=== PATIENT | female | born 1970 | race Caucasian/White ===

== ENCOUNTER 2017-04-13 12:12 | Emergency (ER) | payer OTHER ==
[2017-04-13 12:21] VITALS: BP 137/81; PULSE 103; RESP 16; TEMP 97.8
[2017-04-13] MEDS ORDERED: DIPH,PERTUS(ACELL)TETVAC-LF 0.5 ML VIAL IM ONE (12:41)
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
== END 2017-04-13 13:23 | disposition home or self-care (01) ==
LOC: EC 12:12
DX: S01.511A Laceration without foreign body of lip, initial encounter (principal); F17.200 Nicotine dependence, unspecified, uncomplicated; W26.0XXA Contact with knife, initial encounter; Y93.89 Activity, other specified; Y04.0XXA Assault by unarmed brawl or fight, initial encounter
CPT/HCPCS: 12011; 99284

== ENCOUNTER → 2019-02-15 | Outpatient (CLI) | payer OTHER ==
--- NOTE | 2019-02-15 16:20 | CT ---
EXAMINATION TYPE: CT chest wo con DATE OF EXAM: 02/15/2019 COMPARISON: 09/08/2015 HISTORY: SOB, HX OF COPD CT DLP: 98.4 mGycm, Automated exposure control for dose reduction was used. CONTRAST: Performed injected with 0 mL of Isovue 300. TECHNIQUE: Axial images were obtained at 5 mm thick sections. Reconstructed images are reviewed on Backtrace I/O computer in the coronal plane. FINDINGS: Portion of the thyroid visualized is normal. No suspicious lung nodules or focal infiltrates are present. There is hyperinflation compatible some emphysematous change. No enlarged mediastinal or hilar adenopathy is evident. The ascending aorta diameter at the level o f the main pulmonary artery is 3.1 cm. The main pulmonary artery diameter at the bifurcation is 2.[address] sections are obtained through the upper abdomen. Abdomen is essentially unremarkable. IMPRESSIONS: 1. Hyperinflation likely related to some emphysematous change. 2. Exam appears stable from 09/08/2015
== END | disposition home or self-care (01) ==
LOC: RADCTMAIN 13:08
PROVIDERS: ATTEND Internal Medicine Pulmonary Disease
DX: R91.8 Other nonspecific abnormal finding of lung field (principal); R06.02 Shortness of breath; R05 Cough
CPT/HCPCS: 71250

== ENCOUNTER → 2019-03-15 | Outpatient (CLI) | payer OTHER ==
--- NOTE | 2019-03-16 13:36 | ECHOF ---
Referral Reason:R06.02 Shortness of Breath R05 Cough MEASUREMENTS -------- HEIGHT: 170.2 cm WEIGHT: 41.3 kg BP: 113/73 RVIDd: 2.1 cm (< 3.3) IVSd: 1.0 cm (0.6 - 1.1) LVIDd: 3.1 cm (3.9 - 5.3) LVPWd: 1.0 cm (0.6 - 1.1) IVSs: 1.2 cm LVIDs: 1.9 cm LVPWs: 1.4 cm LA Diam: 1.9 cm (2.7 - 3.8) LAESV Index (A-L): 16.12 ml/m Ao Diam: 2.6 cm (2.0 - 3.7) AV Cusp: 1.5 cm (1.5 - 2.6) MV EXCURSION: 14.794 mm (> 18.000) MV EF SLOPE: 48 mm/s (70 - 150) EPSS: 0.6 cm MV E Efraín: 0.73 m/s MV DecT: 301 ms MV A Efraín: 0.62 m/s MV E/A Ratio: 1.18 RAP: 5.00 mmHg RVSP: 21.00 mmHg FINDINGS -------- Sinus rhythm. This was a technically adequate study. The left ventricular size is normal. Left ventricular wall thickness is normal. Overall left vent ricular systolic function is normal with, an EF between 60 - 65 %. The right ventricle is normal in size. Normal LA size by volume 22+/-6 ml/m2. The right atrium is normal in size. Interatrial and interventricular septum intact. The aortic valve is trileaflet and appears structurally normal. The mitral valve leaflets are mildly thickened. There is trace mitral regurgitation. Mild tricuspid regurgitation present. Right ventricular systolic pressure is normal at < 35 mmHg. CONCLUSIONS -------- 1. Sinus rhythm. 2. This was a technically adequate study. 3. The left ventricular size is normal. 4. Left ventricular wall thickness is normal. 5. Overall left ventricular systolic function is normal with, an EF between 60 - 65 %. 6. The right ventricle is normal in size. 7. Normal LA size by volume 22+/-6 ml/m2. 8. The right atrium is normal in size. 9. Interatrial and interventricular septum intact. 10. The aortic valve is trileaflet and appears structurally normal. 11. The mitral valve leaflets are mildly thickened. 12. There is trace mitral regurgitation. 13. Mild tricuspid regurgitation present. 14. Right ventricular systolic pressure is normal at < 35 mmHg. ORGAN BUILDER: Leilani Prieto RDCS
== END ==
LOC: RADECHMAIN 08:14
PROVIDERS: ATTEND Internal Medicine Pulmonary Disease
DX: I05.9 Rheumatic mitral valve disease, unspecified (principal); I07.1 Rheumatic tricuspid insufficiency
CPT/HCPCS: 93306

== ENCOUNTER 2019-06-13 16:02 | Emergency (ER) | payer OTHER ==
[2019-06-13] MEDS ORDERED: KETOROLAC 30 MG/ML 1 ML VIAL IM STA (16:28)
[2019-06-13 16:30] VITALS: BP 101/64; PULSE 87; RESP 18; TEMP 98
--- NOTE | 2019-06-13 17:10 | XR ---
EXAMINATION TYPE: XR knee complete RT DATE OF EXAM: 06/13/2019 COMPARISON: None HISTORY: Pain TECHNIQUE: Three-view right knee FINDINGS: No acute fractures or dislocations are evident. No joint effusion is evident. Joint spaces are preserved. IMPRESSION: 1. Normal three-view right knee. 2. Follow-up exams can be performed 7-10 days from acute trauma for continued pain.
--- NOTE | 2019-06-13 17:37 | ED ---
Lower Extremity Injury HPI - General Chief Complaint: Extremity Injury, Lower Stated Complaint: Knee Injury Time Seen by Provider: 06/13/19 16:22 Source: patient Mode of arrival: ambulatory Limitations: no limitations - History of Present Illness Initial Comments: 49-year-old female patient presents to the emergency department today for evaluation of right knee pain. Patient states just prior to arrival she was coming up the stairs when she tripped and fell forward hitting her knee on the stairs. Patient denies hitting her head or losing consciousness with the fall. Denies falling down any stairs. Does not take any blood thinning medications. Denies injury to other areas of her body. States she has increased pain when she attempts to bear weight on the knee however she is able to walk. Denies any numbness or tingling to the lower extremities. Denies any history of injury to the right knee. Patient denies any headache, neck pain, back pain, chest pain, shortness of breath, dizziness, weakness, abdominal pain, nausea, vomiting, or difficulties with bowel movements or urination. - Related Data Home Medications Medication Instructions Recorded Confirmed Budesonide-Formot 160-4.5 Mcg 2 puff INHALATION BID PRN 05/04/18 05/04/18 [Symbicort 160-4.5 Mcg Inhaler] Previous Rx's Medication Instructions Recorded Albuterol Nebulized [Ventolin 2.5 mg INHALATION Q6H PRN #60 nebu 10/06/15 Nebulized] Ibuprofen [Motrin] 600 mg PO Q8HR PRN #30 tab 06/13/19 Allergies Allergy/AdvReac Type Severity Reaction Status Date / Time No Known Allergies Allergy Verified 05/04/18 13:55 Review of Systems ROS Statement: Those systems with pertinent positive or pertinent negative responses have been documented in the HPI. ROS Other: All systems not noted in ROS Statement are negative. Past Medical History Past Medical History: COPD, Osteoarthritis (OA) Additional Past Medical History / Comment(s): currently has cold, going to see PCP 05/04/18 History of Any Multi-Drug Resistant Organisms: None Reported Past Surgical History: Appendectomy Additional Past Surgical History / Comment(s): ovarian removal r/t benign tumor, 2 etopic preg. eye sx for strabismus Past Anesthesia/Blood Transfusion Reactions: No Reported Reaction Past Psychological History: No Psychological Hx Reported Smoking Status: Current every day smoker Past Alcohol Use History: None Reported Past Drug Use History: None Reported - Past Family History Mother Family Medical History: No Reported History General Exam Limitations: no limitations General appearance: alert, in no apparent distress, other (This is a well- developed, well-nourished adult female patient in no acute distress. Vital signs upon presentation are temperature 98.0F, pulse 87, respirations 18, blood pressure 101/64, pulse ox 97% on room air.) Eye exam: Present: normal appearance, PERRL, EOMI. Absent: scleral icterus, conjunctival injection, periorbital swelling ENT exam: Present: normal exam, normal oropharynx, mucous membranes moist Neck exam: Present: normal inspection, full ROM, other (Nontender, no step-off, no deformity to firm midline palpation of the posterior cervical spine. Full range of motion without pain or limitation.). Absent: tenderness, meningismus, lymphadenopathy Respiratory exam: Present: normal lung sounds bilaterally. Absent: respiratory distress, wheezes, rales, rhonchi, stridor Cardiovascular Exam: Present: regular rate, normal rhythm, normal heart sounds. Absent: systolic murmur, diastolic murmur, rubs, gallop, clicks GI/Abdominal exam: Present: soft, normal bowel sounds. Absent: distended, tenderness, guarding, rebound, rigid Extremities exam: Present: full ROM, tenderness (Tenderness over the right anterior knee), normal capillary refill, other (Mild soft tissue swelling over the right anterior knee. No ecchymosis or abrasion. No laxity or pain with valgus varus maneuvers. No knee instability. Skin is otherwise pink, warm, dry. Cap refills less than 3 seconds. Pedal and posttibial pulses are 2+ and equal bilaterally.). Absent: normal inspection, pedal edema, joint swelling, calf tenderness Back exam: Present: normal inspection, other (Nontender, no step-off, no defo rmity to firm midline palpation of the thoracic and lumbar vertebrae. Full range of motion without pain or limitation.). Absent: vertebral tenderness Neurological exam: Present: alert, oriented X3, CN II-XII intact Psychiatric exam: Present: normal affect, normal mood Skin exam: Present: warm, dry, intact, normal color. Absent: rash Course Vital Signs 06/13/19 16:23 Temperature 98.0 F Pulse Rate 87 Respiratory 18 Rate Blood Pressure 101/64 O2 Sat by Pulse 97 Oximetry Medical Decision Making - Medical Decision Making 49-year-old female patient presented to the emergency department today for evaluation of right knee pain. Physical examination reveals some mild soft tissue swelling to the right knee. No joint instability. Neurovascular status is intact. X-rays were obtained and showed no acute abnormalities. Patient is given a Toradol injection. She is educated regarding ice, elevation, and alternating Tylenol and Motrin. She is instructed to follow-up with her primary care physician for recheck in 1-2 days. Return parameters were discussed in detail. She verbalizes understanding and agrees with this plan. - Radiology Data Radiology results: report reviewed, image reviewed 3 views of the right knee are obtained. Report was reviewed in its entirety. Impression by Dr. Doty shows normal 3 view right knee. Follow-up exams can be performed 7-10 days from acute trauma for continued pain. Disposition Clinical Impression: Strain of left knee, Contusion of left knee Disposition: HOME SELF-CARE Condition: Good Instructions (If sedation given, give patient instructions): Contusion in Adults (ED), Knee Pain (ED) Additional Instructions: Rest, ice, elevate the right knee. Apply ice 20 minutes at a time at least 4 times daily. Take Tylenol and Motrin for pain control. Follow up with your primary care physician for recheck in 1-2 days. Return to the emergency department immediately for any new, worsening, or concerning symptoms. Prescriptions: Ibuprofen [Motrin] 600 mg PO Q8HR PRN #30 tab PRN Reason: Pain Is patient prescribed a controlled substance at d/c from ED?: No Referrals: Hamzah Mac MD [Primary Care Provider] - 1-2 days Time of Disposition: 17:37
== END 2019-06-13 17:40 | disposition home or self-care (01) ==
LOC: EC 16:02
DX: S86.912A Strain of unspecified muscle(s) and tendon(s) at lower leg level, left leg, initial encounter (principal); J44.9 Chronic obstructive pulmonary disease, unspecified; F17.200 Nicotine dependence, unspecified, uncomplicated; W01.198A Fall on same level from slipping, tripping and stumbling with subsequent striking against other object, initial encounter
CPT/HCPCS: 73562; 99283; 96372; J1885

== ENCOUNTER → 2019-10-02 | Outpatient (CLI) | payer OTHER ==
[2019-10-02 14:30] VITALS: BP 111/75; PULSE 90; RESP 20; TEMP 98
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
[2019-10-02 20:34] LABS: HIV 1 AB Non-Reactive (Non-Reactive); HIV 2 AB Non-Reactive (Non-Reactive); HIV AB P24 Non-Reactive (Non-Reactive); HIV P24 AG Non-Reactive (Non-Reactive)
[2019-10-02 20:36] LABS: Hepatitis B Surface Antigen Non-Reactive (Non-Reactive); Hepatitis C IgG Antibody Non-Reactive (Non-Reactive)
[2019-10-03 14:39] LABS: C. trachomatis,PCR Negative (Neg,Equiv); Chlamydia trachomatis Source Cervix; N. gonorrhoeae,PCR Negative (Neg,Equiv); Neisseria Source Cervix
== END | disposition home or self-care (01) ==
LOC: WWCWWP 14:16
PROVIDERS: ATTEND Obstetrics & Gynecology
DX: Z11.3 Encounter for screening for infections with a predominantly sexual mode of transmission (principal)
CPT/HCPCS: 36415; 86780; 86803; 87340; 87390; 87491; 87591

== ENCOUNTER → 2019-10-02 | Outpatient (CLI) | payer OTHER ==
--- NOTE | 2019-10-02 14:44 | XR ---
Lumbar spine HISTORY: Low back pain 3 views of the lumbar spine Correlation to prior exam 07/18/2015, lumbar MRI 11/20/2015 There is no significant interval change. Loss of disc height at L5-S1 is again seen and may be normal variant. Lumbar vertebral bodies show preserved height, alignment, bone mineralization may be reduce d. Vascular calcifications present within the aorta anteriorly. IMPRESSION: No acute abnormality evident
== END | disposition home or self-care (01) ==
LOC: RADXRMAIN 13:55
PROVIDERS: ATTEND Internal Medicine
DX: M54.5 Low back pain (principal)
CPT/HCPCS: 72100

== ENCOUNTER 2020-08-01 18:06 | Inpatient (IN) | payer OTHER ==
[2020-08-01] MEDS ORDERED: ASPIRIN 81 MG PO STA (18:38)
[2020-08-01 19:11] LABS: Basophils % (A) 0 %; Eosinophils # (A) 0.1 k/uL (0-0.7); Eosinophils % (A) 2 %; HCT 45.9 % (34.0-46.0); HGB 15.4 gm/dL (11.4-16.0); Lymphocytes # (A) 2.5 k/uL (1.0-4.8); Lymphocytes % (A) 32 %; MCH 29.6 pg (25.0-35.0); MCHC 33.7 g/dL (31.0-37.0); Mean Platelet Volume 7.2; Monocytes # (A) 0.8 k/uL (0-1.0); Monocytes % (A) 10 %; Neutrophils # (A) 4.2 k/uL (1.3-7.7); Neutrophils % (A) 54 %; Platelet Count 387 k/uL (150-450); RBC 5.21 m/uL (3.80-5.40); WBC 7.7 k/uL (3.8-10.6)
[2020-08-01 19:20] LABS: INR 0.9 (<1.2); Partial Thromboplastin Time 25.1 sec (22.0-30.0); Prothrombin Time 9.8 sec (9.0-12.0)
[2020-08-01 19:33] LABS: ALT 13 U/L (4-34); AST 30 U/L (14-36); African American GFR (CKD) >90 (>60 ml/min/1.73 sqM); Albumin 4.9 g/dL (3.5-5.0); Alkaline Phosphatase 77 U/L (38-126); Anion Gap 10 mmol/L; Blood Urea Nitrogen 34 mg/dL (7-17); Calcium 10.3 mg/dL (8.4-10.2); Carbon Dioxide 23 mmol/L (22-30); Chloride 100 mmol/L (98-107); Glucose 115 mg/dL (74-99); Non-African American GFR(CKD) 79 (>60 ml/min/1.73 sqM); Potassium 3.7 mmol/L (3.5-5.1); Sodium 133 mmol/L (137-145); Total Bilirubin 0.9 mg/dL (0.2-1.3)
[2020-08-01 19:39] LABS: Amphetamine Screen,Urine Detected (NotDetected); Cocaine Screen,Urine Detected (NotDetected); Opiate Screen,Urine Not Detected (NotDetected); Phencyclidine Screen,Urine Not Detected (NotDetected); Urn Cannabinoid Scrn Not Detected (NotDetected)
[2020-08-01 19:40] LABS: Barbiturate Screen,Urine Not Detected (NotDetected); Benzodiazepines Screen,Urine Not Detected (NotDetected); Methadone Screen, Urine Not Detected (NotDetected); Oxycodone Screen, Urine Not Detected (NotDetected); Tricyclic Antidepressant,Urine Not Detected (NotDetected)
--- NOTE | 2020-08-01 19:40 | XR ---
EXAMINATION TYPE: XR chest 2V DATE OF EXAM: 08/01/2020 COMPARISON: 10/04/2015 HISTORY: Chest pain TECHNIQUE: FINDINGS: Heart and mediastinum are normal. Lungs are clear of infiltrate. There is mild pulmonary hy perinflation there is flattening of the diaphragm. There is mild pleural thickening at the lung apice s. Bony thorax is intact. IMPRESSION: COPD. No active cardiopulmonary disease. No change.
[2020-08-01] MEDS ORDERED: NALOXONE 0.4 MG/ML 1 ML VIAL IV PRN (20:27)
[2020-08-01] MEDS ORDERED: ONDANSETRON 4 MG/2 ML VIAL IVP PRN (20:27)
[2020-08-01] MEDS ORDERED: ASPIRIN 325 MG TAB PO STA (20:28)
[2020-08-01] MEDS ORDERED: NITROGLYCERIN SL TABS 0.4 MG TAB SUBLINGUAL PRN (20:28)
--- NOTE | 2020-08-01 20:29 | ED ---
General Adult HPI - General Chief complaint: Chest Pain Stated complaint: chest pain/anxiety Time Seen by Provider: 08/01/20 18:21 Source: patient Mode of arrival: wheelchair Limitations: no limitations - History of Present Illness Initial comments: 50-year-old female patient presents to the emergency department today for evaluation of intermittent chest pain over the last 3 days. Patient states that the chest pain comes on when she is experiencing high stress, states it is over the left side of her chest. States she does have some soreness in the left shoulder but denies any radiation down the arm or to her back. States with this she does get short of breath. States today she has been feeling nauseated. Denies any sweats. Patient does admit to using "crystal meth and crack". Denies any alcohol use. Does admit to smoking cigarettes. Her father has 7 cardiac stents. She was scheduled for cardiac catheterization on 08/08/[address] Sammy gomez. Patient denies any recent rash, fever, chills, cough, abdominal pain, diarrhea, constipation, back pain, numbness, tingling, dizziness, weakness, hematuria, dysuria, urinary urgency, urinary frequency, headache, visual changes, or any other complaints. - Related Data Home Medications Medication Instructions Recorded Confirmed Escitalopram [Lexapro] 10 mg PO HS 06/11/20 06/11/20 Oxybutynin Xl [Ditropan Xl] 5 mg PO HS 06/11/20 06/11/20 Previous Rx's Medication Instructions Recorded Albuterol Nebulized [Ventolin 2.5 mg INHALATION Q6H PRN #60 nebu 10/06/15 Nebulized] Allergies Allergy/AdvReac Type Severity Reaction Status Date / Time No Known Allergies Allergy Verified 08/01/20 18:15 Review of Systems ROS Statement: Those systems with pertinent positive or pertinent negative responses have been documented in the HPI. ROS Other: All systems not noted in ROS Statement are negative. Past Medical History Past Medical History: COPD, Osteoarthritis (OA) Additional Past Medical History / Comment(s): heart condition-she is uncertain of the exact diagnosis. 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 Large benign ovarian tumor previously removed. History of Any Multi-Drug Resistant Organisms: None Reported Past Surgical History: Appendectomy Additional Past Surgical History / Comment(s): ovarian removal r/t benign tumor, 2 ectopic preg. eye sx for strabismus Past Anesthesia/Blood Transfusion Reactions: No Reported Reaction Past Psychological History: No Psychological Hx Reported Smoking Status: Current every day smoker - Past Family History Mother Family Medical History: Cancer Additional Family Medical History / Comment(s): colon cancer. Father Family Medical History: Myocardial Infarction (ID) Additional Family Medical History / Comment(s): cerebral palsy. General Exam Limitations: no limitations General appearance: alert, in no apparent distress, other (This is a well- developed, well-nourished adult female patient in no acute distress. Vital signs upon presentation are temperature 97.6F, pulse 65, respirations 20, blood pressure 119/69, pulse ox 93% on room air.) Eye exam: Present: normal appearance, PERRL, EOMI. Absent: scleral icterus, conjunctival injection, periorbital swelling ENT exam: Present: normal exam, normal oropharynx, mucous membranes moist Respiratory exam: Present: normal lung sounds bilaterally. Absent: respiratory distress, wheezes, rales, rhonchi, stridor Cardiovascular Exam: Present: regular rate, normal rhythm, normal heart sounds. Absent: systolic murmur, diastolic murmur, rubs, gallop, clicks GI/Abdominal exam: Present: soft, normal bowel sounds. Absent: distended, tenderness, guarding, rebound, rigid Neurological exam: Present: alert, oriented X3, CN II-XII intact Psychiatric exam: Present: normal affect, normal mood Skin exam: Present: warm, dry, intact, normal color. Absent: rash Course Vital Signs 08/01/20 18:11 Temperature 97.6 F Pulse Rate 65 Respiratory 20 Rate Blood Pressure 119/69 O2 Sat by Pulse 93 L Oximetry Medical Decision Making - Medical Decision Making 50-year-old pleasant and cooperative female patient presents to the emergency department today for evaluation of chest pain intermittent over the last 3 days. Seems the pain comes on when she is a high stress situation and resolves at rest. Physical examination is unremarkable. Lungs are clear to auscultation. EKG does show right bundle branch block, last EKG here was from 2014 we have no more recent for comparison so this is a new finding. Labs reviewed and did reveal a normal troponin at this time. Her drug screen was positive for methamphetamines and cocaine. She was given aspirin. She is pain-free while in the emergency department. She'll be admitted to the hospital for serial troponins and further evaluation by cardiology in the morning. I did discuss findings, results, plan with the patient, she is agreeable. - Lab Data Result diagrams: 08/01/20 18:43 08/01/20 18:43 Lab Results 08/01/20 08/01/20 08/01/20 Range/Units 18:38 18:38 18:43 WBC 7.7 (3.8-10.6) k/uL RBC 5.21 (3.80-5.40) m/uL Hgb 15.4 (11.4-16.0) gm/dL Hct 45.9 (34.0-46.0) % MCV 88.0 (80.0-100.0) fL MCH 29.6 (25.0-35.0) pg MCHC 33.7 (31.0-37.0) g/dL RDW 13.0 (11.5-15.5) % Plt Count 387 (150-450) k/uL Neutrophils % 54 % Lymphocytes % 32 % Monocytes % 10 % Eosinophils % 2 % Basophils % 0 % Neutrophils # 4.2 (1.3-7.7) k/uL Lymphocytes # 2.5 (1.0-4.8) k/uL Monocytes # 0.8 (0-1.0) k/uL Eosinophils # 0.1 (0-0.7) k/uL Basophils # 0.0 (0-0.2) k/uL PT (9.0-12.0) sec INR (<1.2) APTT (22.0-30.0) sec Sodium (137-145) mmol/L Potassium (3.5-5.1) mmol/L Chloride (98-107) mmol/L Carbon Dioxide (22-30) mmol/L Anion Gap mmol/L BUN (7-17) mg/dL Creatinine (0.52-1.04) mg/dL Est GFR (CKD-EPI)AfAm (>60 ml/min/1.73 sqM) Est GFR (CKD-EPI)NonAf (>60 ml/min/1.73 sqM) Glucose (74-99) mg/dL Calcium (8.4-10.2) mg/dL Magnesium (1.6-2.3) mg/dL Total Bilirubin (0.2-1.3) mg/dL AST (14-36) U/L ALT (4-34) U/L Alkaline Phosphatase (38-126) U/L Troponin I <0.012 (0.000-0.034) ng/mL Total Protein (6.3-8.2) g/dL Albumin (3.5-5.0) g/dL Urine Opiates Screen Not Detected (NotDetected) Ur Oxycodone Screen Not Detected (NotDetected) Urine Methadone Screen Not Detected (NotDetected) Ur Propoxyphene Screen Not Detected (NotDetected) Ur Barbiturates Screen Not Detected (NotDetected) U Tricyclic Antidepress Not Detected (NotDetected) Ur Phencyclidine Scrn Not Detected (NotDetected) Ur Amphetamines Screen Detected H (NotDetected) U Methamphetamines Scrn Detected H (NotDetected) U Benzodiazepines Scrn Not Detected (NotDetected) Urine Cocaine Screen Detected H (NotDetected) U Marijuana (THC) Screen Not Detected (NotDetected) 08/01/20 08/01/20 Range/Units 18:43 18:43 WBC (3.8-10.6) k/uL RBC (3.80-5.40) m/uL Hgb (11.4-16.0) gm/dL Hct (34.0-46.0) % MCV (80.0-100.0) fL MCH (25.0-35.0) pg MCHC (31.0-37.0) g/dL RDW (11.5-15.5) % Plt Count (150-450) k/uL Neutrophils % % Lymphocytes % % Monocytes % % Eosinophils % % Basophils % % Neutrophils # (1.3-7.7) k/uL Lymphocytes # (1.0-4.8) k/uL Monocytes # (0-1.0) k/uL Eosinophils # (0-0.7) k/uL Basophils # (0-0.2) k/uL PT 9.8 (9.0-12.0) sec INR 0.9 (<1.2) APTT 25.1 (22.0-30.0) sec Sodium 133 L (137-145) mmol/L Potassium 3.7 (3.5-5.1) mmol/L Chloride 100 (98-107) mmol/L Carbon Dioxide 23 (22-30) mmol/L Anion Gap 10 mmol/L BUN 34 H (7-17) mg/dL Creatinine 0.86 (0.52-1.04) mg/dL Est GFR (CKD-EPI)AfAm >90 (>60 ml/min/1.73 sqM) Est GFR (CKD-EPI)NonAf 79 (>60 ml/min/1.73 sqM) Glucose 115 H (74-99) mg/dL Calcium 10.3 H (8.4-10.2) mg/dL Magnesium 2.0 (1.6-2.3) mg/dL Total Bilirubin 0.9 (0.2-1.3) mg/dL AST 30 (14-36) U/L ALT 13 (4-34) U/L Alkaline Phosphatase 77 (38-126) U/L Troponin I (0.000-0.034) ng/mL Total Protein 8.0 (6.3-8.2) g/dL Albumin 4.9 (3.5-5.0) g/dL Urine Opiates Screen (NotDetected) Ur Oxycodone Screen (NotDetected) Urine Methadone Screen (NotDetected) Ur Propoxyphene Screen (NotDetected) Ur Barbiturates Screen (NotDetected) U Tricyclic Antidepress (NotDetected) Ur Phencyclidine Scrn (NotDetected) Ur Amphetamines Screen (NotDetected) U Methamphetamines Scrn (NotDetected) U Benzodiazepines Scrn (NotDetected) Urine Cocaine Screen (NotDetected) U Marijuana (THC) Screen (NotDetected) - EKG Data -: EKG Interpreted by Me EKG Comments: EKG obtained at 1823 shows normal sinus rhythm with right bundle branch block. Ventricular rate of 77, OR interval 112, QRS duration 128, QT 398, QTC 450. - Radiology Data Radiology results: report reviewed, image reviewed Two-view x-ray of the chest is obtained. Report was reviewed in its entirety. Impression by Dr. Krishnan shows COPD. No active cardiopulmonary disease. No change. Disposition Clinical Impression: Chest pain, Polysubstance abuse Disposition: ADMITTED IP TO THIS [facility] Condition: Serious Referrals: Hamzah Mac MD [Primary Care Provider] - 1-2 days Decision to Admit Reason: Admit from EC Decision Date: 08/01/20 Decision Time: 20:29
[2020-08-01] MEDS: METOPROLOL SUCCINATE (ER) 25 MG TAB.ER.24H PO SCH (23:47)
[2020-08-01] MEDS: ESCITALOPRAM 10 MG TAB PO SCH (23:48)
[2020-08-01] MEDS: OXYBUTYNIN CHLORIDE 5 MG TAB PO SCH (23:48)
[2020-08-02] MEDS ORDERED: ALPRAZolam 0.5 MG TAB PO PRN (10:58)
[2020-08-02] MEDS ORDERED: ALPRAZolam 0.25 MG TAB PO PRN (10:58)
[2020-08-02] MEDS: NICOTINE 21MG/24HR PATCH TRANSDERM SCH (11:35)
[2020-08-02] MEDS: ASPIRIN 81 MG PO SCH (11:35)
--- NOTE | 2020-08-02 11:42 | P.HPIM ---
History of Present Illness H&P Date: 08/02/20 Chief Complaint: Chest pain Nicci August, is a 50-year-old female who presented to [facility] emergency room with a chief complaint of chest pain, patient describes a pressure sensation in the left side of her chest on and off for the last 3 days, exacerbated by physical activity or stress. Patient was evaluated in the emergency room, her vital examination on presentation revealed a temperature of 97.6 pulse 65 respiration 20 blood pressure 119/69 pulse ox 93% on room air, her white blood count was 7.7 hemoglobin 15.4 platelet count 387 PT and PTT were within normal limits sodium 133 BUN elevated at 34 glucose slightly elevated at 1:15 calcium slightly elevated at 10.3 troponin level were normal. EKG reveals normal sinus rhythm with biatrial enlargement and right bundle branch block, chest x-ray revealed evidence of COPD otherwise no active cardiopulmonary disease. Urine toxicology screen was positive for amphetamine, methamphetamine, and cocaine. Patient admits to using methamphetamine and cocaine, but stated that that was several days prior to presentation. Patient has been having episodes of on and off of chest pain she was seen by Dr. Coburn as outpatient she underwent a stress test about 4 months ago, she was scheduled to have cardiac catheterization however she missed her appointment for that. Past medical history is significant for history of hypertension, history of depression, history of COPD, history of urinary incontinence. Patient smokes about 1 pack per day, she denies any alcohol use, she admitted to using cocaine and methamphetamine in the last 7 days. On review of systems patient is alert and oriented 3 in no distress, there is no fever or chills no headache or dizziness no chest pain at this time, no maureen rtness of breath no cough no nausea or vomiting no abdominal pain no diarrhea no blood in the stools no burning with urination no frequency or urgency and no hematuria no change in vision or gait or speech, no numbness or weakness in any of the extremities. Past Medical History Past Medical History: COPD, Osteoarthritis (OA) Additional Past Medical History / Comment(s): heart condition-she is uncertain of the exact diagnosis. 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 Large benign ovarian tumor previously removed. History of Any Multi-Drug Resistant Organisms: None Reported Past Surgical History: Appendectomy Additional Past Surgical History / Comment(s): ovarian removal r/t benign tumor, 2 ectopic preg. 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 She states she has not used cocaine since NOV 21, 2019-THEN 2 WEEKS AGO. She denies any other drug use including marijuana or IV drugs. Positive for cocaine and meth - Past Family History Mother Family Medical History: Cancer Additional Family Medical History / Comment(s): colon cancer. Father Family Medical History: Myocardial Infarction ([place]) Additional Family Medical History / Comment(s): cerebral palsy. Medications and Allergies Home Medications Medication Instructions Recorded Confirmed Type Escitalopram [Lexapro] 10 mg PO HS 06/11/20 08/01/20 History Aspirin EC [Ecotrin Low Dose] 81 mg PO DAILY 08/01/20 08/01/20 History Metoprolol Succinate [Toprol XL] 25 mg PO HS 08/01/20 08/01/20 History Oxybutynin Chloride [Ditropan] 5 mg PO HS 08/01/20 08/01/20 History Allergies Allergy/AdvReac Type Severity Reaction Status Date / Time No Known Allergies Allergy Verified 08/01/20 20:45 Physical Exam Vitals: Vital Signs Temp Pulse Pulse Resp BP BP Pulse Ox 08/02/20 09:00 70 20 08/02/20 08:17 98.4 F 70 20 121/94 94 L 08/02/20 03:00 98.1 F 90 16 99/62 95 08/01/20 21:13 97.4 F L 85 16 126/74 97 08/01/20 20:41 95 16 107/84 97 08/01/20 18:11 97.6 F 65 20 119/69 93 L Intake and Output 08/01/20 08/02/20 08/02/20 22:59 06:59 14:59 Other: Voiding Method Toilet Toilet # Voids 1 2 Weight 43.091 kg In general patient is alert and oriented 3 in no distress HEENT head normocephalic and atraumatic Neck is supple no JVD no goiter no lymphadenopathy Chest exam reveals a few scattered rhonchi no wheezing Cardiac exam reveals regular heart sounds no gallops no murmurs Abdomen is soft nontender no organomegaly with normal bowel sounds Extremity exam reveals no edema no cyanosis or clubbing Neurological examination reveals no gross focal deficit Results CBC & Chem 7: 08/01/20 18:43 08/01/20 18:43 Labs: Abnormal Lab Results - Last 24 Hours (Table) 08/01/20 08/01/20 Range/Units 18:38 18:43 Sodium 133 L (137-145) mmol/L BUN 34 H (7-17) mg/dL Glucose 115 H (74-99) mg/dL Calcium 10.3 H (8.4-10.2) mg/dL Ur Amphetamines Screen Detected H (NotDetected) U Methamphetamines Scrn Detected H (NotDetected) Urine Cocaine Screen Detected H (NotDetected) Thrombosis Risk Factor Assmnt - Choose All That Apply Each Factor Represents 1 point: Abnormal pulmonary function (COPD), Age 41-60 years Other Risk Factors: No Other congenital or acquired thrombophilia - If yes, enter type in comment: No Thrombosis Risk Factor Assessment Total Risk Factor Score: 2 Thrombosis Risk Factor Assessment Level: Low Risk Assessment and Plan Plan: 1. Episodes of chest pain 2. Underlying history of hypertension 3. Tobacco abuse. 4. Underlying history of drug use including methamphetamine and cocaine 5. Poor compliance with medical advice patient was scheduled to have cardiac catheterization as outpatient however she missed her appointment. 6. Underlying history of COPD At this time patient is admitted to observation unit with telemetry Serial troponin levels are negative Cardiology consultation was requested Patient was counseled in length in regards to drug use and tobacco abuse Will follow closely
--- NOTE | 2020-08-02 12:00 | P.CRDCN ---
History of Present Illness History of present illness: HISTORY OF PRESENTING ILLNESS This is a pleasant 50-year-old female past medical history significant for probably substance abuse, hypertension and chronic nicotine dependence. She follows in the office with Dr. Dutton. We have been asked to see in consultation for chest pain. She states yesterday while being involved in a stressful situation arguing on the phone she developed a pressure sensation in the left precordial region associated with shortness of breath and palpitations. She states this isn't happening to her off-and-on for many years and seems to be related to any sort of stressful type activity. She has undergone stress test in the office most recently May 2020. The stress test was negative for stress-induced ischemia. Given her persistent ongoing chest discomfort the patient requested cardiac catheterization and Dr. Dutton scheduled her to have this done however she was unable to make it for that scheduled test and had been canceled. She has had no further symptoms of chest discomfort since arriving at the hospital. Of note she is extremely anxious and jittery. Rapid urine drug screen revealed amphetamines methamphetamines and cocaine in her system. The patient states she last used on Tuesday. DIAGNOSTICS EKG reveals sinus mechanism with right bundle branch block. Chest xray reveals underlying COPD with no acute cardiopulmonary process. Laboratory reviewed, CBC unremarkable, sodium 133, potassium 3.7, creatinine 0.86, magnesium 2.0, cardiac enzymes negative 3. Current cardiac medications include aspirin 81 mg daily and Toprol 25 mg at bedtime. REVIEW OF SYSTEMS At the time of my exam: CONSTITUTIONAL: Denies fever or chills. CARDIOVASCULAR: Denies chest pain, shortness of breath, orthopnea, PND or palpitations. RESPIRATORY: Denies cough. GASTROINTESTINAL: Denies abdominal pain, diarrhea, constipation, nausea or vomiting. MUSCULOSKELETAL: Denies myalgias. NEUROLOGIC: Denies numbness, tingling or weakness. ENDOCRINE: Denies fatigue, weight change, polydipsia or polyurina. GENITOURINARY: Denies burning, hematuria or urgency with micturation. HEMATOLOGIC: Denies history of anemia or bleeding. PHYSICAL EXAMINATION Blood pressure 121/94 heart rate 70 afebrile and maintaining oxygen saturation on room air. CONSTITUTIONAL: No apparent distress. Frail. HEENT: Head is normocephalic. Pupils are equal, round. Sclerae anicteric. Mucous membranes of the mouth are moist. No JVD. No carotid bruit. CHEST EXAMINATION: Lungs are clear to auscultation. No chest wall tenderness is noted on palpation or with deep breathing. Diminished. HEART EXAMINATION: Regular rate and rhythm. S1, S2 heard. No murmurs, gallops or rub. ABDOMEN: Soft, nontender. Positive bowel sounds. EXTREMITIES: 2+ peripheral pulses, no lower extremity edema and no calf tenderness. NEUROLOGIC EXAMINATION: Patient is awake, alert and oriented x3. ASSESSMENT Chest pain Polysubstance abuse, positive for amphetamines, methamphetamines and cocaine Chronic nicotine dependence Hypertension PLAN An acute coronary event has been ruled out. Obtain 2D echocardiogram and doppler study to assess cardiac structure and function. We will schedule her to undergo cardiac catheterization Tuesday with Dr. Dutton. Thank you kindly for this consultation. Nurse Practitioner note has been reviewed, I agree with a documented findings and plan of care. Patient was seen and examined. Past Medical History Past Medical History: COPD, Osteoarthritis (OA) Additional Past Medical History / Comment(s): heart condition-she is uncertain of the exact diagnosis. 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 Large benign ovarian tumor previously removed. History of Any Multi-Drug Resistant Organisms: None Reported Past Surgical History: Appendectomy Additional Past Surgical History / Comment(s): ovarian removal r/t benign tumor, 2 ectopic preg. 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 She states she has not used cocaine since NOV 21, 2019-THEN 2 WEEKS AGO. She denies any other drug use including marijuana or IV drugs. Positive for cocaine and meth - Past Family History Mother Family Medical History: Cancer Additional Family Medical History / Comment(s): colon cancer. Father Family Medical History: Myocardial Infarction ([place]) Additional Family Medical History / Comment(s): cerebral palsy. Medications and Allergies Home Medications Medication Instructions Recorded Confirmed Type Escitalopram [Lexapro] 10 mg PO HS 06/11/20 08/01/20 History Aspirin EC [Ecotrin Low Dose] 81 mg PO DAILY 08/01/20 08/01/20 History Metoprolol Succinate [Toprol XL] 25 mg PO HS 08/01/20 08/01/20 History Oxybutynin Chloride [Ditropan] 5 mg PO HS 08/01/20 08/01/20 History Allergies Allergy/AdvReac Type Severity Reaction Status Date / Time No Known Allergies Allergy Verified 08/01/20 20:45 Physical Exam Vitals: Vital Signs Temp Pulse Pulse Resp BP BP Pulse Ox 08/02/20 09:00 70 20 08/02/20 08:17 98.4 F 70 20 121/94 94 L 08/02/20 03:00 98.1 F 90 16 99/62 95 08/01/20 21:13 97.4 F L 85 16 126/74 97 08/01/20 20:41 95 16 107/84 97 08/01/20 18:11 97.6 F 65 20 119/69 93 L Intake and Output 08/01/20 08/02/20 08/02/20 22:59 06:59 14:59 Other: Voiding Method Toilet Toilet # Voids 1 2 Weight 43.091 kg Results 08/01/20 18:43 08/01/20 18:43 Cardiac Enzymes 08/01/20 08/01/20 08/01/20 Range/Units 18:38 18:43 21:30 AST 30 (14-36) U/L Troponin I <0.012 <0.012 (0.000-0.034) ng/mL 08/02/20 Range/Units 01:05 AST (14-36) U/L Troponin I <0.012 (0.000-0.034) ng/mL Coagulation 08/01/20 Range/Units 18:43 PT 9.8 (9.0-12.0) sec APTT 25.1 (22.0-30.0) sec CBC 08/01/20 Range/Units 18:43 WBC 7.7 (3.8-10.6) k/uL RBC 5.21 (3.80-5.40) m/uL Hgb 15.4 (11.4-16.0) gm/dL Hct 45.9 (34.0-46.0) % Plt Count 387 (150-450) k/uL Comprehensive Metabolic Panel 08/01/20 Range/Units 18:43 Sodium 133 L (137-145) mmol/L Potassium 3.7 (3.5-5.1) mmol/L Chloride 100 (98-107) mmol/L Carbon Dioxide 23 (22-30) mmol/L BUN 34 H (7-17) mg/dL Creatinine 0.86 (0.52-1.04) mg/dL Glucose 115 H (74-99) mg/dL Calcium 10.3 H (8.4-10.2) mg/dL AST 30 (14-36) U/L ALT 13 (4-34) U/L Alkaline Phosphatase 77 (38-126) U/L Total Protein 8.0 (6.3-8.2) g/dL Albumin 4.9 (3.5-5.0) g/dL Current Medications Generic Name Dose Route Start Last Admin Trade Name Freq PRN Reason Stop Dose Admin Alprazolam 0.25 mg 08/02/20 10:58 Alprazolam 0.25 Mg Tab PO Q6HR PRN Mild Anxiety Alprazolam 0.5 mg 08/02/20 10:58 Alprazolam 0.5 Mg Tab PO Q6HR PRN Moderate Anxiety Aspirin 81 mg 08/02/20 09:00 08/02/20 11:35 Aspirin 81 Mg PO 81 mg DAILY CAMI Administration Enoxaparin Sodium 40 mg 08/02/20 11:45 Enoxaparin 40 Mg/0.4 Ml Syringe SQ DAILY CAMI Escitalopram Oxalate 10 mg 08/01/20 23:45 08/01/20 23:48 Escitalopram 10 Mg Tab PO 10 mg HS CAMI Administration Sodium Chloride 1,000 ml/ IV 1,000 mls @ 43.091 mls/hr 08/04/20 06:00 Solution IV 08/05/20 05:12 .[id number] ONE 1 ML/KG/HR Metoprolol Succinate 25 mg 08/01/20 23:45 08/01/20 23:47 Metoprolol Succinate (Er) 25 Mg Tab.Er.24h PO 25 mg HS CAMI Administration Naloxone HCl 0.2 mg 08/01/20 20:27 Naloxone 0.4 Mg/Ml 1 Ml Vial IV Q2M PRN Opioid Reversal Nicotine 1 patch 08/02/20 11:30 08/02/20 11:35 Nicotine 21mg/24hr Patch TRANSDERM 1 patch DAILY CAMI Administration Nitroglycerin 0.4 mg 08/01/20 20:28 Nitroglycerin Sl Tabs 0.4 Mg Tab SUBLINGUAL Q5M PRN Chest Pain Ondansetron HCl 4 mg 08/01/20 20:27 08/01/20 22:17 Ondansetron 4 Mg/2 Ml Vial IVP 4 mg Q8HR PRN Administration Nausea And Vomiting Oxybutynin Chloride 5 mg 08/01/20 23:45 08/01/20 23:48 Oxybutynin Chloride 5 Mg Tab PO 5 mg HS CAMI Administration Intake and Output 08/01/20 08/02/20 08/02/20 22:59 06:59 14:59 Other: Voiding Method Toilet Toilet # Voids 1 2 Weight 43.091 kg 08/01/20 18:43 08/01/20 18:43
[2020-08-02] MEDS: ENOXAPARIN 40 MG/0.4 ML SYRINGE SQ SCH (12:50)
[2020-08-02 13:25] VITALS: BMI 14.8
--- NOTE | 2020-08-02 16:07 | ECHOF ---
Referral Reason: MEASUREMENTS -------- HEIGHT: 170.2 cm WEIGHT: 43.1 kg BP: 121/94 RVIDd: 2.3 cm (< 3.3) IVSd: 0.9 cm (0.6 - 1.1) LVIDd: 3.5 cm (3.9 - 5.3) LVPWd: 0.9 cm (0.6 - 1.1) IVSs: 1.3 cm LVIDs: 2.2 cm LVPWs: 1.3 cm LA Diam: 2.3 cm (2.7 - 3.8) Ao Diam: 2.8 cm (2.0 - 3.7) AV Cusp: 1.6 cm (1.5 - 2.6) MV EXCURSION: 16.052 mm (> 18.000) MV EF SLOPE: 75 mm/s (70 - 150) EPSS: 0.3 cm MV E Efraín: 0.58 m/s MV DecT: 373 ms MV A Efraín: 0.67 m/s MV E/A Ratio: 0.86 FINDINGS -------- Sinus rhythm. This was a technically adequate study. The left ventricular size is normal. Left ventricular wall thickness is normal. Overall left vent ricular systolic function is normal with, an EF between 60 - 65 %. The right ventricle is normal in size. The left atrium is normal in size. The right atrium is normal in size. Interatrial and interventricular septum intact. The aortic valve is trileaflet, and appears structurally normal. No aortic stenosis or regurgitation. The mitral valve is normal. The tricuspid valve appears structurally normal. There is no pulmonic regurgitation present. The aortic root size is normal. Normal inferior vena cava with normal inspiratory collapse consistent with estimated right atrial pre ssure of 5 mmHg. There is no pericardial effusion. CONCLUSIONS -------- 1. The left ventricular size is normal. 2. Left ventricular wall thickness is normal. 3. Overall left ventricular systolic function is normal with, an EF between 60 - 65 %. 4. There is no pericardial effusion. FLAT BREAKDOWN PROCESSOR: Leilani Prieto, [facility]
[2020-08-02] MEDS: METOPROLOL SUCCINATE (ER) 25 MG TAB.ER.24H PO SCH (21:57)
[2020-08-02] MEDS: ESCITALOPRAM 10 MG TAB PO SCH (21:57)
[2020-08-02] MEDS: OXYBUTYNIN CHLORIDE 5 MG TAB PO SCH (21:57)
[2020-08-03 05:46] LABS: Basophils # (A) 0.1 k/uL (0-0.2); Basophils % (A) 1 %; Eosinophils # (A) 0.1 k/uL (0-0.7); Eosinophils % (A) 2 %; HCT 45.3 % (34.0-46.0); HGB 15.1 gm/dL (11.4-16.0); Lymphocytes # (A) 2.3 k/uL (1.0-4.8); Lymphocytes % (A) 38 %; MCH 29.8 pg (25.0-35.0); MCHC 33.3 g/dL (31.0-37.0); MCV 89.3 fL (80.0-100.0); Mean Platelet Volume 7.1; Monocytes # (A) 0.6 k/uL (0-1.0); Monocytes % (A) 9 %; Neutrophils # (A) 2.7 k/uL (1.3-7.7); Neutrophils % (A) 45 %; Platelet Count 321 k/uL (150-450); RBC 5.07 m/uL (3.80-5.40); RDW 12.5 % (11.5-15.5)
[2020-08-03 05:58] LABS: ALT 11 U/L (4-34); AST 25 U/L (14-36); African American GFR (CKD) >90 (>60 ml/min/1.73 sqM); Albumin 4.4 g/dL (3.5-5.0); Alkaline Phosphatase 73 U/L (38-126); Anion Gap 5 mmol/L; Blood Urea Nitrogen 23 mg/dL (7-17); Calcium 9.5 mg/dL (8.4-10.2); Carbon Dioxide 30 mmol/L (22-30); Chloride 97 mmol/L (98-107); Glucose 113 mg/dL (74-99); Non-African American GFR(CKD) >90 (>60 ml/min/1.73 sqM); Potassium 3.5 mmol/L (3.5-5.1); Sodium 132 mmol/L (137-145); Total Bilirubin 0.8 mg/dL (0.2-1.3)
[2020-08-03] MEDS: ENOXAPARIN 40 MG/0.4 ML SYRINGE SQ SCH (09:48)
[2020-08-03] MEDS: NICOTINE 21MG/24HR PATCH TRANSDERM SCH (09:48)
[2020-08-03] MEDS: ASPIRIN 81 MG PO SCH (09:48)
--- NOTE | 2020-08-03 12:17 | P.PN ---
Subjective HISTORY OF PRESENTING ILLNESS This is a pleasant 50-year-old female past medical history significant for probably substance abuse, hypertension and chronic nicotine dependence. She follows in the office with Dr. Dutton. She is seen and examined resting comfortably in bed in no acute distress. She denies any further episodes of chest pain or shortness of breath. No dizziness, palpitations, nausea, vomiting or diaphoresis. Blood pressure 109/72 heart rate 69 afebrile maintaining oxygen saturation on room air. Echocardiogram obtained revealed preserved LV systolic function with EF 60-65%. Laboratory data reviewed, CBC unremarkable, sodium 132, potassium 3.5, creatinine 0.69. PHYSICAL EXAMINATION CONSTITUTIONAL: No apparent distress. Frail. HEENT: Head is normocephalic. Pupils are equal, round. Sclerae anicteric. Mucous membranes of the mouth are moist. No JVD. No carotid bruit. CHEST EXAMINATION: Lungs are clear to auscultation. No chest wall tenderness is noted on palpation or with deep breathing. Diminished. HEART EXAMINATION: Regular rate and rhythm. S1, S2 heard. No murmurs, gallops or rub. EXTREMITIES: 2+ peripheral pulses, no lower extremity edema and no calf tenderness. ASSESSMENT Chest pain Polysubstance abuse, positive for amphetamines, methamphetamines and cocaine Chronic nicotine dependence Hypertension PLAN Clinically stable. Proceed with catheterization tomorrow as discussed. I have discussed the risks, benefits and alternative therapies for the above-mentioned procedure and for both sedation/analgesia as well as necessary blood product administration, if indicated, as they pertain to this patient. The patient has indicated understanding and acceptance of the risks and procedures discussed. Questions have been answered appropriately and she is agreeable to move forward with the above-stated procedure. Nothing by mouth after midnight tonight. Nurse Practitioner note has been reviewed, I agree with a documented findings and plan of care. Patient was seen and examined. Objective - Vital Signs Vital signs: Vital Signs Temp 98.0 F 08/03/20 09:00 Pulse 69 08/03/20 09:00 Resp 14 08/03/20 09:00 BP 109/72 08/03/20 09:00 Pulse Ox 97 08/03/20 10:56 Intake & Output 08/02/20 08/03/20 08/03/20 18:59 06:59 18:59 Intake Total 1110 486 444 Balance 1110 486 444 Weight 43.091 kg Intake: Oral 1110 435 444 Other: Voiding Method Toilet Toilet Toilet # Voids 2 1 - Labs CBC & Chem 7: 08/03/20 05:26 08/03/20 05:26 Labs: Abnormal Lab Results - Last 24 Hours (Table) 08/03/20 Range/Units 05:26 Sodium 132 L (137-145) mmol/L Chloride 97 L (98-107) mmol/L BUN 23 H (7-17) mg/dL Glucose 113 H (74-99) mg/dL
--- NOTE | 2020-08-03 12:22 | P.PN ---
Subjective Progress Note Date: 08/03/20 Nicci August, is a 50-year-old female who presented to [facility] emergency room with a chief complaint of chest pain, patient describes a pressure sensation in the left side of her chest on and off for the last 3 days, exacerbated by physical activity or stress. Patient was evaluated in the emergency room, her vital examination on presentation revealed a temperature of 97.6 pulse 65 respiration 20 blood pressure 119/69 pulse ox 93% on room air, her white blood count was 7.7 hemoglobin 15.4 platelet count 387 PT and PTT were within normal limits sodium 133 BUN elevated at 34 glucose slightly elevated at 1:15 calcium slightly elevated at 10.3 troponin level were normal. EKG reveals normal sinus rhythm with biatrial enlargement and right bundle branch block, chest x-ray revealed evidence of COPD otherwise no active cardiopulmonary disease. Urine toxicology screen was positive for amphetamine, methamphetamine, and cocaine. Patient admits to using methamphetamine and cocaine, but stated that that was several days prior to presentation. Patient has been having episodes of on and off of chest pain she was seen by Dr. Coburn as outpatient she underwent a stress test about 4 months ago, she was scheduled to have cardiac catheterization however she missed her appointment for that. Past medical history is significant for history of hypertension, history of depression, history of COPD, history of urinary incontinence. Patient smokes about 1 pack per day, she denies any alcohol use, she admitted to using cocaine and methamphetamine in the last 7 days. On 08/03/2020 patient was seen and examined on the telemetry floor she is alert and oriented 3 in no apparent distress she is still having episodes of chest pain she stated that she gets them when she gets upset otherwise she denies any symptoms there is no fever or chills no headache or dizziness no palpitation no cough no nausea or vomiting no abdominal pain no diarrhea no blood in the stools no burning with urination no frequency or urgency and no hematuria. Plan per cardiology is to proceed with cardiac catheterization tomorrow. Objective - Vital Signs Vital signs: Vital Signs Temp 98.0 F 08/03/20 09:00 Pulse 69 08/03/20 09:00 Resp 14 08/03/20 09:00 BP 109/72 08/03/20 09:00 Pulse Ox 97 08/03/20 10:56 Intake & Output 08/02/20 08/03/2008/03/20 18:59 06:59 18:59 Intake Total 1110 486 444 Balance 1110 486 444 Weight 43.091 kg Intake: Oral 1110 486 444 Other: Voiding Method Toilet Toilet Toilet # Voids 2 1 - Exam In general patient is alert and oriented 3 in no distress HEENT head normocephalic and atraumatic Neck is supple no JVD no goiter no lymphadenopathy Chest exam reveals a few scattered rhonchi no wheezing Cardiac exam reveals regular heart sounds no gallops no murmurs Abdomen is soft nontender no organomegaly with normal bowel sounds Extremity exam reveals no edema no cyanosis or clubbing Neurological examination reveals no gross focal deficit - Labs CBC & Chem 7: 08/03/20 05:26 08/03/20 05:26 Labs: Abnormal Lab Results - Last 24 Hours (Table) 08/03/20 Range/Units 05:26 Sodium 132 L (137-145) mmol/L Chloride 97 L (98-107) mmol/L BUN 23 H (7-17) mg/dL Glucose 113 H (74-99) mg/dL Assessment and Plan Plan: 1. Episodes of chest pain 2. Underlying history of hypertension 3. Tobacco abuse. 4. Underlying history of drug use including methamphetamine and cocaine 5. Poor compliance with medical advice patient was scheduled to have cardiac catheterization as outpatient however she missed her appointment. 6. Underlying history of COPD At this time patient is admitted to observation unit with telemetry Serial troponin levels are negative Cardiology consultation was requested, plan is to proceed with cardiac catheterization tomorrow Proton X added to her regimen Patient was counseled in length in regards to drug use and tobacco abuse Will follow closely
[2020-08-03] MEDS: PANTOPRAZOLE 40 MG TABLET PO SCH (13:01)
[2020-08-03] MEDS: METOPROLOL SUCCINATE (ER) 25 MG TAB.ER.24H PO SCH (20:16)
[2020-08-03] MEDS: OXYBUTYNIN CHLORIDE 5 MG TAB PO SCH (20:16)
[2020-08-03] MEDS: ESCITALOPRAM 10 MG TAB PO SCH (20:17)
[2020-08-04] MEDS ORDERED: SODIUM CHLORIDE 0.9% 1,000 ML in EMPTY BAG 1 BAG IV ONE (06:00)
[2020-08-04] MEDS ORDERED: ASPIRIN 81 MG PO ONE (06:00)
[2020-08-04 06:16] LABS: Basophils # (A) 0.1 k/uL (0-0.2); Basophils % (A) 1 %; Eosinophils # (A) 0.1 k/uL (0-0.7); Eosinophils % (A) 2 %; HCT 44.6 % (34.0-46.0); HGB 14.4 gm/dL (11.4-16.0); Lymphocytes # (A) 1.8 k/uL (1.0-4.8); Lymphocytes % (A) 36 %; MCH 28.9 pg (25.0-35.0); MCHC 32.3 g/dL (31.0-37.0); MCV 89.5 fL (80.0-100.0); Mean Platelet Volume 7.4; Monocytes # (A) 0.5 k/uL (0-1.0); Monocytes % (A) 9 %; Neutrophils # (A) 2.5 k/uL (1.3-7.7); Neutrophils % (A) 49 %; Platelet Count 290 k/uL (150-450); RBC 4.99 m/uL (3.80-5.40); RDW 12.4 % (11.5-15.5); WBC 5.1 k/uL (3.8-10.6)
[2020-08-04 06:34] LABS: Potassium 4.2 mmol/L (3.5-5.1)
[2020-08-04 06:35] LABS: ALT 11 U/L (4-34); AST 24 U/L (14-36); African American GFR (CKD) >90 (>60 ml/min/1.73 sqM); Albumin 4.1 g/dL (3.5-5.0); Alkaline Phosphatase 71 U/L (38-126); Anion Gap 1 mmol/L; Blood Urea Nitrogen 18 mg/dL (7-17); Calcium 9.6 mg/dL (8.4-10.2); Carbon Dioxide 37 mmol/L (22-30); Chloride 95 mmol/L (98-107); Glucose 97 mg/dL (74-99); Non-African American GFR(CKD) 85 (>60 ml/min/1.73 sqM); Sodium 133 mmol/L (137-145); Total Bilirubin 0.5 mg/dL (0.2-1.3); Total Protein 6.7 g/dL (6.3-8.2)
[2020-08-04] MEDS: PANTOPRAZOLE 40 MG TABLET PO SCH (06:48)
[2020-08-04 08:29] VITALS: RESP 16
--- NOTE | 2020-08-04 09:43 | P.PN ---
Subjective Progress Note Date: 08/04/20 Nicci August, is a 50-year-old female who presented to [facility] emergency room with a chief complaint of chest pain, patient describes a pressure sensation in the left side of her chest on and off for the last 3 days, exacerbated by physical activity or stress. Patient was evaluated in the emergency room, her vital examination on presentation revealed a temperature of 97.6 pulse 65 respiration 20 blood pressure 119/69 pulse ox 93% on room air, her white blood count was 7.7 hemoglobin 15.4 platelet count 387 PT and PTT were within normal limits sodium 133 BUN elevated at 34 glucose slightly elevated at 1:15 calcium slightly elevated at 10.3 troponin level were normal. EKG reveals normal sinus rhythm with biatrial enlargement and right bundle branch block, chest x-ray revealed evidence of COPD otherwise no active cardiopulmonary disease. Urine toxicology screen was positive for amphetamine, methamphetamine, and cocaine. Patient admits to using methamphetamine and cocaine, but stated that that was several days prior to presentation. Patient has been having episodes of on and off of chest pain she was seen by Dr. Coburn as outpatient she underwent a stress test about 4 months ago, she was scheduled to have cardiac catheterization however she missed her appointment for that. Past medical history is significant for history of hypertension, history of depression, history of COPD, history of urinary incontinence. Patient smokes about 1 pack per day, she denies any alcohol use, she admitted to using cocaine and methamphetamine in the last 7 days. On 08/03/2020 patient was seen and examined on the telemetry floor she is alert and oriented 3 in no apparent distress she is still having episodes of chest pain she stated that she gets them when she gets upset otherwise she denies any symptoms there is no fever or chills no headache or dizziness no palpitation no cough no nausea or vomiting no abdominal pain no diarrhea no blood in the stools no burning with urination no frequency or urgency and no hematuria. Plan per cardiology is to proceed with cardiac catheterization tomorrow. On 08/04/2020 patient was seen and examined on the medical floor she is alert and oriented 3 in no apparent distress there is no fever or chills no headache or dizziness no chest pain no shortness of breath no cough no nausea or vomiting no abdominal pain no diarrhea no blood in the stools no burning with urination no frequency or urgency and no hematuria she is scheduled for cardiac catheterization today. Objective - Vital Signs Vital signs: Vital Signs Temp 97.6 F 08/04/20 08:27 Pulse 70 08/04/20 08:27 Resp 16 08/04/20 08:27 BP 114/70 08/04/20 08:27 Pulse Ox 96 08/04/20 08:27 Intake & Output 08/03/20 08/04/20 08/04/20 18:59 06:59 18:59 Intake Total 1110 Balance 1110 Intake: Oral 1110 Other: Voiding Method Toilet Toilet Toilet # Voids 2 2 - Exam In general patient is alert and oriented 3 in no distress HEENT head normocephalic and atraumatic Neck is supple no JVD no goiter no lymphadenopathy Chest exam reveals a few scattered rhonchi no wheezing Cardiac exam reveals regular heart sounds no gallops no murmurs Abdomen is soft nontender no organomegaly with normal bowel sounds Extremity exam reveals no edema no cyanosis or clubbing Neurological examination reveals no gross focal deficit - Labs CBC & Chem 7: 08/04/20 05:43 08/04/20 05:43 Labs: Abnormal Lab Results - Last 24 Hours (Table) 08/04/20 Range/Units 05:43 Sodium 133 L (137-145) mmol/L Chloride 95 L (98-107) mmol/L Carbon Dioxide 37 H (22-30) mmol/L BUN 18 H (7-17) mg/dL Assessment and Plan Plan: 1. Episodes of chest pain 2. Underlying history of hypertension 3. Tobacco abuse. 4. Underlying history of drug use including methamphetamine and cocaine 5. Poor compliance with medical advice patient was scheduled to have cardiac catheterization as outpatient however she missed her appointment. 6. Underlying history of COPD At this time patient is admitted to observation unit with telemetry Serial troponin levels are negative Cardiology consultation was requested, plan is to proceed with cardiac catheterization tomorrow Proton X added to her regimen Patient was counseled in length in regards to drug use and tobacco abuse Will follow closely
[2020-08-04] MEDS ORDERED: MIDAZOLAM 2 MG/2 ML VIAL IVP ONE (10:31)
[2020-08-04] MEDS ORDERED: LIDOCAINE 1% INJ 10MG/ML (20 ML MDV) SQ ONE (10:31)
[2020-08-04] MEDS ORDERED: IV FLUID CONTINUATION 700 ML IV ONE (10:35)
[2020-08-04] MEDS ORDERED: VERAPAMIL SYRINGE (5 MG/10 ML) INTRAARTER ONE ×2 (10:35→10:40)
[2020-08-04] MEDS ORDERED: HEPARIN SODIUM 1,000 UN/ML (10ML VL) IV ONE (10:35)
[2020-08-04] MEDS ORDERED: IOPAMIDOL-370 125ML BTL INJ ONE (10:40)
[2020-08-04] MEDS ORDERED: RX INFO: IV CONTRAST WAS GIVEN 1 EACH MISC MISCELLANE PRN (10:48)
[2020-08-04] MEDS ORDERED: SODIUM CHLORIDE 0.9% 1,000 ML IV SCH (11:00)
[2020-08-04] MEDS: ENOXAPARIN 40 MG/0.4 ML SYRINGE SQ SCH (11:07)
--- NOTE | 2020-08-04 12:30 | CC ---
CARDIAC CATHETERIZATION REPORT DATE OF SERVICE: 08/04/2020 PERFORMING PHYSICIAN: Stewart Dutton MD. PROCEDURE PERFORMED: 1. Selective right and left coronary angiogram. 2. Left heart catheterization. INDICATION: This is a 50-year-old female patient with history of drug abuse including cocaine, presented to the hospital with chest discomfort and continues to have ongoing chest discomfort. She was seen in the office recently because she was experiencing chest discomfort and she was scheduled to undergo a heart catheterization as an outpatient. APPROACH: Right right radial artery. COMPLICATION: None. LEVEL OF SEDATION: Moderate with sedation length of 10 minutes. PROCEDURE DESCRIPTION: After obtaining an informed consent, the patient was brought to the cardiac medical lab tech instructor. The right radial artery was cannulated using micropuncture technique, the micropuncture wire passed easily, then I placed a 6-Setswana sheath in the right radial artery. I did perform selective right and left coronary angiogram using JR4 and JL3.5 catheters. Left heart catheterization was performed using the JR4 catheter which crossed the aortic valve, then I did pullback across the valve. Please note that the patient was given 4000 units of heparin at the beginning of the procedure and before passing any catheter across the sheath. SELECTIVE CORONARY ANGIOGRAM: 1. The right coronary artery is a large caliber vessel. It is a dominant vessel and appeared to be angiographically normal. 2. The left main is angiographically normal. It bifurcates into left circumflex and left anterior descending artery. 3. The left circumflex is a moderate caliber vessel. It is a nondominant vessel, appeared to be angiographically normal. 4. The LAD is a large caliber vessel as well. The LAD is angiographically normal. In the midportion, it gives rise into a diagonal branch which seems to be angiographically normal. 5. HEMODYNAMICS: The LVEDP was 4 mmHg without significant gradient across aortic valve. CONCLUSION: 1. Normal coronary angiogram. 2. Normal LVEDP. Postprocedure management is medical treatment. MMODL / IJN: [id number] /
[2020-08-04 15:14] VITALS: BP 100/58; PULSE 70; TEMP 97.8
[2020-08-05] MEDS ORDERED: ASPIRIN 81 MG PO SCH (09:00)
== END 2020-08-04 16:36 | disposition home or self-care (01) | DRG 287 ==
LOC: EC 18:06 → 3NCARDOBS 20:18 → OBSVTOIN 08-04 07:46
PROVIDERS: ADMIT Internal Medicine; ATTEND Internal Medicine
PROC: B2111ZZ Fluoroscopy of Multiple Coronary Arteries using Low Osmolar Contrast (ICD-10-PCS; principal; 2020-08-04 07:30)
PROC: 4A023N7 Measurement of Cardiac Sampling and Pressure, Left Heart, Percutaneous Approach (ICD-10-PCS; principal; 2020-08-04 07:30)
DX: R07.9 Chest pain, unspecified (principal); I11.9 Hypertensive heart disease without heart failure; F41.9 Anxiety disorder, unspecified; R11.0 Nausea; F32.9 Major depressive disorder, single episode, unspecified; M19.90 Unspecified osteoarthritis, unspecified site; R32 Unspecified urinary incontinence; F17.210 Nicotine dependence, cigarettes, uncomplicated; I45.10 Unspecified right bundle-branch block; J44.9 Chronic obstructive pulmonary disease, unspecified; Z79.82 Long term (current) use of aspirin; Z79.899 Other long term (current) drug therapy; Z86.19 Personal history of other infectious and parasitic diseases; Z98.890 Other specified postprocedural states; Z87.42 Personal history of other diseases of the female genital tract; Z86.69 Personal history of other diseases of the nervous system and sense organs; Z91.19 Patient's noncompliance with other medical treatment and regimen; Z80.0 Family history of malignant neoplasm of digestive organs; Z82.49 Family history of ischemic heart disease and other diseases of the circulatory system; Z84.89 Family history of other specified conditions
CPT/HCPCS: 36415; 71046; 80053; 80306; 83735; 84484; 85025; 85610; 85730; 93005; 93306; 93458; 94760; 99285

== ENCOUNTER 2021-08-15 17:59 | Emergency (ER) | payer OTHER ==
[2021-08-15 19:18] VITALS: TEMP 98.4
[2021-08-15] MEDS ORDERED: HYDROcodone/APAP 5-325MG 1 EACH TAB PO STA (19:34)
--- NOTE | 2021-08-15 19:37 | ED ---
General Adult HPI - General Chief complaint: Extremity Problem,Nontraumatic Stated complaint: Pain in rt breast Time Seen by Provider: 08/15/21 19:21 Source: patient, RN notes reviewed, old records reviewed Mode of arrival: ambulatory - History of Present Illness Initial comments: 51-year-old female, presents to the emergency room alert and oriented 4, with complaints of right breast pain for one week. Patient has a scheduled mammogram on Tuesday. She states that she thinks the pain is too bad and needs the ultrasound today. She has not had any Tylenol or Motrin today. She denies any nipple discharge. She denies any nausea vomiting diarrhea or fevers. She is pack-a-day smoker. She does have a history of COPD and osteoarthritis. -: week(s) (1) Location: right (breast) Radiation: non-radiation Severity scale (1-10): 9 Quality: constant Consistency: constant Improves with: none Worsens with: none Associated Symptoms: denies other symptoms Treatments Prior to Arrival: none - Related Data Home Medications Medication Instructions Recorded Confirmed Escitalopram [Lexapro] 10 mg PO HS 06/11/20 08/01/20 Aspirin EC [Ecotrin Low Dose] 81 mg PO DAILY 08/01/20 08/01/20 Metoprolol Succinate [Toprol XL] 25 mg PO HS 08/01/20 08/01/20 Oxybutynin Chloride [Ditropan] 5 mg PO HS 08/01/20 08/01/20 Previous Rx's Medication Instructions Recorded Nicotine 21Mg/24Hr Patch [Habitrol] 1 patch TRANSDERM DAILY patch 08/04/20 Ibuprofen [Motrin] 400 mg PO Q8HR PRN #30 tab 08/15/21 Allergies Allergy/AdvReac Type Severity Reaction Status Date / Time No Known Allergies Allergy Verified 08/15/21 19:17 Review of Systems ROS Statement: Those systems with pertinent positive or pertinent negative responses have been documented in the HPI. ROS Other: All systems not noted in ROS Statement are negative. Past Medical History Past Medical History: COPD, Osteoarthritis (OA) Additional Past Medical History / Comment(s): heart condition-she is uncertain of the exact diagnosis. 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 Large benign ovarian tumor previously removed. History of Any Multi-Drug Resistant Organisms: None Reported Past Surgical History: Appendectomy Additional Past Surgical History / Comment(s): ovarian removal r/t benign tumor, 2 etopic preg. eye sx for strabismus Past Anesthesia/Blood Transfusion Reactions: No Reported Reaction Past Psychological History: No Psychological Hx Reported Smoking Status: Current every day smoker Past Alcohol Use History: None Reported Past Drug Use History: None Reported, Cocaine - Past Family History Mother Family Medical History: Cancer Additional Family Medical History / Comment(s): colon cancer. Father Family Medical History: Myocardial Infarction (CT) Additional Family Medical History / Comment(s): cerebral palsy. General Exam General appearance: alert, in no apparent distress Head exam: Present: atraumatic, normocephalic, normal inspection Eye exam: Present: normal appearance, EOMI ENT exam: Present: normal exam, normal oropharynx, mucous membranes moist, other (endentulous) Neck exam: Present: normal inspection, full ROM. Absent: tenderness, meningismus, lymphadenopathy, thyromegaly Respiratory exam: Present: decreased breath sounds (Poor inspiratory effort related to pain). Absent: respiratory distress, wheezes, rales, rhonchi, str idor, accessory muscle use Cardiovascular Exam: Present: regular rate, normal rhythm, normal heart sounds. Absent: systolic murmur, diastolic murmur, rubs, gallop, clicks GI/Abdominal exam: Present: soft, normal bowel sounds. Absent: distended, tenderness, guarding, rebound, rigid Extremities exam: Present: normal inspection, full ROM, normal capillary refill. Absent: tenderness, pedal edema, joint swelling, calf tenderness Back exam: Present: normal inspection, full ROM. Absent: tenderness, CVA tenderness (R), CVA tenderness (L), paraspinal tenderness, vertebral tenderness, rash noted Neurological exam: Present: alert, oriented X3 Psychiatric exam: Present: anxious Skin exam: Present: warm, dry, intact, normal color. Absent: rash Course Vital Signs 08/15/21 19:14 Temperature 98.4 F Pulse Rate 92 Respiratory 19 Rate Blood Pressure 120/68 O2 Sat by Pulse 98 Oximetry Medical Decision Making - Medical Decision Making Patient presents with right breast pain, denies fevers. Patient states that she sees Dr. Russell and is supposed to have mammograms every 6 months but she has not had one in 2 years. She does have an appointment scheduled on August 17 for a mammogram. I did discuss this case with Dr Cadena who recommended to have u/s in the ER. Ultrasound of the right breast shows an oval-shaped hypoechoic area with benign features. This area measures 9 x 3 x 6 mm with sharp margins. There is no evidence of erythema. Patient instructed to take Tylenol and/or Motrin as needed for pain. She is also directed to keep her appointment for her mammogram scheduled August 17. Patient was requesting medication to help her sleep at night. I did advise her to take Benadryl, Unisom or melatonin. Return to the emergency room with any new or worsening symptoms including nipple discharge, increased pain or fevers. Disposition Clinical Impression: Breast pain, right Clinical Impression: (Ruled Out): Breast pain Disposition: HOME SELF-CARE Condition: Good Additional Instructions: Ultrasound of your right breast shows a solid oval cystic mass that has benign features. Please follow-up with your primary care doctor next week. Keep your appointment for a mammogram scheduled August 17. You can use Tylenol and/or Motrin for pain. Warm compresses may also help. If you are looking for medications to help you sleep, you can use [id number] melatonin or Unisom or Benadryl. Return to the emergency room with any new or worsening symptoms. Prescriptions: Ibuprofen [Motrin] 400 mg PO Q8HR PRN #30 tab PRN Reason: Pain Is patient prescribed a controlled substance at d/c from ED?: No Referrals: Hamzah Mac MD [Primary Care Provider] - 1-2 days Time of Disposition: 21:18
--- NOTE | 2021-08-15 20:50 | USB ---
Right breast sonogram History right breast pain. Comparison none. FINDINGS: There is oval-shaped solid hypoechoic area that measures 9 x 3 x 6 mm. Margins are sharp. This is wid er than it is tall and has benign features. No other solid or cystic mass identified. IMPRESSION: Oval-shaped hypoechoic area has benign features. Category probably benign.
[2021-08-15 21:51] VITALS: BP 114/76; PULSE 85; RESP 18
== END 2021-08-15 21:50 | disposition home or self-care (01) ==
LOC: EC 17:59
DX: N64.4 Mastodynia (principal); J44.9 Chronic obstructive pulmonary disease, unspecified; M19.90 Unspecified osteoarthritis, unspecified site; F17.200 Nicotine dependence, unspecified, uncomplicated; Z79.82 Long term (current) use of aspirin; Z90.49 Acquired absence of other specified parts of digestive tract; Z86.018 Personal history of other benign neoplasm
CPT/HCPCS: 99283

== ENCOUNTER → 2021-08-17 | Outpatient (CLI) | payer OTHER ==
--- NOTE | 2021-08-17 09:27 | MM ---
Reason for exam: additional evaluation requested from prior study. Last mammogram was performed 6 years ago. History: Patient is postmenopausal. Physical Findings: Nurse Summary: 1cm nodule in the right breast at 5 o'clock (nurse db). MG Diagnostic Mammo w CAD PILO Bilateral CC and MLO view(s) were taken. Prior study comparison: August 15, 2021, right breast US breast limited RT. August 20, 2015, bilateral MG 3d diag mammo w/cad PILO. February 03, 2015, bilateral MG diagnostic mammo w CAD PILO. The breast tissue is heterogeneously dense. This may lower the sensitivity of mammography. These results were verbally communicated with the patient and result sheet given to the patient on 08/17/21. ASSESSMENT: Incomplete: need additional imaging evaluation, BI-RAD 0 RECOMMENDATION: Ultrasound of the right breast.
--- NOTE | 2021-08-17 09:29 | USB ---
Reason for exam: additional evaluation requested from abnormal screening. History: Patient is postmenopausal. US Breast Limited RT Right limited breast ultrasound including focal area of concern, retroareolar and axilla demonstrates a 3 x 2 x 3mm oval, lobular, cystic lesion at 11 o'clock. These results were verbally communicated with the patient and result sheet given to the patient on 08/17/21. ASSESSMENT: Probably benign, BI-RAD 3 RECOMMENDATION: Follow-up diagnostic mammogram and ultrasound of the right breast in 6 months. Manage patient on a clinical basis.
== END | disposition home or self-care (01) ==
LOC: RADMAMWWP 06:58
PROVIDERS: ATTEND Obstetrics & Gynecology
DX: N64.89 Other specified disorders of breast (principal); Z78.0 Asymptomatic menopausal state
CPT/HCPCS: 77066

== ENCOUNTER → 2022-08-18 | Outpatient (CLI) | payer OTHER ==
--- NOTE | 2022-08-18 14:36 | MM ---
Reason for Exam: Follow-up at short interval from prior study. Last screening mammogram was performed 12 month(s) ago. Patient History: Menarche at age 15. First Full-Term at age 18. Right ovary removed at age 16. Postmenopausal. Risk Values: Katharina 5 year model risk: 0.9%. NCI Lifetime model risk: 6.9%. Prior Study Comparison: 02/03/2015 Bilateral Diagnostic Mammogram, [facility]. 08/20/2015 Bilateral Diagnostic Mammogram, [facility]. 08/17/2021 Bilateral Diagnostic Mammogram, [facility]. Tissue Density: The breast tissue is extremely dense which could obscure a lesion on mammography. Findings: Analyzed By CAD. No suspicious group of microcalcifications in either breast. Overall Assessment: Incomplete: need additional imaging evaluation, BI-RAD 0 Management: Diagnostic Breast Ultrasound of the right breast. Palpable abnormality right breast. Electronically signed and approved by: Chalo Cornell M.D.
--- NOTE | 2022-08-18 14:54 | USB ---
Reason for Exam: Follow-up at short interval from prior study. Patient History: Menarche at age 15. First Full-Term at age 18. Right ovary removed at age 16. Postmenopausal. Risk Values: Katharina 5 year model risk: 0.9%. NCI Lifetime model risk: 6.9%. Technique: Method: Whole Breast Handheld. Prior Study Comparison: 02/03/2015 Bilateral Diagnostic Mammogram, [facility]. 08/20/2015 Bilateral Diagnostic Mammogram, [facility]. 08/17/2021 Bilateral Diagnostic Mammogram, [facility]. Findings: The whole breast of the right breast, the axilla of the right breast and the retroareolar of the right breast were scanned. A complete US of all four quadrants of the breast and retro-areolar region were reviewed. No solid or cystic masses are identified on images obtained. Overall Assessment: Negative, BI-RAD 1 Management: Screening Mammogram of both breasts in 1 year. Managed clinically palpable abnormality. Return to routine follow-up. Results were given to the patient verbally at the time of exam. Electronically signed and approved by: Chalo Cornell M.D.
== END | disposition home or self-care (01) ==
LOC: RADMAMWWP 14:13
PROVIDERS: ATTEND Internal Medicine
DX: N63.10 Unspecified lump in the right breast, unspecified quadrant (principal); R92.8 Other abnormal and inconclusive findings on diagnostic imaging of breast; Z78.0 Asymptomatic menopausal state
CPT/HCPCS: 77066

== ENCOUNTER → 2024-10-15 | Outpatient (CLI) | payer OTHER ==
[2024-10-15 08:11] LABS: INR 0.9 (<1.2); Partial Thromboplastin Time 27.5 sec (22.0-30.0); Prothrombin Time 10.1 sec (10.0-12.5)
[2024-10-15 10:24] LABS: Basophils # (A) 0.03 X 10*3/uL (0.00-0.10); Basophils % (A) 0.5 %; Eosinophils # (A) 0.12 X 10*3/uL (0.04-0.35); Eosinophils % (A) 2.2 %; HCT 40.4 % (37.2-46.3); HGB 12.9 g/dL (12.0-15.0); Lymphocytes # (A) 1.82 X 10*3/uL (0.90-5.00); Lymphocytes % (A) 32.7 %; MCHC 31.9 g/dL (32.0-37.0); MCV 87.6 FL (80.0-97.0); Mean Platelet Volume 9.3 FL (9.5-12.2); Monocytes # (A) 0.57 X 10*3/uL (0.20-1.00); Monocytes % (A) 10.2 %; NRBC Per 100 WBC 0 X 10*3/uL (0.00-0.01); Neutrophils # (A) 3.02 X 10*3/uL (1.80-7.70); Neutrophils % (A) 54.2 %; Platelet Count 410 X 10*3/uL (140-440); RBC 4.61 X 10*6/uL (4.10-5.20); WBC 5.57 X 10*3/uL (4.50-10.00)
[2024-10-15 10:30] LABS: Glucose 72 mg/dL (70-110)
[2024-10-15 10:31] LABS: Blood Urea Nitrogen 10.6 mg/dL (9.0-27.0); Carbon Dioxide 27.3 mmol/L (21.6-31.8); Chloride 103 mmol/L (96-109); Potassium 4.1 mmol/L (3.5-5.5); Sodium 140 mmol/L (135-145)
[2024-10-15 15:50] LABS: Appearance,Urine Turbid (Clear); Bilirubin,Urine Negative (Negative); Blood,Urine Trace (Negative); Color,Urine Yellow (Yellow); Ketones,Urine Negative (Negative); Nitrite,Urine Negative (Negative); PH, Urine 5.5; Specific Gravity,Urine 1.022 (1.001-1.030)
[2024-10-15 16:14] LABS: Bacteria,Urine 2+ (None Seen); Calcium Oxalate Crystals,Urine Present (None Seen)
== END | disposition home or self-care (01) ==
LOC: LABPAT 10-13 11:12
PROVIDERS: ATTEND Thoracic Surgery (Cardiothoracic Vascular Surgery)
DX: Z01.812 Encounter for preprocedural laboratory examination (principal); R58 Hemorrhage, not elsewhere classified
CPT/HCPCS: 80051; 81001; 82565; 82947; 84520; 85025; 85610; 85730; 86850; 86900; 86901

== ENCOUNTER 2024-10-25 05:37 | Inpatient (IN) | payer OTHER ==
[2024-10-25] MEDS ORDERED: LIDOCAINE 1% (10MG/ML) FOR IV START INTRADERMA PRN (06:00)
[2024-10-25 06:34] LABS: Glucose,Whole Blood 96 mg/dL (70-110)
[2024-10-25] MEDS: LACTATED RINGERS 1,000 ML IV SCH (06:35)
[2024-10-25] MEDS: ONDANSETRON 4 MG/2 ML VIAL IVP ONE (06:35)
[2024-10-25] MEDS: DEXAMETHASONE SOD PHOSPHATE 4 MG/ML 1 ML VIAL IV ONE (06:35)
[2024-10-25] MEDS: IV FLUID CONTINUATION 1,000 ML IV ONE ×4 (06:48→13:39)
[2024-10-25] MEDS: MIDAZOLAM 2 MG/2 ML VIAL IV ONE (06:50)
[2024-10-25] MEDS ORDERED: droPERidol 5 MG/2 ML VIAL IVP PRN (07:00)
[2024-10-25] MEDS: IPRATROPIUM-ALBUTEROL 3 ML NEB INHALATION STA (07:00)
[2024-10-25] MEDS ORDERED: DEXAMETHASONE SOD PHOSPHATE 4 MG/ML 1 ML VIAL ONE (07:29)
[2024-10-25] MEDS ORDERED: fentaNYL (PF) 50 MCG/ML 2 ML AMP ONE (07:29)
[2024-10-25] MEDS ORDERED: PROPOFOL 10 MG/ML 20 ML VIAL IV ONE (07:29)
[2024-10-25] MEDS ORDERED: LIDOCAINE 1% INJ 10MG/ML (20 ML MDV) ONE (07:29)
[2024-10-25] MEDS ORDERED: NEOSTIGMINE 1 MG/ML 10 ML VIAL ONE (07:29)
[2024-10-25] MEDS ORDERED: MIDAZOLAM 2 MG/2 ML VIAL ONE (07:29)
[2024-10-25] MEDS ORDERED: ACETAMINOPHEN IV (For NPO) 1,000 MG/100 ML VIAL ONE (07:29)
[2024-10-25] MEDS ORDERED: KETAMINE HCL IN 0.9 % NACL 50 MG/5 ML SYRINGE ONE (07:29)
[2024-10-25] MEDS ORDERED: SUCCINYLCHOLINE CHLORIDE 200 MG/10 ML VIAL IV ONE (07:29)
[2024-10-25] MEDS ORDERED: GLYCOPYRROLATE 0.2 MG/ML 2 ML VIAL ONE (07:29)
[2024-10-25] MEDS ORDERED: ROPIVACAINE 5 MG/ML 30 ML VIAL ONE (07:29)
[2024-10-25] MEDS ORDERED: SODIUM CHLORIDE 0.9% (PF) 10 ML VIAL ONE (07:29)
[2024-10-25] MEDS ORDERED: ROCURONIUM 10 MG/ML (5 ML VIAL) IV ONE (07:29)
[2024-10-25] MEDS ORDERED: PHENYLEPHRINE 10 MG/ML VIAL ONE (07:29)
[2024-10-25] MEDS: BUPIVACAINE (PF) 0.5% 30 ML VIAL SQ ONE (08:16)
[2024-10-25] MEDS: HYDROmorphone 0.5 MG/0.5 ML SYRINGE IVP PRN (11:01)
--- NOTE | 2024-10-25 11:07 | P.OP ---
Date of Procedure: 10/25/24 Preoperative Diagnosis: Left upper lobe mass Postoperative Diagnosis: Same, non-small cell carcinoma of lung Procedure(s) Performed: Robotic assisted thoracoscopic left upper lobectomy with mediastinal lymph node dissection Anesthesia: BERTA Surgeon: Tyrel Llanos Senior Policy Advisor #1: Amol Michelle Estimated Blood Loss (ml): 20 IV fluids (ml): 1,000 Urine output (ml): 500 Pathology: other (Left upper lobe sent for frozen section of primary tumor which was positive for non-small cell carcinoma and frozen section of bronchial margin which was negative; lymph node stations L5, L6, level 7, L8, L9, L10, L11 all for permanent section) Condition: stable Disposition: PACU Indications for Procedure: 54-year-old female smoker with newly discovered left upper lobe near apical mass consistent with lung carcinoma. There was no adenopathy by CT scan. PET scan showed marked uptake in the mass with no evidence of metastatic disease. She was referred by pulmonary medicine for lobectomy. Pulmonary function tests were good. She was cleared by cardiology for lung resection. Elective procedure was scheduled. Operative Findings: Fissures were partially complete. There were scattered anthracotic lymphadenopathy throughout. Mass was approximately 3 cm in the left upper lobe apex without involvement of the visceral pleura grossly. There were areas of blebs noted both in the upper and lower lobe, consistent with emphysema. On completion of the lobectomy, there was no evidence of leak from the bronchial stump. Description of Procedure: Patient was brought to the operating room and placed supine on the operating table. General anesthesia was induced and a double-lumen endotracheal tube placed. This was positioned with fiberoptic bronchoscopy. No endobronchial lesions were noted. Tube was secured in place and the patient turned in the right lateral decubitus position and appropriately positioned for robotic lobectomy. Left chest was sterilely prepped and draped. Initial incision was made in the eighth interspace in the anterior axillary line. 8 mm robotic port was placed here on single lung ventilation. After confirming presence in the pleural space, CO2 insufflation was begun. 2 12 mm ports were placed anterior and posterior to this initial port and a second 8 mm port was placed posteriorly at the level of the superior segment of the left lower lobe. Working port was placed anteriorly at the level of the diaphragm. The robot was docked. Dissection was begun in the fissure posteriorly and we were able to expose the pulmonary artery through the fissure. We were able to expose the upper lobe posterior branch and lingular branch of the pulmonary artery. These were individually encircled and ligated and divided with separate firings of a robotic vascular stapler. Brief dissection was carried out to mobilize the pulmonary artery off the upper lobe bronchus. Dissection was now carried posteriorly and the inferior pulmonary ligament was taken down with electrocautery. L8 and L9 lymph nodes were resected and sent for permanent section. Dissection was carried posterior to the inferior pulmonary vein and then deep into the mediastinum and the level 7 nodes were resected. Dissection was carried up on the mainstem bronchus and the L10 lymph nodes were resected. Dissection was carried further superiorly and the L6 lymph nodes were resected. We now moved anteriorly and opened the pleura over the superior pulmonary vein. This was encircled and ligated and divided with a robotic vascular stapler. We are now able to complete the fissure anteriorly between the lingula and lower lobe with a single firing of a robotic blue stapler. We now had good exposure of the upper lobe bronchus. Lymph node in the kenisha between the upper and lower lobe was resected and sent as L11 lymph node. We encircled the upper lobe bronchus and ligated and divided it with a robotic green stapler. Dissection was now carried onto the pulmonary artery superiorly in the truncus anteriosis was dissected out, ligated and divided with the robotic vascular stapler. L5 lymph nodes were resected. Lobectomy specimen was placed in an Endo Catch bag and retracted inferiorly. Good hemostasis was verified throughout. The robot was undocked and the working port incision was enlarged in the left upper lobe was removed in the Endo Catch bag and sent for frozen section of the primary tumor in the bronchial margin. Chest was irrigated with warm water and the lung inflated under water and no leak was noted from the bronchial stump. There was minimal leak from the dissection in the posterior fissure. Lung was read deflated and the pleural space was cleared with suction. 28 Moroccan chest tube was placed through separate stab incision anteriorly and positioned posterior apically and secured with 0 Ethibond suture. It was connected to a chest drainage unit. The lung was now reinflated under thoracoscopic visualization. The patient was maintained on 2 lung ventilation. Thoracoscope was removed and the incisions closed with layers of Vicryl suture. Skin glue and dry sterile dressings were applied. Drapes were left on until the frozen section returned with negative bronchial margin. Patient was turned back supine extubated and transferred to recovery in stable condition.
--- NOTE | 2024-10-25 12:22 | XR ---
EXAMINATION TYPE: XR chest 1V portable DATE OF EXAM: 10/25/2024 11:39 AM COMPARISON: 08/01/2020, PET/CT 08/13/2024 CLINICAL INDICATION: Female, 54 years old with history of post left upper lobectomy, , FINDINGS: Left apically directed chest tube is present. Suspect a trace 2 mm left apical pneumothorax. Heart mi ldly enlarged. Hyperinflation. There is focal consolidative opacity upper third left lung. No pleural effusion. IMPRESSION: 1. Mild cardiomegaly and COPD. Postsurgical changes. Left chest tube in place. 2. Trace 2 mm left apical pneumothorax. 3. Focal left upper lung consolidation. Query pulmonary contusion, residual mass, or pneumonia. Appro priate follow-up recommended. [facility], Workstation: [id number], 10/25/2024 12:20 PM
[2024-10-25] MEDS ORDERED: IPRATROPIUM-ALBUTEROL 3 ML NEB IH PRN (13:54)
[2024-10-25] MEDS ORDERED: bisacodyL 10 MG SUPP RECTAL PRN (13:54)
[2024-10-25] MEDS: KETOROLAC 15 MG/ML 1 ML VIAL IVP SCH (14:45)
[2024-10-25] MEDS: traMADol 50 MG TAB PO PRN (14:51)
[2024-10-25] MEDS: IPRATROPIUM-ALBUTEROL 3 ML NEB IH SCH (15:29)
[2024-10-25] MEDS: HEPARIN SODIUM,PORCINE 5,000 UNIT/ML 1 ML VIAL SQ SCH (16:19)
[2024-10-25] MEDS: DEXTROSE 5%-0.45% NACL 1,000 ML IV SCH (16:20)
[2024-10-25] MEDS: SCOPOLAMINE 1 MG/72 HR PATCH TRANSDERM ONE (16:30)
--- NOTE | 2024-10-25 19:13 | P.ANPRN ---
Procedure Note - Anesthesia - Nerve Block Performed Left Erector Spinae Single Time Out Performed: Yes Date of Procedure: 10/25/24 Procedure Start Time: Procedure Stop Time: Location of Patient: PreOp Indication: Acute Post-Operative Pain, Requested by Surgeon Sedation Type: Sedate with meaningful contact maintained Preparation: Sterile Prep Position: Supine Needle Types: Pajunk Needle Gauge: 21 Ultrasound used to visualize needle placement: Yes Ultrasound used to observe medication spread: Yes Blood Aspirated: No Pain Paresthesia on Injection Noted: No Resistance on Injection: Normal Image Stored and Saved: Yes Events: Uneventful and Well Tolerated (Ropivacaine 0.5% 15 cc plus normal saline 10 cc plus dexamethasone 4 mg given the left side at t 6)
--- NOTE | 2024-10-25 19:20 | P.ANPRN ---
Procedure Note - Anesthesia - Invasive Line Right Arterial Line Time Out Performed: Yes Date of Procedure: 10/25/24 Time of Procedure: 06:54 Location of Patient: PreOp Preparation: Sterile Prep, Sterile Dressing Arterial Line Location: Radial Ultrasound Used: No Purpose - Visualization and Identification of Vasculature: No Image Stored and Saved: No Narrative: Invasive line placement per sterile protocol utilized.
[2024-10-25] MEDS: SENNOSIDES-DOCUSATE SODIUM 1 EACH TAB PO SCH (20:11)
[2024-10-25] MEDS: METOPROLOL TARTRATE 12.5 MG TAB PO SCH (20:11)
[2024-10-26] MEDS: PANTOPRAZOLE 40 MG TABLET PO SCH (05:19)
[2024-10-26] MEDS: ONDANSETRON 4 MG/2 ML VIAL IVP PRN (05:19)
--- NOTE | 2024-10-26 05:26 | P.CNPUL ---
History of Present Illness Consult date: 10/26/24 Requesting physician: Tyrel Llanos Reason for consult: other (Status post left upper lobectomy) Chief complaint: Elected left upper lobectomy History of present illness: Patient is a 54-year-old female with past medical history significant for COPD, left upper lobe nodule. Left upper lung nodule originally noted back on low- dose lung screening CT. Follow-up PET scan from July 2024 demonstrating a bilobed mass with upper component measuring 11.5 x 20 mm and the lower component of the mass measuring 12 x 16 mm. Mean SUV of 8.4 for the upper portion and 5.6 for the lower portion. No evidence of metastatic disease noted. Patient was referred to cardiothoracic surgery. Patient was brought in yesterday for a robotic assisted thorascopic left upper lobectomy with mediastinal lymph node dissection. No perioperative complications reported. Patient was sent to the selective care unit following the procedure. Follow-up chest x-ray showing hyperinflation and flattening of the diaphragms consistent with COPD, with postsurgical changes of the left chest tube in place. Trace 2 mm left apical pneumothorax. And probably some postoperative atelectasis or contusion within the left upper lung. Current vital signs: Afebrile, heart rate 77 bpm, blood pressure 108/63 mmHg, nontachypneic, SpO2 98% on 2 L/min nasal cannula. Patient is currently lying in bed, has left chest tube in place to suction at -20 cm H2O, continues to have intermittent airleak. There is a total of 650 of serosanguineous output in the collection chamber. Her chief complaint at this time is some postsurgical left-sided back pain. Rated 8 out of 10. For analgesics, she is currently receiving Toradol 15 mg every 6 hours as well as Ultram as needed 4 times daily. She has not received a dose of tramadol since yesterday afternoon. Her incentive spirometer is on the bedside table, achieves around 750. Review of Systems Constitutional: Denies chills (Is), Denies fatigue, Denies fever, Denies poor appetite, Denies weight loss Ears, nose, mouth and throat: Denies headache, Denies nasal congestion, Denies nasal discharge, Denies neck lump, Denies post-nasal drip, Denies sinus pain, Denies sinus pressure, Denies sore throat Cardiovascular: Denies chest pain, Denies leg edema, Denies orthopnea, Denies palpitations, Denies paroxysmal nocturnal dyspnea, Denies syncope Respiratory: Reports pain on inspiration, Denies congestion, Denies cough, Denies cough with sputum, Denies dyspnea, Denies hemoptysis, Denies home oxygen, Denies respiratory infections, Denies wheezing Gastrointestinal: Reports nausea, Denies abdominal pain, Denies change in bowel habits, Denies diarrhea, Denies vomiting Genitourinary: Denies dysuria Musculoskeletal: Denies limitation of motion Integumentary: Denies rash Neurological: Denies seizures, Denies syncope Psychiatric: Denies anxiety, Denies depression Past Medical History Past Medical History: Coronary Artery Disease (CAD), Cancer, COPD, Hyperlipidemia, Osteoarthritis (OA) Additional Past Medical History / Comment(s): hx. of rapid heart rate @times, SOB w/exertion, new dx. lung cancer History of Any Multi-Drug Resistant Organisms: None Reported Past Surgical History: Appendectomy, Heart Catheterization Additional Past Surgical History / Comment(s): Benign ovarian tumor removed, ectopic X2, eye surgery for Strabismus, [facility] Past Anesthesia/Blood Transfusion Reactions: No Reported Reaction Additional Past Anesthesia/Blood Transfusion Reaction / Comment(s): no hx. of transfusions Smoking Status: Current every day smoker - Past Family History Mother Family Medical History: Cancer Additional Family Medical History / Comment(s): Colon cancer w/ mets. Father Family Medical History: Myocardial Infarction ([place]) Additional Family Medical History / Comment(s): Cerebral Palsy. Medications and Allergies Home Medications Medication Instructions Recorded Confirmed Type Aspirin EC [Ecotrin Low Dose] 81 mg PO DAILY PRN 08/01/20 10/25/24 History Albuterol Nebulized [Ventolin 2.5 mg INHALATION Q6H PRN 03/09/22 10/25/24 History Nebulized] Allergies Allergy/AdvReac Type Severity Reaction Status Date / Time No Known Allergies Allergy Verified 10/25/24 06:06 Physical Exam Vitals: Vital Signs Temp Pulse Pulse Pulse Resp BP BP 10/26/24 04:00 77 16 108/63 10/26/24 00:00 99 16 102/65 10/25/24 21:36 90 10/25/24 21:22 92 10/25/24 21:12 89 10/25/24 20:00 97.9 F 104 H 18 125/78 10/25/24 16:00 102 H 18 153/84 10/25/24 15:45 108 H 10/25/24 15:33 100 10/25/24 14:15 97.6 F 94 18 143/79 10/25/24 13:45 99 18 146/72 10/25/24 13:15 92 16 146/79 10/25/24 12:45 91 18 155/81 10/25/24 12:30 87 20 156/82 10/25/24 11:58 92 16 161/82 10/25/24 11:43 75 16 151/72 10/25/24 11:28 72 16 167/80 10/25/24 11:13 73 16 159/75 10/25/24 10:58 77 18 162/75 10/25/24 10:43 96.9 F L 73 18 10/25/24 07:30 78 18 119/58 10/25/24 06:14 98.7 F 77 18 117/68 BP Pulse Ox 10/26/24 04:00 98 10/26/24 00:00 99 10/25/24 21:36 10/25/24 21:22 10/25/24 21:12 10/25/24 20:00 100 10/25/24 16:00 99 10/25/24 15:45 10/25/24 15:33 10/25/24 14:15 91 L 10/25/24 13:45 98 10/25/24 13:15 97 10/25/24 12:45 98 10/25/24 12:30 98 10/25/24 11:58 99 10/25/24 11:43 97 10/25/24 11:28 181/77 96 10/25/24 11:13 174/84 98 10/25/24 10:58 178/87 98 10/25/24 10:43 166/81 98 10/25/24 07:30 96 10/25/24 06:14 95 Intake and Output 10/25/24 10/25/24 10/26/24 14:59 22:59 06:59 Intake Total 1900 Output Total 064 550 249 Balance 4436 -918 -467 Intake: IV 1900 Output: Chest Tube Drainage 150 280 Chest Tube Left 150 280 Urine 415 400 300 Pleural Fluid 200 Estimated Blood Loss 20 Other: Voiding Method Bedpan Bedside Commode Bedpan GENERAL EXAM: Alert, 54-year-old female, comfortable in no apparent distress. HEAD: Normocephalic and atraumatic EYES: Normal reaction of pupils, equal size. NOSE: Clear with pink turbinates. THROAT: No erythema or exudates. NECK: No masses, no JVD. CHEST: No chest wall deformity. Postsurgical dressing is clean, dry, intact. There is a left chest tube attached to atrium with -20 cm H2O, with intermittent airleak. 650 cc of serosanguineous output in collection chamber. LUNGS: Equal air entry with no crackles, wheeze, rhonchi or dullness. On 2 L/min nasal cannula. No conversational dyspnea or accessory muscle use.. CVS: S1 and S2 normal with no audible murmur, regular rhythm. No extra heart sounds ABDOMEN: No hepatosplenomegaly, active bowel sounds, no guarding or rigidity. SPINE: No scoliosis or deformity SKIN: No rashes CENTRAL NERVOUS SYSTEM: No focal deficits, tone is normal in all 4 extremities. EXTREMITIES: There is no peripheral edema, clubbing, or cyanosis. Peripheral pulses are intact. Results - Laboratory Findings CBC and BMP: 10/26/24 05:33 10/26/24 05:33 - Diagnostic Findings Chest x-ray: image reviewed Assessment and Plan Assessment: Status postoperative day #1 following left upper lobectomy, postoperative chest x-ray showing hyperinflation and flattening of the diaphragms consistent with COPD, with postsurgical changes of the left chest tube in place. Trace 2 mm l eft apical pneumothorax. Left upper chest postoperative atelectasis or contusion. History of left upper lobe lung nodule, previous PET scan done July 2024 demonstrating a bilobed mass with SUV uptake of 8.4 on the upper portion and 5.6 in the lower portion. No evidence of metastatic disease. Patient was referred to cardiothoracic surgery. Chronic obstructive pulmonary disease, with a preoperative FEV1 79% of predicted, inactive Current ongoing tobacco dependence, she is working on quitting, and smoked only 4 cigarettes last week History of hyperlipidemia Plan: Patient's medications, labs, postoperative chest x-ray reviewed Small residual 2 mm left apical pneumothorax noted. Left-sided chest tube remains in place, continues to have intermittent air leaking. Monitor chest tube output Repeat chest x-ray pending for this morning Pathology is pending Continue supplemental oxygen to maintain oxygen saturation of 92% or greater As needed analgesics ordered Encourage incentive spirometer Postoperative labs pending We will continue to follow. I have personally seen and examined the patient, performed the documentation and the assessment and plan as written. Number of minutes spent on the visit:20 This is a joint evaluation was done along with the nurse practitioner. This evaluation was done and more than 30 minutes. The patient had a bilobed left upper lobe mass, PET avid, highly suspicious for malignancy. The patient is known to have COPD with a baseline FEV1 of 79% of predicted. The patient was evaluated by cardiothoracic surgery on an outpatient basis and the patient was taken to the operating room yesterday and the patient underwent a left upper lob ectomy without any significant complications. The procedure was done with robotic assistance, thoracoscopic and the patient also had mediastinal lymph node dissection. Postop, the chest x-ray showed a tiny left apical pneumothorax. Left-sided chest tube is in place. Some limited atelectatic francois ges were seen in the left lung. Blood work performed postop is essentially within normal limits. Patient remains hemodynamically stable, currently on 2 L of oxygen by nasal cannula. There is an ongoing air leak that needs to be monitored. Output from the chest tube is to be monitored. The patient was provided status parameter. Pain control. DuoNeb nebulized treatments [id number] 4 times a day. Heparin subcu for DVT prophylaxis. Will continue to follow. Time with Patient: Greater than 30
[2024-10-26 05:47] LABS: Basophils % (A) 0 %; Eosinophils % (A) 0 %; HCT 30.6 % (34.0-46.0); HGB 10.3 gm/dL (11.4-16.0); Lymphocytes # (A) 1.5 k/uL (1.0-4.8); Lymphocytes % (A) 17 %; MCH 29.4 pg (25.0-35.0); MCHC 33.6 g/dL (31.0-37.0); MCV 87.3 fL (80.0-100.0); Mean Platelet Volume 7.6; Monocytes % (A) 12 %; Neutrophils % (A) 69 %; Platelet Count 310 k/uL (150-450); RBC 3.51 m/uL (3.80-5.40); WBC 8.6 k/uL (3.8-10.6)
[2024-10-26 06:02] LABS: African American GFR (CKD) >90 (>60 ml/min/1.73 sqM); Anion Gap 3 mmol/L; Blood Urea Nitrogen 13 mg/dL (7-17); Calcium 8.7 mg/dL (8.4-10.2); Carbon Dioxide 29 mmol/L (22-30); Chloride 102 mmol/L (98-107); Glucose 114 mg/dL (74-99); Non-African American GFR(CKD) >90 (>60 ml/min/1.73 sqM); Potassium 4.5 mmol/L (3.5-5.1); Sodium 134 mmol/L (137-145)
--- NOTE | 2024-10-26 08:32 | XR ---
EXAMINATION TYPE: XR chest 1V DATE OF EXAM: 10/26/2024 COMPARISON: 10/25/2024 CLINICAL INDICATION: Female, 54 years old with history of post left upper lobectomy; TECHNIQUE: Single frontal view of the chest is obtained. FINDINGS: Left-sided chest tube in place. No appreciable pneumothorax. Postoperative volume loss left hemithora x. Focal left upper lung opacity persists. Subcutaneous emphysema left chest wall. Hyperinflation. IMPRESSION: COPD with postsurgical volume loss left hemithorax and chest tube in place. No appreciab le pneumothorax. Focal opacity at the left upper lung persists. [facility], , 10/26/2024 8:30 AM
--- NOTE | 2024-10-26 09:02 | P.PN ---
Subjective Progress Note Date: 10/26/24 Principal diagnosis: Left upper lobe mass, non-small cell carcinoma of lung. Previous medical history of current tobacco dependence, COPD, hyperlipidemia, Mobitz type I heart block, osteoarthritis POD #1 robotic assisted thoracoscopic left upper lobectomy with mediastinal lymph node dissection The patient was seen and examined with Dr. Llanos this morning. She was laying in bed upon initial assessment, gotten out of bed to chair, then put herself back to bed when assessed with Dr. Llanos. We did discuss the need to stay out of bed, get up and walk around, and her increased risk for pneumonia if she continues to spend all day in bed. Currently on room air with oxygen saturation in the mid 90s, only able to achieve 750 mL on incentive spirometry. She states expected pain from chest tube site not well-controlled on current medication regimen, although she gets not taking all of her ordered pain medication. She is requesting Dilaudid. She does complain of nausea and refusing to eat. Left pleural chest tube present with intermittent airleak, placed to waterseal this morning. Chest x-ray, labs reviewed. No other new concerns. Objective - Vital Signs Vital signs: Vital Signs Temp 97.9 F 10/25/24 20:00 Pulse 77 10/26/24 04:00 Resp 16 10/26/24 04:00 BP 108/63 10/26/24 04:00 Pulse Ox 98 10/26/24 04:00 FiO2 Intake & Output 10/25/24 10/26/24 10/26/24 18:59 06:59 18:59 Intake Total 1900 Output Total 635 1430 Balance 1265 -1430 Weight 47.4 kg Intake: IV 1900 Output: Chest Tube Drainage 430 Chest Tube Left 430 Urine 415 1000 Pleural Fluid 200 Estimated Blood Loss 20 Other: Voiding Method Bedside Commode Bedpan - Exam CONSTITUTIONAL: Appears mostly comfortable, no acute distress RESPIRATORY: Lungs sounds diminished bilaterally. Respirations even, nonlabored. Currently on room air with oxygen saturation 96%. Able to achieve 750 mL on incentive spirometry. Weak cough. CARDIOVASCULAR: S1, S2 present. Regular rate and rhythm, sinus rhythm on telemetry. Palpable peripheral pulses bilaterally. No edema present. No calf pain or tenderness noted. SCDs present. GASTROINTESTINAL: Abdomen soft, nontender, nondistended. Hypoactive bowel sounds present 4 quadrants. Tolerating minimal oral intake. GENITOURINARY: Continues to void INTEGUMENTARY: Skin is warm and dry with evidence of good perfusion. Thoracic incision well approximated and covered with dry intact dressing. NEUROLOGIC: Cranial nerves II through XII intact MUSKULOSKELETAL: Able to move all extremities, strength equal bilaterally PSYCHIATRIC: Alert and oriented to person place and time, flat affect INVASIVE LINES AND TUBES: Left pleural chest tube present and placed to waterseal, intermittent airleak present, 280 mL serosanguineous drainage overnight, 700 mL since surgery - Allied health notes Allied health notes reviewed: nursing - Labs CBC & Chem 7: 10/26/24 05:33 10/26/24 05:33 Labs: Abnormal Lab Results - Last 24 Hours (Table) 10/26/24 10/26/24 Range/Units 05:33 05:33 RBC 3.51 L (3.80-5.40) m/uL Hgb 10.3 L (11.4-16.0) gm/dL Hct 30.6 L (34.0-46.0) % Sodium 134 L (137-145) mmol/L Glucose 114 H (74-99) mg/dL - Imaging and Cardiology Chest x-ray: report reviewed, image reviewed Assessment and Plan Assessment: Left upper lobe mass, non-small cell carcinoma of lung, status post robotic assisted thoracoscopic left upper lobectomy with mediastinal lymph node dissection History of current tobacco dependence COPD Hyperlipidemia Mobitz type I heart block Osteoarthritis Plan: Continue chest tube to waterseal, monitor for airleak resolution Increase activity, patient should be out of bed during the day, able to sleep in bed at night, needs to ambulate in the hallway Continue current medication regimen Pain control per current medication regimen, no IV Dilaudid Will monitor daily labs and x-rays Encourage incentive spirometry use Smoking cessation counseling and education provided and reinforced More recommendations to follow
[2024-10-26] MEDS: ASPIRIN 81 MG PO SCH (09:45)
--- NOTE | 2024-10-26 11:51 | P.CRDCN ---
History of Present Illness Consult date: 10/26/24 Consult reason: shortness of breath Chief complaint: s/p lobectomy History of present illness: History of present illness: Patient is a pleasant 54-year-old female with significant past medical history of COPD, tobacco abuse, lung mass, and Mobitz type I who presented for elective left upper lobectomy with cardiothoracic surgery. She follows with Dr. Coburn in the office. She has been doing well postoperatively. She is out of bed in the chair. She reports pain is 6 out of 10 mostly at her drain site. Her breathing feels stable and she is not on any oxygen. She did walk a short distance in the hallway however felt a little lightheaded with this. She has been having some nausea. No chest pain or pressure. Hemoglobin 10.3, creatinine 0.65. REVIEW OF SYSTEMS: No fever or chills. No cough or expectoration. Mild shortness of breath. No diaphoresis. Patient denies headache, dizziness, blurred vision, double vision. Patient denies any stomach discomfort. No nausea, vomiting. No hematochezia. No hematemesis. Denies any black stools or blood in his stools. Denies dysuria or hematuria. No muscle weakness or numbness. No chest pain or pressure. PHYSICAL EXAMINATION: This is a 54-year-old female in no apparent distress at the time of my examination. HEENT: Head is atraumatic, normocephalic. Pupils are equal, round. Sclerae anicteric. Conjunctivae are clear. Mucous membranes of the mouth are moist. Neck is supple. There is no jugular venous distention. No carotid bruit is heard. CHEST EXAMINATION: Lungs are clear to auscultation. No chest wall tenderness is noted on palpation or with deep breathing. Left chest tube. HEART EXAMINATION: Heart regular rate and rhythm. S1, S2 heard. No murmurs, gallops or rub. ABDOMEN: Soft, nontender. Bowel sounds are heard. No organomegaly noted. EXTREMITIES: 2+ peripheral pulses with no evidence of peripheral edema and no calf tenderness noted. NEUROLOGIC EXAMINATION: Patient is awake, alert and oriented x3. IMPRESSION AND PLAN: COPD Tobacco abuse Lung mass History of Mobitz type I Status post left upper lobectomy PLAN: She has been stable post op. Continue with current regimen. Further recommendations depending on clinical course. I am dictating on behalf of Dr. Jorge Simms's history/physical and assessment/plan. Past Medical History Past Medical History: Coronary Artery Disease (CAD), Cancer, COPD, Hyperlipidemia, Osteoarthritis (OA) Additional Past Medical History / Comment(s): hx. of rapid heart rate @times, SOB w/exertion, new dx. lung cancer History of Any Multi-Drug Resistant Organisms: None Reported Past Surgical History: Appendectomy, Heart Catheterization Additional Past Surgical History / Comment(s): Benign ovarian tumor removed, ectopic X2, eye surgery for Strabismus, recent colonoscopy @[facility] Past Anesthesia/Blood Transfusion Reactions: No Reported Reaction Additional Past Anesthesia/Blood Transfusion Reaction / Comment(s): no hx. of transfusions Smoking Status: Current every day smoker - Past Family History Mother Family Medical History: Cancer Additional Family Medical History / Comment(s): Colon cancer w/ mets. Father Family Medical History: Myocardial Infarction ([place]) Additional Family Medical History / Comment(s): Cerebral Palsy. Medications and Allergies Home Medications Medication Instructions Recorded Confirmed Type Aspirin EC [Ecotrin Low Dose] 81 mg PO DAILY PRN 08/01/20 10/25/24 History Albuterol Nebulized [Ventolin 2.5 mg INHALATION Q6H PRN 03/09/22 10/25/24 Hist ory Nebulized] Allergies Allergy/AdvReac Type Severity Reaction Status Date / Time No Known Allergies Allergy Verified 10/25/24 06:06 Physical Exam Vitals: Vital Signs Temp Pulse Pulse Resp BP BP Pulse Ox 10/26/24 04:00 77 16 108/63 98 10/26/24 00:00 99 16 102/65 99 10/25/24 21:36 90 10/25/24 21:22 92 10/25/24 21:12 89 10/25/24 20:00 97.9 F 104 H 18 125/78 100 10/25/24 16:00 102 H 18 153/84 99 10/25/24 15:45 108 H 10/25/24 15:33 100 10/25/24 14:15 97.6 F 94 18 143/79 91 L 10/25/24 13:45 99 18 146/72 98 10/25/24 13:15 92 16 146/79 97 10/25/24 12:45 91 18 155/81 98 10/25/24 12:30 87 20 156/82 98 10/25/24 11:58 92 16 161/82 99 10/25/24 11:43 75 16 151/72 97 10/25/24 11:28 72 16 167/80 181/77 96 10/25/24 11:13 73 16 159/75 174/84 98 10/25/24 10:58 77 18 162/75 178/87 98 10/25/24 10:43 96.9 F L 73 18 166/81 98 Intake and Output 10/25/24 10/26/24 10/26/24 22:59 06:59 14:59 Output Total 550 880 Balance -550 -880 Output: Chest Tube Drainage 150 280 Chest Tube Left 150 280 Urine 400 600 Other: Voiding Method Bedpan Bedside Commode Bedpan Weight 47.4 kg Results 10/26/24 05:33 10/26/24 05:33 CBC 10/26/24 Range/Units 05:33 WBC 8.6 (3.8-10.6) k/uL RBC 3.51 L (3.80-5.40) m/uL Hgb 10.3 L (11.4-16.0) gm/dL Hct 30.6 L (34.0-46.0) % Plt Count 310 (150-450) k/uL Comprehensive Metabolic Panel 10/26/24 Range/Units 05:33 Sodium 134 L (137-145) mmol/L Potassium 4.5 (3.5-5.1) mmol/L Chloride 102 (98-107) mmol/L Carbon Dioxide 29 (22-30) mmol/L BUN 13 (7-17) mg/dL Creatinine 0.65 (0.52-1.04) mg/dL Glucose 114 H (74-99) mg/dL Calcium 8.7 (8.4-10.2) mg/dL Current Medications Generic Name Dose Route Start Last Admin Trade Name Freq PRN Reason Stop Dose Admin Acetaminophen 650 mg 10/25/24 13:54 Acetaminophen Tab 325 Mg Tab PO Q4HR PRN Mild to Moderate Pain (1 - 6) Albuterol/Ipratropium 3 ml 10/25/24 13:54 Ipratropium-Albuterol 3 Ml Neb IH RT-Q1H PRN Shortness Of Breath Or Wheezing Albuterol/Ipratropium 3 ml 10/25/24 13:54 10/25/24 21:11 Ipratropium-Albuterol 3 Ml Neb IH 3 ml RT-QID CAMI Administration Aspirin 81 mg 10/26/24 09:00 Aspirin 81 Mg PO DAILY CAMI Bisacodyl 10 mg 10/25/24 13:54 Bisacodyl 10 Mg Supp RECTAL DAILY PRN Constipation Heparin Sodium (Porcine) 5,000 unit 10/25/24 16:00 10/25/24 23:53 Heparin Sodium,Porcine 5,000 Unit/Ml 1 Ml Vial SQ 5,000 unit Q8HR CAMI Administration Ketorolac Tromethamine 15 mg 10/25/24 14:00 10/26/24 02:01 Ketorolac 15 Mg/Ml 1 Ml Vial IVP 10/30/24 13:59 15 mg Q6H CAMI Administration Metoprolol Tartrate 12.5 mg 10/25/24 21:00 10/25/24 20:11 Metoprolol Tartrate 12.5 Mg Tab PO 12.5 mg BID ACMI Administration Ondansetron HCl 4 mg 10/25/24 13:54 10/26/24 05:19 Ondansetron 4 Mg/2 Ml Vial IVP 4 mg Q8HR PRN Administration Nausea And Vomiting Pantoprazole Sodium 40 mg 10/26/24 07:30 10/26/24 05:19 Pantoprazole 40 Mg Tablet PO 40 mg [id number] CAMI Administration Senna/Docusate Sodium 1 each 10/25/24 21:00 10/25/24 20:11 Sennosides-Docusate Sodium 1 Each Tab PO 1 each BID CAMI Administration Sodium Chloride 10 ml 10/25/24 18:00 10/25/24 21:27 Sodium Chloride 0.9% Flush 10 Ml Syringe IV Not Given BID CAMI Tramadol HCl 50 mg 10/25/24 13:54 10/26/24 05:19 Tramadol 50 Mg Tab PO 50 mg QID PRN Administration Severe Pain (Scale 7 to 10) Intake and Output 10/25/24 10/26/24 10/26/24 22:59 06:59 14:59 Output Total 550 880 Balance -550 -880 Output: Chest Tube Drainage 150 280 Chest Tube Left 150 280 Urine 400 600 Other: Voiding Method Bedpan Bedside Commode Bedpan Weight 47.4 kg 10/26/24 05:33 10/26/24 05:33
[2024-10-26] MEDS: ACETAMINOPHEN TAB 325 MG TAB PO PRN (11:57)
[2024-10-26] MEDS ORDERED: PROCHLORPERAZINE INJ 10 MG/2 ML VIAL IVP PRN (16:28)
[2024-10-26] MEDS: ACETAMINOPHEN IV (For NPO) 700 MG in EMPTY BAG 1 BAG IVPB SCH (18:08)
[2024-10-26 21:58] VITALS: RESP 16
[2024-10-27 07:01] LABS: HCT 28.1 % (34.0-46.0); HGB 9.6 gm/dL (11.4-16.0); MCH 29.7 pg (25.0-35.0); MCV 87.3 fL (80.0-100.0); Mean Platelet Volume 7.6; Platelet Count 333 k/uL (150-450); RBC 3.22 m/uL (3.80-5.40); RDW 13.3 % (11.5-15.5); WBC 8.9 k/uL (3.8-10.6)
[2024-10-27 07:18] LABS: African American GFR (CKD) >90 (>60 ml/min/1.73 sqM); Anion Gap 4 mmol/L; Blood Urea Nitrogen 15 mg/dL (7-17); Calcium 8.9 mg/dL (8.4-10.2); Carbon Dioxide 27 mmol/L (22-30); Chloride 102 mmol/L (98-107); Glucose 86 mg/dL (74-99); Non-African American GFR(CKD) >90 (>60 ml/min/1.73 sqM); Potassium 4.2 mmol/L (3.5-5.1); Sodium 133 mmol/L (137-145)
[2024-10-27] MEDS: METOCLOPRAMIDE 5 MG/ML 2 ML VIAL IVP STA (08:49)
--- NOTE | 2024-10-27 08:54 | P.PN ---
Subjective Progress Note Date: 10/27/24 Principal diagnosis: Left upper lobe mass, non-small cell carcinoma of lung. Previous medical history of current tobacco dependence, COPD, hyperlipidemia, Mobitz type I heart block, osteoarthritis POD #2 robotic assisted thoracoscopic left upper lobectomy with mediastinal lymph node dissection The patient was seen and examined sitting up in recliner this morning on the cardiac stepdown unit in no acute distress. Remains in sinus rhythm, hemodynami lay stable. Currently on room air with oxygen saturation in the mid 90s, able to achieve 1250 mL on incentive spirometry. Left pleural chest tube present to hospital for special care, 250 mL output last 24 hours, no airleak present this morning. Chest x-ray, labs reviewed. States postsurgical pain is controlled on current medication regimen, has had no narcotics since yesterday. States her nausea is gone although she has no appetite. She has been ambulatory in the hallway without difficulty. Discussed with Dr. Cummings. No other new concerns. Objective - Vital Signs Vital signs: Vital Signs Temp 98.1 F 10/26/24 20:00 Pulse 82 10/27/24 08:21 Resp 16 10/27/24 04:00 BP 97/58 10/27/24 04:00 Pulse Ox 95 10/27/24 04:00 FiO2 Intake & Output 10/26/24 10/27/24 10/27/24 18:59 06:59 18:59 Intake Total 780 Output Total 810 Balance -30 Weight 47.5 kg Intake: Oral 780 Output: Chest Tube Drainage 110 Chest Tube Left 110 Urine 700 Other: Voiding Method Toilet Toilet # Voids 2 - Exam CONSTITUTIONAL: Appears mostly comfortable, no acute distress RESPIRATORY: Lungs sounds diminished bilaterally. Respirations even, nonlabored. Currently on room air with oxygen saturation 95%. Able to achieve 1250 mL on incentive spirometry. Weak cough. CARDIOVASCULAR: S1, S2 present. Regular rate and rhythm, sinus rhythm on telemetry. Palpable peripheral pulses bilaterally. No edema present. No calf pain or tenderness noted. SCDs present. GASTROINTESTINAL: Abdomen soft, nontender, nondistended. Active bowel sounds present 4 quadrants. Tolerating minimal oral intake. Positive flatus GENITOURINARY: Continues to void INTEGUMENTARY: Skin is warm and dry with evidence of good perfusion. Thoracic incision well approximated and covered with dry intact dressing. NEUROLOGIC: Cranial nerves II through XII intact MUSKULOSKELETAL: Able to move all extremities, strength equal bilaterally PSYCHIATRIC: Alert and oriented to person place and time, flat affect INVASIVE LINES AND TUBES: Left pleural chest tube present to waterseal, no airleak present, 100 mL serosanguineous drainage overnight, 250 mL in the last 24 hours - Allied health notes Allied health notes reviewed: nursing - Labs CBC & Chem 7: 10/27/24 06:23 10/27/24 06:23 Labs: Abnormal Lab Results - Last 24 Hours (Table) 10/27/24 10/27/24 Range/Units 06:23 06:23 RBC 3.22 L (3.80-5.40) m/uL Hgb 9.6 L (11.4-16.0) gm/dL Hct 28.1 L (34.0-46.0) % Sodium 133 L (137-145) mmol/L - Imaging and Cardiology Chest x-ray: image reviewed Assessment and Plan Assessment: Left upper lobe mass, non-small cell carcinoma of lung, status post robotic assisted thoracoscopic left upper lobectomy with mediastinal lymph node dissection, frozen section positive for non-small cell carcinoma, final pathology pending History of current tobacco dependence COPD Hyperlipidemia Mobitz type I heart block Osteoarthritis Plan: Will discontinue chest tube Repeat chest x-ray in the morning, if stable will discharge to home Increase activity, patient should be out of bed during the day, able to sleep in bed at night, continue to ambulate in the hallway Continue current medication regimen Pain control per current medication regimen, no IV Dilaudid Encourage incentive spirometry use Smoking cessation counseling and education provided and reinforced More recommendations to follow
--- NOTE | 2024-10-27 10:15 | XR ---
EXAMINATION TYPE: XR chest 2V DATE OF EXAM: 10/27/2024 6:39 AM COMPARISON: 10/26/2024 CLINICAL INDICATION: Female, 54 years old with history of Post left upper lobectomy, TECHNIQUE: XR chest 2V view(s) obtained. FINDINGS: The heart size is normal. The pulmonary vasculature is normal. Infiltrate in the left upper lung field. Left-sided chest tube is present. No pneumothorax identifie d IMPRESSION: 1. Left upper lung field opacity. 2. Left-sided chest tube present. Pneumothorax not identified [facility], , 10/27/2024 10:13 AM
--- NOTE | 2024-10-27 12:29 | P.PN ---
Subjective Progress Note Date: 10/27/24 Patient is a 54-year-old female with past medical history significant for COPD, left upper lobe nodule. Left upper lung nodule originally noted back on low- dose lung screening CT. Follow-up PET scan from July 2024 demonstrating a bilobed mass with upper component measuring 11.5 x 20 mm and the lower component of the mass measuring 12 x 16 mm. Mean SUV of 8.4 for the upper portion and 5.6 for the lower portion. No evidence of metastatic disease noted. Patient was referred to cardiothoracic surgery. Patient was brought in yesterday for a robotic assisted thorascopic left upper lobectomy with mediastinal lymph node dissection. No perioperative complications reported. Patient was sent to the selective care unit following the procedure. Follow-up chest x-ray showing hyperinflation and flattening of the diaphragms consistent with COPD, with postsurgical changes of the left chest tube in place. Trace 2 mm left apical pneumothorax. And probably some postoperative atelectasis or contusion within the left upper lung. Current vital signs: Afebrile, heart rate 77 bpm, blood pressure 108/63 mmHg, nontachypneic, SpO2 98% on 2 L/min nasal cannula. Patient is currently lying in bed, has left chest tube in place to suction at -20 cm H2O, continues to have intermittent airleak. There is a total of 650 of serosanguineous output in the collection chamber. Her chief complaint at this time is some postsurgical left-sided back pain. Rated 8 out of 10. For analgesics, she is currently receiving Toradol 15 mg every 6 hours as well as Ultram as needed 4 times daily. She has not received a dose of tramadol since yesterday afternoon. Her incentive spirometer is on the bedside table, achieves around 750. 10/27/2024, the patient is being seen for a follow-up. Doing well. Right side chest tube has been removed today. Chest x-ray from this morning showed postsurgical changes in the left lung. No evidence of any pneumothorax. No evidence of air leak from the chest tube prior to the removal. Hemodynamically stable. Using incentive spirometer. White cell count of 8.9 with a hemoglobin 9.6. Electrolytes all within normal limits. The patient is postop day #2 following a left upper lobe resection. Objective - Vital Signs Vital signs: Vital Signs Temp 98.1 F 10/26/24 20:00 Pulse 82 10/27/24 08:21 Resp 16 10/27/24 04:00 BP 97/58 10/27/24 04:00 Pulse Ox 95 10/27/24 04:00 FiO2 Intake & Output 10/26/24 10/27/24 10/27/24 18:59 06:59 18:59 Intake Total 780 Output Total 810 Balance -30 Weight 47.5 kg Intake: Oral 780 Output: Chest Tube Drainage 110 Chest Tube Left 110 Urine 700 Other: Voiding Method Toilet Toilet # Voids 2 - Exam GENERAL EXAM: Alert, 54-year-old female, comfortable in no apparent distress. HEAD: Normocephalic and atraumatic EYES: Normal reaction of pupils, equal size. NOSE: Clear with pink turbinates. THROAT: No erythema or exudates. NECK: No masses, no JVD. CHEST: No chest wall deformity. Postsurgical dressing is clean, dry, intact. Left-sided chest tube has been removed LUNGS: Equal air entry with no crackles, wheeze, rhonchi or dullness. No conversational dyspnea or accessory muscle use.. CVS: S1 and S2 normal with no audible murmur, regular rhythm. No extra heart sounds ABDOMEN: No hepatosplenomegaly, active bowel sounds, no guarding or rigidity. SPINE: No scoliosis or deformity SKIN: No rashes CENTRAL NERVOUS SYSTEM: No focal deficits, tone is normal in all 4 extremities. EXTREMITIES: There is no peripheral edema, clubbing, or cyanosis. Peripheral pulses are intact. - Labs CBC & Chem 7: 10/27/24 06:23 10/27/24 06:23 Labs: Abnormal Lab Results - Last 24 Hours (Table) 10/27/24 10/27/24 Range/Units 06:23 06:23 RBC 3.22 L (3.80-5.40) m/uL Hgb 9.6 L (11.4-16.0) gm/dL Hct 28.1 L (34.0-46.0) % Sodium 133 L (137-145) mmol/L Assessment and Plan Assessment: Status postoperative day #2 following left upper lobectomy, chest tubes are removed and the patient is currently on room air oxygen History of left upper lobe lung nodule, previous PET scan done July 2024 dem onstrating a bilobed mass with SUV uptake of 8.4 on the upper portion and 5.6 in the lower portion. No evidence of metastatic disease. Patient was referred to cardiothoracic surgery. Chronic obstructive pulmonary disease, with a preoperative FEV1 79% of predicted, inactive Current ongoing tobacco dependence, she is working on quitting, and smoked only 4 cigarettes last week History of hyperlipidemia Plan: Patient currently on room air oxygen Left-sided chest tubes were removed Repeat chest x-ray pending for this morning Pathology is pending Continue supplemental oxygen to maintain oxygen saturation of 92% or greater As needed analgesics ordered Encourage incentive spirometer
--- NOTE | 2024-10-27 15:44 | P.PN ---
Subjective Progress Note Date: 10/27/24 History of present illness: Patient is a pleasant 54-year-old female with significant past medical history of COPD, tobacco abuse, lung mass, and Mobitz type I who presented for elective left upper lobectomy with cardiothoracic surgery. She follows with Dr. Coburn in the office. She has been doing well postoperatively. She is out of bed in the chair. She reports pain is 6 out of 10 mostly at her drain site. Her breathing feels stable and she is not on any oxygen. She did walk a short distance in the hallway however felt a little lightheaded with this. She has been having some nausea. No chest pain or pressure. Hemoglobin 10.3, creatinine 0.65. 10/27/24 She is doing well. Chest tube was removed this morning and pain is better after this. Denies any chest pain or shortness of breath. PHYSICAL EXAMINATION: This is a 54-year-old female in no apparent distress at the time of my examination. HEENT: Head is atraumatic, normocephalic. Pupils are equal, round. Sclerae anicteric. Conjunctivae are clear. Mucous membranes of the mouth are moist. Neck is supple. There is no jugular venous distention. No carotid bruit is heard. CHEST EXAMINATION: Lungs are clear to auscultation. No chest wall tenderness is noted on palpation or with deep breathing. HEART EXAMINATION: Heart regular rate and rhythm. S1, S2 heard. No murmurs, gallops or rub. ABDOMEN: Soft, nontender. Bowel sounds are heard. No organomegaly noted. EXTREMITIES: 2+ peripheral pulses with no evidence of peripheral edema and no calf tenderness noted. NEUROLOGIC EXAMINATION: Patient is awake, alert and oriented x3. IMPRESSION AND PLAN: COPD Tobacco abuse Lung mass History of Mobitz type I Status post left upper lobectomy PLAN: She has been stable post op. Continue with current regimen. Anticipate discharge home tomorrow. Further recommendations depending on clinical course. I am dictating on behalf of Dr. Jorge Simms's history/physical and assessment/plan. Objective - Vital Signs Vital signs: Vital Signs Temp 98.1 F 10/26/24 20:00 Pulse 101 H 10/27/24 04:00 Resp 16 10/27/24 04:00 BP 97/58 10/27/24 04:00 Pulse Ox 95 10/27/24 04:00 FiO2 Intake & Output 10/26/24 10/27/24 10/27/24 18:59 06:59 18:59 Intake Total 780 Output Total 810 Balance -30 Weight 47.5 kg Intake: Oral 780 Output: Chest Tube Drainage 110 Chest Tube Left 110 Urine 700 Other: Voiding Method Toilet Toilet # Voids 2 - Labs CBC & Chem 7: 10/27/24 06:23 10/27/24 06:23 Labs: Abnormal Lab Results - Last 24 Hours (Table) 10/27/24 10/27/24 Range/Units 06:23 06:23 RBC 3.22 L (3.80-5.40) m/uL Hgb 9.6 L (11.4-16.0) gm/dL Hct 28.1 L (34.0-46.0) % Sodium 133 L (137-145) mmol/L
[2024-10-27] MEDS ORDERED: ACETAMINOPHEN TAB 325 MG TAB PO PRN (18:00)
[2024-10-28] MEDS ORDERED: IBUPROFEN 400 MG TAB PO PRN (06:58)
[2024-10-28] MEDS ORDERED: SENNOSIDES-DOCUSATE SODIUM 1 EACH TAB PO PRN (06:59)
--- NOTE | 2024-10-28 08:38 | P.DS ---
Providers Date of admission: 10/25/24 05:37 Expected date of discharge: 10/28/24 Attending physician: Tyrel Llanos Consults: 10/25/24 13:54 Consult Physician Routine Consulting Provider: Ivan Carrasco Consult Reason/Comments: post lobectomy Do you want consulting provider notified?: Yes Consult Physician Routine Consulting Provider: Stewart Dutton Consult Reason/Comments: known to you Do you want consulting provider notified?: Yes Primary care physician: Jr Garcia Hospital Course: FINAL DIAGNOSIS: Left upper lobe mass, non-small cell carcinoma of lung, frozen section positive for non-small cell carcinoma, final pathology pending History of current tobacco dependence COPD Hyperlipidemia Mobitz type I heart block Osteoarthritis PRINCIPAL PROCEDURE: Robotic assisted thoracoscopic left upper lobectomy with mediastinal lymph node dissection HISTORY OF PRESENT ILLNESS: This is a 54-year-old female who follows outpatient with Dr. Garcia for primary care, Dr. Aleman for pulmonology, and Dr. Dutton for cardiology. She had a screening CT scan which demonstrated a lobulated mass in the superior portion of the left upper lobe which was PET positive, there was no adenopathy on CT and no evidence of metastasis on PET. MRI of the brain was also negative for metastasis. The patient was referred to Dr. Llanos from cardiothoracic surgery. She was recommended to undergo robotic left upper lobectomy. The usual perioperative course was discussed in detail with the patient and her family, all risks and benefits were explained, all questions were answered, and consent was obtained to proceed with surgery. The patient wanted to wait until after the holidays to be scheduled for surgery, she was strongly encouraged to quit smoking prior to surgery. HOSPITAL COURSE: The patient was brought to the hospital on 10/25/24, taken to the preoperative area, prepared in the usual fashion, and subsequently taken to the operating room where Dr. Llanos performed a robotic assisted thoracoscopic left upper lobectomy with mediastinal lymph node dissection. Upon completion of surgery the patient was extubated and taken to the recovery room for further monitoring. She was eventually admitted to 3 S. cardiac stepdown unit for further monitoring. Her chest tube was placed to waterseal on postop day #1 and removed on postop day #2. Follow-up chest x-ray was stable. She did have some nausea in the first couple of days of her stay which is normal for her from anesthesia, completely resolved prior to discharge. Her oxygen was titrated down, she continued to work with physical and occupational therapy, she was tolerating oral diet, her pain was controlled, and she was ready to be discharged to home on postoperative day #3. She received written and verbal instruction regarding her medications, activity restrictions, signs and symptoms requiring physician notification, and follow-up appointments. Patient Condition at Discharge: Stable Plan - Discharge Summary Discharge Rx Participant: Yes New Discharge Prescriptions: New Metoprolol Tartrate [Lopressor] 12.5 mg PO BID #60 tab Ibuprofen [Motrin] 400 mg PO Q6HR PRN tab PRN Reason: Pain Sennosides-Docusate Sodium [Senokot-S] 1 each PO BID PRN tab PRN Reason: Constipation Acetaminophen Tab [Tylenol] 650 mg PO Q4HR PRN tab PRN Reason: Mild To Moderate Pain (1 - 6) Continue Albuterol Nebulized [Ventolin Nebulized] 2.5 mg INHALATION Q6H PRN PRN Reason: COPD Changed Aspirin EC [Ecotrin Low Dose] 81 mg PO DAILY #0 Discharge Medication List Albuterol Nebulized [Ventolin Nebulized] 2.5 mg INHALATION Q6H PRN 03/09/22 [History] Acetaminophen Tab [Tylenol] 650 mg PO Q4HR PRN tab 10/28/24 [Rx] Aspirin EC [Ecotrin Low Dose] 81 mg PO DAILY #0 10/28/24 [Rx] Ibuprofen [Motrin] 400 mg PO Q6HR PRN tab 10/28/24 [Rx] Metoprolol Tartrate [Lopressor] 12.5 mg PO BID #60 tab 10/28/24 [Rx] Sennosides-Docusate Sodium [Senokot-S] 1 each PO BID PRN tab 10/28/24 [Rx] Follow up Appointment(s)/Referral(s): Jr Garcia MD [Primary Care Provider] - As Needed Stewart Dutton MD [STAFF PHYSICIAN] - As Needed Tyrel Llanos MD [STAFF PHYSICIAN] - 1 Week (Office will call on Tuesday with appointment time) Boy Aleman MD [STAFF PHYSICIAN] - 1 Week (Office will call on Tuesday with appointment time) Activity/Diet/Wound Care/Special Instructions: DISCHARGE INSTRUCTIONS: 1. No driving for 2 weeks, or until physician gives their ok. 2. No lifting, pushing, or pulling more than 10 pounds for 2 weeks. The physician will advise of any restriction changes. 3. Continue pain control per as needed orders. Alternate acetaminophen (Tylenol) and ibuprofen (Motrin/Advil) for pain. 4. Continue with incentive spirometry and splinting until otherwise directed by the physician. 5. Leave chest tube dressing for 48 hours (Tuesday). After that, remove all dressings and shower daily. 6. Routine incision care. No powders, lotions, ointments on incisions. 7. Please call surgeon/POLISHER SAND for temp greater than 101 F or purulent drainage from incisions. 8. Smoking cessation counseling and program information provided. Quitting smoking is the most important step you can take to improve your health. For additional information and assistance to quit smoking, please call the [place] tobacco quit line (3-691-LEKM-NOW/ ) or online: [email or web address] Discharge Disposition: HOME SELF-CARE
[2024-10-28] MEDS: METOPROLOL TARTRATE 12.5 MG TAB PO STA (09:23)
[2024-10-28 09:39] VITALS: BP 100/60; TEMP 98.4
[2024-10-28 09:58] VITALS: PULSE 94
--- NOTE | 2024-10-28 10:25 | XR ---
EXAMINATION TYPE: XR chest 2V DATE OF EXAM: 10/28/2024 7:01 AM COMPARISON: 10/27/2024 CLINICAL INDICATION: Female, 54 years old with history of Post lobectomy, post chest tube removal, TECHNIQUE: XR chest 2V view(s) obtained. FINDINGS: The heart size is normal. The pulmonary vasculature is normal. There is left upper lobe opacity which is stable from comparison. Left-sided chest tube is been remov ed. No pneumothorax is evident. Small left pleural effusion is present There is interval development of an air-fluid level within the left suprahilar region.. IMPRESSION: 1. No pneumothorax post left-sided chest tube removal. 2. Small left pleural effusion. 3. Air-fluid level at the left hilum. Additional workup recommended. 4. Stable left upper lobe density [facility] Obrien, , 10/28/2024 10:23 AM
--- NOTE | 2024-10-28 12:53 | P.PN ---
Subjective Progress Note Date: 10/28/24 Patient is a 54-year-old female with past medical history significant for COPD, left upper lobe nodule. Left upper lung nodule originally noted back on low- dose lung screening CT. Follow-up PET scan from July 2024 demonstrating a bilobed mass with upper component measuring 11.5 x 20 mm and the lower component of the mass measuring 12 x 16 mm. Mean SUV of 8.4 for the upper portion and 5.6 for the lower portion. No evidence of metastatic disease noted. Patient was referred to cardiothoracic surgery. Patient was brought in yesterday for a robotic assisted thorascopic left upper lobectomy with mediastinal lymph node dissection. No perioperative complications reported. Patient was sent to the selective care unit following the procedure. Follow-up chest x-ray showing hyperinflation and flattening of the diaphragms consistent with COPD, with postsurgical changes of the left chest tube in place. Trace 2 mm left apical pneumothorax. And probably some postoperative atelectasis or contusion within the left upper lung. Current vital signs: Afebrile, heart rate 77 bpm, blood pressure 108/63 mmHg, nontachypneic, SpO2 98% on 2 L/min nasal cannula. Patient is currently lying in bed, has left chest tube in place to suction at -20 cm H2O, continues to have intermittent airleak. There is a total of 650 of serosanguineous output in the collection chamber. Her chief complaint at this time is some postsurgical left-sided back pain. Rated 8 out of 10. For analgesics, she is currently receiving Toradol 15 mg every 6 hours as well as Ultram as needed 4 times daily. She has not received a dose of tramadol since yesterday afternoon. Her incentive spirometer is on the bedside table, achieves around 750. 10/27/2024, the patient is being seen for a follow-up. Doing well. Right side chest tube has been removed today. Chest x-ray from this morning showed postsurgical changes in the left lung. No evidence of any pneumothorax. No evidence of air leak from the chest tube prior to the removal. Hemodynamically stable. Using incentive spirometer. White cell count of 8.9 with a hemoglobin 9.6. Electrolytes all within normal limits. The patient is postop day #2 following a left upper lobe resection. On today's evaluation of 10/28/2024, the patient has no specific complaints. Doing extremely well. No respiratory distress. Repeat chest x-ray was done and it shows no evidence of any significant abnormalities or pneumothorax. Small left-sided pleural effusion is present. Patient is ambulating. Labs from yesterday were noted. No new labs are available from today. She is currently on room air oxygen. Hemodynamically stable. Pulse ox in the order of 95%. Objective - Vital Signs Vital signs: Vital Signs Temp 98.4 F 10/28/24 08:05 Pulse 94 10/28/24 09:57 Resp 16 10/28/24 08:05 BP 100/60 10/28/24 08:05 Pulse Ox 98 10/28/24 08:05 FiO2 Intake & Output 10/27/24 10/28/24 10/28/24 18:59 06:59 18:59 Intake Total 1080 Output Total 400 200 Balance -400 880 Weight 45.5 kg Intake: Oral 1080 Output: Urine 400 200 Other: Voiding Method Toilet Toilet Toilet # Bowel Movements 2 - Exam GENERAL EXAM: Alert, 54-year-old female, comfortable in no apparent distress. HEAD: Normocephalic and atraumatic EYES: Normal reaction of pupils, equal size. NOSE: Clear with pink turbinates. THROAT: No erythema or exudates. NECK: No masses, no JVD. CHEST: No chest wall deformity. Postsurgical dressing is clean, dry, intact. Left-sided chest tube has been removed LUNGS: Equal air entry with no crackles, wheeze, rhonchi or dullness. No conversational dyspnea or accessory muscle use.. CVS: S1 and S2 normal with no audible murmur, regular rhythm. No extra heart sounds ABDOMEN: No hepatosplenomegaly, active bowel sounds, no guarding or rigidity. SPINE: No scoliosis or deformity SKIN: No rashes CENTRAL NERVOUS SYSTEM: No focal deficits, tone is normal in all 4 extremities. EXTREMITIES: There is no peripheral edema, clubbing, or cyanosis. Peripheral pulses are intact. - Labs CBC & Chem 7: 10/27/24 06:23 10/27/24 06:23 Assessment and Plan Assessment: Status postoperative day # 3 following left upper lobectomy, chest tubes are removed and the patient is currently on room air oxygen History of left upper lobe lung nodule, previous PET scan done July 2024 demonstrating a bilobed mass with SUV uptake of 8.4 on the upper portion and 5.6 in the lower portion. No evidence of metastatic disease. Patient was referred to cardiothoracic surgery. Chronic obstructive pulmonary disease, with a preoperative FEV1 79% of predicted, inactive Current ongoing tobacco dependence, she is working on quitting, and smoked only 4 cigarettes last week History of hyperlipidemia Plan: Patient currently on room air oxygen Left-sided chest tubes were removed Repeat chest x-ray shows no acute abnormalities and there is no evidence of a pneumothorax Pathology is pending As needed analgesics ordered Encourage incentive spirometer Discharge home today.
--- NOTE | 2024-10-28 23:47 | HP ---
HISTORY AND PHYSICAL CHIEF COMPLAINT: Lesion in the left upper lobe. HISTORY OF PRESENT ILLNESS: This 54-year-old female is admitted for left upper lobe lobectomy for carcinoma of the lung. She feels well. REVIEW OF SYSTEMS: She denies any headaches, chest pain, hemoptysis, anorexia, etc. Past medical history, family history, personal, social history reveal that she is not allergic to any medication. MEDICATIONS: She is on, 1. Hydroxyzine 25 mg 3 times a day. 2. Oxybutynin. 3. Atorvastatin. 4. Ezetimibe. Remainder of her history is unremarkable. SOCIAL HISTORY: She had continued to smoke. PHYSICAL EXAMINATION: VITAL SIGNS: Blood pressure is 106/70 with a pulse 91, regular. GENERAL: She appeared to be slender, well developed, well nourished, and in no acute distress. HEAD, EARS, EYES, NOSE, MOUTH, AND THROAT: Revealed her strabismus with exotropia on the left. CHEST: Clear. CARDIAC: Exam is normal. ABDOMEN: Soft and nontender. EXTREMITIES: Normal. IMPRESSION: 1. Left upper lobe tumor. 2. Chronic obstructive pulmonary disease. 3. Strabismus. PLAN: Bed rest and follow with surgery for any medical issues. MMODL / IJN: [id number] /
--- NOTE | 2024-10-29 02:14 | PN ---
PROGRESS NOTE DATE OF SERVICE: 10/26/2024 CHIEF COMPLAINT: Left upper lobe malignancy. HISTORY OF PRESENT ILLNESS: This lady is doing fairly well. She is not having a lot of chest pain. She does not have a chest tube. PHYSICAL EXAMINATION: GENERAL: She is awake and alert. CHEST: Clear with good breath sounds bilaterally. CARDIAC: Normal. ABDOMEN: Soft, nontender. IMPRESSION: Status post left upper lobectomy for carcinoma of the lung. PLAN: Continue to follow with Thoracic Surgery. She is doing well. MMODL / IJN: [id number] /
--- NOTE | 2024-10-29 02:23 | PN ---
PROGRESS NOTE DATE OF SERVICE: 10/27/2024 CHIEF COMPLAINT: Carcinoma of the left upper lobe. HISTORY OF PRESENT ILLNESS: This lady is doing well. She has had no fever, chills, cough, etc. PHYSICAL EXAMINATION: CHEST: Clear. There is no chest tube. CARDIAC: Normal. ABDOMEN: Soft, nontender. IMPRESSION: Status post left upper lobectomy for carcinoma of the lung. PLAN: Increase activity, and she will go home when she is cleared for discharge by the surgeon. MMODL / IJN: [id number] /
== END 2024-10-28 10:06 | disposition home or self-care (01) | DRG 120 ==
LOC: 2ORMAIN 05:37 → 3SCARD 13:35
PROVIDERS: ADMIT Thoracic Surgery (Cardiothoracic Vascular Surgery); ATTEND Thoracic Surgery (Cardiothoracic Vascular Surgery)
PROC: 0BTG4ZZ Resection of Left Upper Lung Lobe, Percutaneous Endoscopic Approach (ICD-10-PCS; principal; 2024-10-25 07:30)
PROC: 07B74ZX Excision of Thorax Lymphatic, Percutaneous Endoscopic Approach, Diagnostic (ICD-10-PCS; principal; 2024-10-25 07:30)
PROC: 8E0W4CZ Robotic Assisted Procedure of Trunk Region, Percutaneous Endoscopic Approach (ICD-10-PCS; principal; 2024-10-25 07:30)
DX: C34.12 Malignant neoplasm of upper lobe, left bronchus or lung (principal); E78.5 Hyperlipidemia, unspecified; F17.200 Nicotine dependence, unspecified, uncomplicated; H50.9 Unspecified strabismus; J93.9 Pneumothorax, unspecified; I25.10 Atherosclerotic heart disease of native coronary artery without angina pectoris; I44.1 Atrioventricular block, second degree; R59.0 Localized enlarged lymph nodes; J43.9 Emphysema, unspecified; J90 Pleural effusion, not elsewhere classified; J98.11 Atelectasis; M19.90 Unspecified osteoarthritis, unspecified site; Z79.82 Long term (current) use of aspirin; Z71.6 Tobacco abuse counseling
CPT/HCPCS: 64999; 71045; 71046; 80048; 85025; 85027; 88305; 88309; 88331; 88332; 88341; 88342; 94640; 94760

== ENCOUNTER 2024-11-08 14:57 | Inpatient (IN) | payer OTHER ==
[2024-11-08] MEDS ORDERED: RX INFO: IV CONTRAST WAS GIVEN 1 EACH MISC MISCELLANE PRN (15:22)
--- NOTE | 2024-11-08 15:40 | ED ---
General Adult HPI - General Chief complaint: Chest Pain Stated complaint: eval for pneumothorax Time Seen by Provider: 11/08/24 15:11 Source: patient, RN notes reviewed, old records reviewed Mode of arrival: ambulatory Limitations: no limitations - History of Present Illness Initial comments: Patient is a 54-year-old female who was sent to the emergency department after being sent by her live truck operator for her CT to evaluate for possible pneu mothorax. Concern on chest x-ray at her routine follow-up appointment. Has not had any symptoms since she had chest tube removed on approximately October 27, 2024 following a left upper lobectomy with mediastinal lymph node dissection performed by Dr. Llanos of cardiothoracic surgery at our facility. Was following with her live truck operator, Dr. White for routine follow-up. Chest x-ray was concerning which is why she was sent here for CT imaging of the chest. She states that since chest tube removal, she has been having some soreness and pain at the incision sites over the left inferior lateral chest wall but no new symptoms. No significant worsening shortness of breath or cough. No fevers or chills. Denies any acute symptoms. States everything is chronic. Was just having routine follow-up when she was sent here for CT imaging. Presents for further evaluation at this time. - Related Data Home Medications Medication Instructions Recorded Confirmed Ibuprofen [Motrin] 600 mg PO BID-W/MEALS PRN 11/08/24 11/08/24 Metoprolol Tartrate [Lopressor] 12.5 mg PO BID 11/08/24 11/08/24 Sennosides-Docusate Sodium 1 tab PO BID PRN 11/08/24 11/08/24 [Senokot-S] Previous Rx's Medication Instructions Recorded Aspirin EC [Ecotrin Low Dose] 81 mg PO DAILY #0 10/28/24 Allergies Allergy/AdvReac Type Severity Reaction Status Date / Time No Known Allergies Allergy Verified 11/08/24 15:29 Review of Systems ROS Statement: Those systems with pertinent positive or pertinent negative responses have been documented in the HPI. Review of Systems: CONST: Denies fever EYES: Denies blurry vision ENT: Denies nasal congestion C/V: Denies Chest pain RESP: Denies shortness of breath GI: Denies abdominal pain : Denies dysuria SKIN: Denies rash. MSK: Denies joint pain. NEURO: Denies headache ROS Other: All systems not noted in ROS Statement are negative. Past Medical History Past Medical History: Coronary Artery Disease (CAD), Cancer, COPD, Hyperlipidemia, Osteoarthritis (OA) Additional Past Medical History / Comment(s): Heart condition-uncertain of the exact diagnosis. History of Any Multi-Drug Resistant Organisms: None Reported Past Surgical History: Appendectomy, Heart Catheterization Additional Past Surgical History / Comment(s): Benign ovarian tumor removed, etopic X2, eye surgery for Strabismus. Past Anesthesia/Blood Transfusion Reactions: No Reported Reaction Additional Past Anesthesia/Blood Transfusion Reaction / Comment(s): no hx. of transfusions Past Psychological History: Anxiety Smoking Status: Former smoker Past Alcohol Use History: None Reported Past Drug Use History: None Reported - Past Family History Mother Family Medical History: Cancer Additional Family Medical History / Comment(s): Colon cancer w/ mets. Father Family Medical History: Myocardial Infarction ([place]) Additional Family Medical History / Comment(s): Cerebral Palsy. General Exam - General Exam Comments Initial Comments: General: Appears in no acute distress. HEAD: Normal with no signs of head trauma. EYES: PERRLA, EOMI, conjunctiva normal, no discharge. ENT: Hearing grossly intact, normal oropharynx. Trachea is midline. RESPIRATORY: Clear breath sounds bilaterally. No wheezes, rales, or rhonchi. C/V: Regular rate and rhythm. S1 and S2 auscultated, no edema, peripheral pulses 2+ and intact throughout ABD: Abd is soft, nontender, nondistended EXT: Normal range of motion, no obvious deformity SKIN: 4 healing surgical incisions over the lateral inferior chest wall. No suggestion of infectious process. Healing appropriately. Tenderness around the sites of the incisions. NEURO: Alert and oriented x 4. Limitations: no limitations Course Vital Signs 11/08/24 11/08/24 11/08/24 15:04 17:40 18:15 Temperature 97.8 F Pulse Rate 93 86 82 Respiratory 20 18 18 Rate Blood Pressure 106/73 146/88 133/76 O2 Sat by Pulse 98 96 95 Oximetry Medical Decision Making - Medical Decision Making Was pt. sent in by a medical professional or institution (, PA, MACHINE PACKAGER, urgent care, hospital, or shelter...) When possible be specific @ -Sent by live truck operator for CT imaging of the chest to evaluate for pneumothorax. Did you speak to anyone other than the patient for history (EMS, parent, family, police, friend...)? What history was obtained from this source @ -No Did you review nursing and triage notes (agree or disagree)? Why? @ -I reviewed and agree with nursing and triage notes Were old charts reviewed (outside hosp., previous admission, EMS record, old EKG, old radiological studies, urgent care reports/EKG's, shelter records)? Report findings @ -Reviewed prior notes including from recent admission on October 25, 2024 when she received her surgery with Dr. Llanos. Differential Diagnosis (chest pain, altered mental status, abdominal pain women, abdominal pain men, vaginal bleeding, weakness, fever, dyspnea, syncope, headache, dizziness, GI bleed, back pain, seizure, CVA, palpatations, mental health, musculoskeletal)? @ -Pneumothorax, normal post lobectomy changes, chest wall pain. This list is not all inclusive. EKG interpreted by me (3pts min.). @ -As above X-rays interpreted by me (1pt min.). @ -None done CT interpreted by me (1pt min.). @ -CT imaging revealed a left-sided 50% pneumothorax with a moderate size left pleural effusion as well as left lung base density that could be atelectasis or mass. This is in the setting of a left upper lobe lobectomy. U/S interpreted by me (1pt. min.). @ -None done What testing was considered but not performed or refused? (CT, X-rays, U/S, labs)? Why? @ -None What meds were considered but not given or refused? Why? @ -None Did you discuss the management of the patient with other professionals (professionals i.e. , PA, MACHINE PACKAGER, lab, RT, psych nurse, social science teacher, benchroom shop optician, teacher, corporate security officer, medical case manager)? Give summary @ -Discussed at length with cardiothoracic surgery who performed the original procedure and left upper lobectomy approximately 2 weeks ago. Initially spoke with JULISSA Springer who recommended I contact the attending who is already aware of the patient. I spoke with Dr. Britt the attending who after discussion of the CT results as well as patient's clinical presentation, not being in any form of distress, we agreed that emergent chest tube is not required at this time. Karyna ackerman will be admitted to observation and watched overnight. Repeat chest x-ray ordered for the morning. I spoke with admitting team, JULISSA Pink of [facility] who accepted the admission. Was smoking cessation discussed for >3mins.? @ -No Was critical care preformed (if so, how long)? @ -Yes, 31 minutes. Multiple conversations with consultants. Multiple reevaluations of the patient. Were there social determinants of health that impacted care today? How? (Homelessness, low income, unemployed, alcoholism, drug addiction, transportation, low edu. Level, literacy, decrease access to med. care, longterm, rehab)? @ -No Was there de-escalation of care discussed even if they declined (Discuss DNR or withdrawal of care, Hospice)? DNR status @ -No What co-morbidities impacted this encounter? (DM, HTN, Smoking, COPD, CAD, Cancer, CVA, ARF, Chemo, Hep., AIDS, mental health diagnosis, sleep apnea, morb id obesity)? @ -Recent left upper lobe pneumectomy. COPD. CAD. Was patient admitted / discharged? Hospital course, mention meds given and route, prescriptions, significant lab abnormalities, going to OR and other pertinent info. @ -Patient presents emergency department over concern for possible pneumothorax. Was sent from Dr. Bush's office. Information obtained from patient. Was there for routine checkup with no new symptoms. Has been dealing with chest tube removal and routine chest wall pain since removal approximately 2 weeks ago. Presents for further evaluation at this time. Vitals are within acceptable limits. Patient will be administered IV fluids in addition to obtaining basic labs, screening EKG, as well as a CT chest. Patient was in agreement this plan. Patient request lidocaine patch for her chest wall pain. Patient's laboratory studies returned within acceptable limits. Patient does have a mild leukocytosis of 11.5 which is likely reactive. Hemoglobin is stable with her. Hemoglobin at 10.3. Remainder of labs unremarkable. CT imaging does reveal a left-sided 50% pneumothorax with pleural effusion. Patient did have the left upper lobe pneumectomy and therefore after discussion with cardiothoracic surgery both Dr. Britt and JULISSA babb, this can be expected postop. As the patient is currently having no acute complaints. No significant new complaints. No hypoxic respiratory failure. And is resting comfortably we all agreed to avoid chest tube placement at this time. They may provide a form of intervention tomorrow, possible pigtail catheter in a controlled setting as this is likely more of a chronic development postop. I discussed on the phone with both of them all the findings on the CT imaging, including left-sided pneumothorax, moderate left pleural effusion, is a lot Willes the left lung base density. They were in agreement this plan. Once again, due to the patient having no clinical symptoms, no chest tube placement indicated at this time. Likely related to recent surgery. Patient will be admitted for cardiothoracic surgery evaluation. I updated the patient and she was in agreement staying. Empirically, patient made n.p.o. after midnight. Patient will be admitted to [facility] with cardiothoracic surgery on his consult. [facility] is covering for Dr. Garcia. I spoke with [facility] on- call JULISSA Pink who accepted the admission. Patient continues to be in no respiratory distress at time of admission and is resting comfortably at this time. Undiagnosed new problem with uncertain prognosis? @ -No Drug Therapy requiring intensive monitoring for toxicity (Heparin, Nitro, Insulin, Cardizem)? @ -No Were any procedures done? @ -No Diagnosis/symptom? @ -Postoperative left pneumothorax and pleural effusion Acute, or Chronic, or Acute on Chronic? @ -Acute Uncomplicated (without systemic symptoms) or Complicated (systemic symptoms)? @ -Complicated Side effects of treatment? @ -None Exacerbation, Progression, or Severe Exacerbation] @ -No Poses a threat to life or bodily function? @ -Potentially, yes - Lab Data Result diagrams: 11/08/24 15:50 11/08/24 15:50 Lab Results 11/08/24 11/08/24 11/08/24 Range/Units 15:50 15:50 15:50 WBC 11.5 H (3.8-10.6) k/uL RBC 3.62 L (3.80-5.40) m/uL Hgb 10.3 L (11.4-16.0) gm/dL Hct 32.0 L (34.0-46.0) % MCV 88.4 (80.0-100.0) fL MCH 28.6 (25.0-35.0) pg MCHC 32.3 (31.0-37.0) g/dL RDW 14.4 (11.5-15.5) % Plt Count 740 H D (150-450) k/uL MPV 6.6 Neutrophils % 70 % Lymphocytes % 15 % Monocytes % 9 % Eosinophils % 4 % Basophils % 0 % Neutrophils # 8.1 H (1.3-7.7) k/uL Lymphocytes # 1.7 (1.0-4.8) k/uL Monocytes # 1.0 (0-1.0) k/uL Eosinophils # 0.5 (0-0.7) k/uL Basophils # 0.0 (0-0.2) k/uL PT 9.7 L (10.0-12.5) sec INR 0.8 (<1.2) APTT 23.9 (22.0-30.0) sec Sodium 136 L (137-145) mmol/L Potassium 4.0 (3.5-5.1) mmol/L Chloride 103 (98-107) mmol/L Carbon Dioxide 28 (22-30) mmol/L Anion Gap 5 mmol/L BUN 17 (7-17) mg/dL Creatinine 0.72 (0.52-1.04) mg/dL Est GFR (CKD-EPI)AfAm >90 (>60 ml/min/1.73 sqM) Est GFR (CKD-EPI)NonAf >90 (>60 ml/min/1.73 sqM) Glucose 106 H (74-99) mg/dL Calcium 9.6 (8.4-10.2) mg/dL Magnesium 2.1 (1.6-2.3) mg/dL Total Bilirubin 0.5 (0.2-1.3) mg/dL AST 23 (14-36) U/L ALT 9 (4-34) U/L Alkaline Phosphatase 78 (38-126) U/L Total Protein 6.4 (6.3-8.2) g/dL Albumin 3.9 (3.5-5.0) g/dL - EKG Data -: EKG Interpreted by Me EKG Comments: 12-lead Electrocardiogram Interpretation Note EKG was reviewed and interpreted by myself. 12-lead ECG performed at 1535 is interpreted by me as revealing normal sinus rhythm with right bundle branch block at a rate of 84 beats per minute. [place] is normal. CA interval is 129 ms, QRS duration is 149 ms, QTc is 402 ms.. There were no ST or T wave abnormalities to suggest myocardial ischemia or injury. R wave progression across the precordium was satisfactory. By my interpretation this EKG is non- diagnostic for acute ischemia. Critical Care Time Critical Care Time: Yes Total Critical Care Time: 31 Disposition Clinical Impression: Postoperative pneumothorax, Pleural effusion Disposition: ADMITTED IP TO THIS HOSP Condition: Stable Time of Disposition: 17:15
[2024-11-08] MEDS: SODIUM CHLORIDE 0.9% 1,000 ML IV STA ×2 (15:50→17:39)
[2024-11-08] MEDS: LIDOCAINE 4% PATCH TOPICAL STA (15:50)
[2024-11-08 15:57] LABS: Basophils % (A) 0 %; Eosinophils # (A) 0.5 k/uL (0-0.7); Eosinophils % (A) 4 %; HGB 10.3 gm/dL (11.4-16.0); Lymphocytes # (A) 1.7 k/uL (1.0-4.8); Lymphocytes % (A) 15 %; MCH 28.6 pg (25.0-35.0); MCHC 32.3 g/dL (31.0-37.0); MCV 88.4 fL (80.0-100.0); Mean Platelet Volume 6.6; Monocytes % (A) 9 %; Neutrophils # (A) 8.1 k/uL (1.3-7.7); Neutrophils % (A) 70 %; RBC 3.62 m/uL (3.80-5.40); RDW 14.4 % (11.5-15.5); WBC 11.5 k/uL (3.8-10.6)
[2024-11-08 16:09] LABS: INR 0.8 (<1.2); Partial Thromboplastin Time 23.9 sec (22.0-30.0); Prothrombin Time 9.7 sec (10.0-12.5)
[2024-11-08 16:10] LABS: Platelet Count 740 k/uL (150-450)
[2024-11-08 16:17] LABS: ALT 9 U/L (4-34); AST 23 U/L (14-36); African American GFR (CKD) >90 (>60 ml/min/1.73 sqM); Albumin 3.9 g/dL (3.5-5.0); Alkaline Phosphatase 78 U/L (38-126); Anion Gap 5 mmol/L; Blood Urea Nitrogen 17 mg/dL (7-17); Calcium 9.6 mg/dL (8.4-10.2); Carbon Dioxide 28 mmol/L (22-30); Chloride 103 mmol/L (98-107); Glucose 106 mg/dL (74-99); Magnesium 2.1 mg/dL (1.6-2.3); Non-African American GFR(CKD) >90 (>60 ml/min/1.73 sqM); Sodium 136 mmol/L (137-145); Total Bilirubin 0.5 mg/dL (0.2-1.3); Total Protein 6.4 g/dL (6.3-8.2)
--- NOTE | 2024-11-08 16:29 | CT ---
EXAMINATION TYPE: CT chest w con DATE OF EXAM: 11/08/2024 4:19 PM COMPARISON: 02/15/2019 , chest x-ray 10/28/2024 CLINICAL INDICATION: Female, 54 years old with history of recent chest tube/lung surgery., CP since l hector surgery x 2 weeks ago for Lung Ca. TECHNIQUE: Axial images were obtained at 5 mm thick sections. Reconstructed images are reviewed on [employer] computer in the coronal plane. Contrast used:100 mL of Isovue 300 with IV Contrast, (none if empty) Oral contrast used: (none if empty) CT DLP: 162 mGycm, Automated exposure control for dose reduction was used. FINDINGS: Portion of the thyroid visualized is somewhat prominent. There is a left pneumothorax. Moderate left pleural effusion is present. [facility] by telephone at time of interpretation. Lung mass or atelectasis is at the left lung base measuring 6.6 x 2.3 cm. No enlarged mediastinal or hilar adenopathy is evident. The ascending aorta diameter at the level o f the main pulmonary artery is 3.2 cm. The main pulmonary artery diameter at the bifurcation is 2.[address] sections are obtained through the upper abdomen. Abdomen is essentially unremarkable. IMPRESSION: 1. Left-sided pneumothorax. 2. Moderate left pleural effusion. 3. Left lung base density can be related to atelectasis or mass. [facility], Workstation: [email or web address], 11/08/2024 4:27 PM
[2024-11-08] MEDS ORDERED: NALOXONE 0.4 MG/ML 1 ML VIAL IV PRN (17:23)
[2024-11-08] MEDS ORDERED: ACETAMINOPHEN TAB 325 MG TAB PO PRN (17:23)
[2024-11-08] MEDS: MORPHINE SULFATE 4 MG/ML SYRINGE IVP STA (17:38)
[2024-11-08] MEDS ORDERED: IBUPROFEN 600 MG TAB PO PRN (20:01)
[2024-11-08] MEDS ORDERED: SENNOSIDES-DOCUSATE SODIUM 1 EACH TAB PO PRN (20:01)
[2024-11-08] MEDS: MORPHINE SULFATE 4 MG/ML SYRINGE IVP PRN (23:32)
[2024-11-08] MEDS: METOPROLOL TARTRATE 12.5 MG TAB PO SCH (23:33)
--- NOTE | 2024-11-09 07:44 | XR ---
EXAMINATION TYPE: XR chest 2V DATE OF EXAM: 11/09/2024 6:46 AM COMPARISON: 10/28/2024, 11/08/2024 CLINICAL INDICATION: Female, 54 years old with history of left pneumothorax post surgery, TECHNIQUE: XR chest 2V view(s) obtained. FINDINGS: The heart size is normal. The pulmonary vasculature is normal. There is a moderate to large left pneumothorax. Hydrothorax present with air-fluid level within the m id left lower lung level. Dense masses in the left perihilar region extending peripherally. Findings are stable from most recent comparison. Right lung is clear. IMPRESSION: 1. Moderate left hydropneumothorax. [facility], , 11/09/2024 7:42 AM
[2024-11-09] MEDS: ONDANSETRON 4 MG/2 ML VIAL IVP PRN (08:26)
[2024-11-09 08:27] LABS: ALT 7 U/L (8-44); AST 20 U/L (13-35); Albumin 3.6 g/dL (3.8-4.9); Albumin/Globulin Ratio 1.89 Ratio (1.60-3.17); Alkaline Phosphatase 74 U/L (41-126); Blood Urea Nitrogen 10.1 mg/dL (9.0-27.0); Calcium 8.7 mg/dL (8.7-10.3); Carbon Dioxide 27.8 mmol/L (21.6-31.8); Chloride 105 mmol/L (96-109); Globulin 1.9 g/dL (1.6-3.3); Glucose 86 mg/dL (70-110); Sodium 139 mmol/L (135-145); Total Bilirubin 0.3 mg/dL (0.3-1.2); Total Protein 5.5 g/dL (6.2-8.2)
[2024-11-09] MEDS: ASPIRIN 81 MG PO SCH (08:30)
[2024-11-09 08:42] LABS: Basophils # (A) 0.06 X 10*3/uL (0.00-0.10); Basophils % (A) 0.7 %; Eosinophils % (A) 7.4 %; HCT 29.8 % (37.2-46.3); HGB 9.3 g/dL (12.0-15.0); Lymphocytes # (A) 1.56 X 10*3/uL (0.90-5.00); Lymphocytes % (A) 19.2 %; MCH 28.1 pg (27.0-32.0); MCHC 31.2 g/dL (32.0-37.0); Mean Platelet Volume 8.8 FL (9.5-12.2); Monocytes # (A) 0.77 X 10*3/uL (0.20-1.00); Monocytes % (A) 9.5 %; NRBC Per 100 WBC 0 X 10*3/uL (0.00-0.01); Neutrophils # (A) 5.11 X 10*3/uL (1.80-7.70); Neutrophils % (A) 62.8 %; Platelet Count 657 X 10*3/uL (140-440); RBC 3.31 X 10*6/uL (4.10-5.20); RDW 14.5 % (11.5-14.5); WBC 8.13 X 10*3/uL (4.50-10.00)
--- NOTE | 2024-11-09 10:32 | P.GSCN ---
History of Present Illness Consult date: 11/09/24 Reason for Consult: Known to our service post lobectomy, pneumothorax Requesting physician: Mihai Khoury History of present illness: This is a 54-year-old female who follows outpatient with Dr. Garcia for primary care, Dr. Aleman for pulmonology, and Dr. Dutton for cardiology. She has a previous medical history of tobacco dependence with COPD, left upper lobe mass status post left upper lobectomy, hyperlipidemia, Mobitz type I heart block, and osteoarthritis. She had a screening CT scan which demonstrated a lobulated mass in the superior portion of the left upper lobe which was PET positive, there was no adenopathy on CT and no evidence of metastasis on PET. MRI of the brain was also negative for metastasis. The patient was referred to Dr. Llanos from cardiothoracic surgery. She was recommended to undergo robotic left upper lobectomy, and was brought to [facility] on 10/25/24 and underwent robotic assisted thoracoscopic left upper lobectomy with mediastinal lymph node dissection by Dr. Llanos. Upon completion of surgery the patient was extubated and taken to the recovery room for further monitoring, and eventually admitted to 3 S. cardiac stepdown unit for further monitoring. Her chest tube was placed to waterseal on postop day #1 and removed on postop day #2. Follow-up chest x-ray was stable. She did have some nausea in the first couple of days of her stay which is normal for her from anesthesia, completely resolved prior to discharge. Her oxygen was titrated down, she continued to work with physical and occupational therapy, she was tolerating oral diet, her pain was controlled, and she was ready to be discharged to home on postoperative day #3. Yesterday she went for scheduled follow-up with Dr. Bush, chest x-ray revealed left- sided pneumothorax and she was sent to the emergency room by Dr. Bush. Chest CT was completed in the emergency room revealing left-sided pneumothorax, moderate left-sided pleural effusion, and left lung base density consistent with atelectasis. The patient was admitted for evaluation and treatment with consultation placed to pulmonology and cardiothoracic surgery. 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 Left upper lobectomy on October 25, 2024 Past Anesthesia/Blood Transfusion Reactions: No Reported Reaction Additional Past Anesthesia/Blood Transfusion Reaction / Comm: no hx. of transfusions Past Psychological History: Anxiety Smoking Status: Former smoker Past Alcohol Use History: None Reported Past Drug Use History: None Reported - Past Family History Mother Family Medical History: Cancer Additional Family Medical History / Comment(s): Colon cancer w/ mets. Father Family Medical History: Myocardial Infarction ([place]) Additional Family Medical History / Comment(s): Cerebral Palsy. Medications and Allergies Home Medications Medication Instructions Recorded Confirmed Type Aspirin EC [Ecotrin Low Dose] 81 mg PO DAILY #0 10/28/24 11/08/24 Rx Ibuprofen [Motrin] 600 mg PO BID-W/MEALS PRN 11/08/24 11/08/24 History Metoprolol Tartrate [Lopressor] 12.5 mg PO BID 11/08/24 11/08/24 History Sennosides-Docusate Sodium 1 tab PO BID PRN 11/08/24 11/08/24 History [Senokot-S] Allergies Allergy/AdvReac Type Severity Reaction Status Date / Time No Known Allergies Allergy Verified 11/08/24 15:29 Surgical - Exam Vital Signs Temp Pulse Resp BP Pulse Ox 97.8 F 93 20 106/73 98 11/08/24 15:04 11/08/24 15:04 11/08/24 15:04 11/08/24 15:04 11/08/24 15:04 CONSTITUTIONAL: Awake and alert, appears comfortable, cooperative, well-d eveloped, well-nourished, no pain, no acute distress EYES: Pupils equal, round, reactive to light, normal ocular movement ENT: Moist mucous membranes without oral lesions present NECK: No masses, no bruits, trachea midline RESPIRATORY: Lungs sounds clear to auscultation bilaterally. Respirations even, nonlabored. Currently on room air with oxygen saturation 93%. Strong cough. No chest wall deformities. No clubbing or cyanosis present CARDIOVASCULAR: S1, S2 present. Regular rate and rhythm. Palpable peripheral pulses bilaterally. No edema present. No calf pain or tenderness noted GASTROINTESTINAL: Abdomen soft, nontender, nondistended without masses or organomegaly noted. There is no rebound or guarding present. Active bowel sounds present 4 quadrants. GENITOURINARY: Deferred INTEGUMENTARY: Skin is warm and dry NEUROLOGIC: Cranial nerves II through XII intact, normal coordination, no obvious motor or sensory deficits, speech is normal MUSKULOSKELETAL: Able to move all extremities, strength equal bilaterally, normal posture PSYCHIATRIC: Alert and oriented to person place and time, appropriate affect, intact judgment and insight Results - Labs 11/09/24 06:03 11/09/24 06:03 Abnormal Lab Results - Last 24 Hours (Table) 11/08/24 11/08/24 11/08/24 Range/Units 15:50 15:50 15:50 WBC 11.5 H (3.8-10.6) k/uL RBC 3.62 L (3.80-5.40) m/uL Hgb 10.3 L (11.4-16.0) gm/dL Hct 32.0 L (34.0-46.0) % MCHC (32.0-37.0) g/dL Plt Count 740 H D (150-450) k/uL MPV (9.5-12.2) FL Neutrophils # 8.1 H (1.3-7.7) k/uL Eosinophils # (0.04-0.35) X 10*3/uL PT 9.7 L (10.0-12.5) sec Sodium 136 L (137-145) mmol/L Creatinine (0.6-1.5) mg/dL BUN/Creatinine Ratio (12.00-20.00) Ratio Glucose 106 H (74-99) mg/dL ALT (8-44) U/L Total Protein (6.2-8.2) g/dL Albumin (3.8-4.9) g/dL 11/09/24 11/09/24 Range/Units 06:03 06:03 WBC (3.8-10.6) k/uL RBC 3.31 L (3.80-5.40) m/uL Hgb 9.3 L (11.4-16.0) gm/dL Hct 29.8 L (34.0-46.0) % MCHC 31.2 L (32.0-37.0) g/dL Plt Count 657 H (150-450) k/uL MPV 8.8 L (9.5-12.2) FL Neutrophils # (1.3-7.7) k/uL Eosinophils # 0.60 H (0.04-0.35) X 10*3/uL PT (10.0-12.5) sec Sodium (137-145) mmol/L Creatinine 0.5 L (0.6-1.5) mg/dL BUN/Creatinine Ratio 20.20 H (12.00-20.00) Ratio Glucose (74-99) mg/dL ALT 7 L (8-44) U/L Total Protein 5.5 L (6.2-8.2) g/dL Albumin 3.6 L (3.8-4.9) g/dL Diabetes panel 11/08/24 11/09/24 Range/Units 15:50 06:03 Sodium 136 L 139 (137-145) mmol/L Potassium 4.0 4.0 (3.5-5.1) mmol/L Chloride 103 105 (98-107) mmol/L Carbon Dioxide 28 27.8 (22-30) mmol/L BUN 17 10.1 (7-17) mg/dL Creatinine 0.72 0.5 L (0.52-1.04) mg/dL Glucose 106 H 86 (74-99) mg/dL Calcium 9.6 8.7 (8.4-10.2) mg/dL AST 23 20 (14-36) U/L ALT 9 7 L (4-34) U/L Alkaline Phosphatase 78 74 (38-126) U/L Total Protein 6.4 5.5 L (6.3-8.2) g/dL Albumin 3.9 3.6 L (3.5-5.0) g/dL Calcium panel 11/08/24 11/09/24 Range/Units 15:50 06:03 Calcium 9.6 8.7 (8.4-10.2) mg/dL Albumin 3.9 3.6 L (3.5-5.0) g/dL Pituitary panel 11/08/24 11/09/24 Range/Units 15:50 06:03 Sodium 136 L 139 (137-145) mmol/L Potassium 4.0 4.0 (3.5-5.1) mmol/L Chloride 103 105 (98-107) mmol/L Carbon Dioxide 28 27.8 (22-30) mmol/L BUN 17 10.1 (7-17) mg/dL Creatinine 0.72 0.5 L (0.52-1.04) mg/dL Glucose 106 H 86 (74-99) mg/dL Calcium 9.6 8.7 (8.4-10.2) mg/dL Adrenal panel 11/08/24 11/09/24 Range/Units 15:50 06:03 Sodium 136 L 139 (137-145) mmol/L Potassium 4.0 4.0 (3.5-5.1) mmol/L Chloride 103 105 (98-107) mmol/L Carbon Dioxide 28 27.8 (22-30) mmol/L BUN 17 10.1 (7-17) mg/dL Creatinine 0.72 0.5 L (0.52-1.04) mg/dL Glucose 106 H 86 (74-99) mg/dL Calcium 9.6 8.7 (8.4-10.2) mg/dL Total Bilirubin 0.5 0.3 (0.2-1.3) mg/dL AST 23 20 (14-36) U/L ALT 9 7 L (4-34) U/L Alkaline Phosphatase 78 74 (38-126) U/L Total Protein 6.4 5.5 L (6.3-8.2) g/dL Albumin 3.9 3.6 L (3.5-5.0) g/dL - Imaging Chest x-ray: report reviewed, image reviewed CT scan - chest: report reviewed, image reviewed Assessment and Plan Assessment: Left pneumothorax History of left sided 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 Her case was discussed in detail last night with Dr. Britt by the emergency room physicians, as well again this morning after reviewing chest x- rays and CT scan. Case also discussed with Dr. Cordova. At this time our recommendation is for thoracostomy tube placement which will be done today by Dr. Cordova. Will connect chest tube to continuous wall suction and monitor for pneumothorax resolution. The patient remains asymptomatic, denies any shortness of breath or chest pain. She is oxygenating well on room air. We will have to work to control her pain from the chest tube. Antiemetics for the nausea. Increase activity, ambulate as tolerated. Medical management of other comorbidities per internal medicine, pulmonology. More recommendations to follow. Thank you for this consult, we will continue to follow along and make further recommendations as appropriate. I have personally seen and examined the patient, performed the documentation and the assessment and plan as written. Number of minutes spent on the visit: 30. ELY SkyC
[2024-11-09] MEDS ORDERED: IPRATROPIUM-ALBUTEROL 3 ML NEB INHALATION PRN (10:36)
--- NOTE | 2024-11-09 11:04 | XR ---
EXAMINATION TYPE: XR chest 1V portable DATE OF EXAM: 11/09/2024 10:41 AM COMPARISON: 11/09/2024 CLINICAL INDICATION: Female, 54 years old with history of Post left CT insertion, TECHNIQUE: XR chest 1V portable view(s) obtained. FINDINGS: The heart size is normal. The pulmonary vasculature is normal. Left-sided chest tube is in place. Previous pneumothorax not well visualized. Small amount appears to be present along the upper outer margin There appears to be reinflation of the left lung. There is p ersistence of the mass type density through the left suprahilar region. IMPRESSION: 1. There appears to be a small residual upper outer left lung pneumothorax. There is significant rein flation following left-sided chest tube placement. Continued follow-up recommended. [facility], , 11/09/2024 11:01 AM
[2024-11-09] MEDS: SODIUM CHLORIDE 0.9% 1,000 ML IV SCH (11:37)
[2024-11-09] MEDS: SENNOSIDES-DOCUSATE SODIUM 1 EACH TAB PO SCH (12:18)
[2024-11-09] MEDS: KETOROLAC 15 MG/ML 1 ML VIAL IVP SCH (12:18)
--- NOTE | 2024-11-09 12:18 | PCN ---
PROCEDURE NOTE PROCEDURE: Left chest tube. PREOPERATIVE DIAGNOSIS: Left hemopneumothorax. POSTOPERATIVE DIAGNOSIS: Left hemopneumothorax. TRAFFIC CONTROL OFFICER: Dr. Cordova. ASSISTED BY: Dr. Liz Pagan and also by the 2 residents, Dr. Lowry, and Dr. Franco. The patient's procedure was done in room 522. We used a standard chest tube #28-Estonian chest tube. The patient's skin was cleansed with chlorhexidine. It was sterilely draped. Next, a small 1-inch incision was made parallel to the rib, between the anterior axillary line and mid axillary line, the 5th intercostal space. Blunt forces were used to dissect down into the area between the rib, and a forceps was used then to puncture into the pleural space. There was a whoosh of air, and some blood which exited the pleural space immediately. The #28-Estonian chest tube was inserted apically. It was sutured in place. Sterile dressing was applied. It was connected to a Pleur- evac. It was placed on suction. There was no immediate complication. A chest x-ray was ordered. The patient tolerated the procedure well without complication. MMODL / IJN: [id number] /
[2024-11-09] MEDS ORDERED: TEMAZEPAM 15 MG CAP PO PRN (14:17)
--- NOTE | 2024-11-09 14:25 | P.CNPUL ---
History of Present Illness Consult date: 11/09/24 Requesting physician: Festus E Jimmie Reason for consult: pneumothorax, abnormal CXR/CT Chief complaint: Hydrothorax, hemothorax History of present illness: This is a pleasant 54-year-old female patient with a known history of hypertension, chronic obstructive pulmonary disease from chronic tobacco dependence who had recently been found to have a left upper lobe lesion and had undergone a left upper lobectomy on October 25, 2024. She subsequently recovered and was discharged to home on postoperative day #3. She was seen by Dr. White in our office yesterday who performed a chest x-ray that revealed a left-sided pneumothorax and was sent to the emergency department. A CT scan of the chest revealed a left-sided pneumothorax, moderate left-sided pleural effusion and left lung base atelectasis. White count 8.1. Hemoglobin 9.3. Platelets 657. Sodium 139. Potassium 4.0. Bicarb 28. BUN 10. Creatinine 0.5. Glucose 86. She is seen today in consultation on the regular medical kenny or. She is currently sitting up in bed. Awake and alert in no acute distress. She did have some episodes of nausea secondary to morphine that was given for pain earlier this morning. She is maintaining good O2 saturations in the 90s on room air. She has been afebrile. Hemodynamically stable. She has no pulmonary complaints. Review of Systems REVIEW OF SYSTEMS: CONSTITUTIONAL: Denies any recent significant weight loss or weight gain. EYES: Denies change in vision. EARS, NOSE, MOUTH, THROAT: Denies headaches, denies sore throat. CARDIOVASCULAR: Denies chest pain, palpitations or syncopal episodes. RESPIRATORY: Denies shortness of breath, cough, congestion or hemoptysis. GASTROINTESTINAL: Denies change in appetite, denies abdominal pain GENITOURINARY: Denies hematuria, denies infections. MUSKULOSKELETAL: Denies pain, denies swelling. INTEGUMENTARY: Denies rash, denies eczema. NEUROLOGICAL: Denies recent memory loss, no recent seizure activity. PSYCHIATRIC: Denies anxiety, denies depression. HEMATOLOGIC/LYMPHATIC: Denies anemia, denies enlarged lymph nodes. 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 Left upper lobectomy on October 25, 2024 Past Anesthesia/Blood Transfusion Reactions: No Reported Reaction Additional Past Anesthesia/Blood Transfusion Reaction / Comment(s): no hx. of transfusions Past Psychological History: Anxiety Smoking Status: Former smoker Past Alcohol Use History: None Reported Past Drug Use History: None Reported - Past Family History Mother Family Medical History: Cancer Additional Family Medical History / Comment(s): Colon cancer w/ mets. Father Family Medical History: Myocardial Infarction ([place]) Additional Family Medical History / Comment(s): Cerebral Palsy. Medications and Allergies Home Medications Medication Instructions Recorded Confirmed Type Aspirin EC [Ecotrin Low Dose] 81 mg PO DAILY #0 10/28/24 11/08/24 Rx Ibuprofen [Motrin] 600 mg PO BID-W/MEALS PRN 11/08/24 11/08/24 History Metoprolol Tartrate [Lopressor] 12.5 mg PO BID 11/08/24 11/08/24 History Sennosides-Docusate Sodium 1 tab PO BID PRN 11/08/24 11/08/24 History [Senokot-S] Allergies Allergy/AdvReac Type Severity Reaction Status Date / Time No Known Allergies Allergy Verified 11/08/24 15:29 Physical Exam Vitals: Vital Signs Temp Pulse Pulse Resp BP BP Pulse Ox 11/09/24 13:21 97.9 F 78 19 132/78 95 11/09/24 07:08 96.4 F L 97 20 131/89 93 L 11/09/24 01:15 97.9 F 81 16 113/67 93 L 11/08/24 21:00 20 11/08/24 20:00 97.6 F 82 16 164/79 97 11/08/24 18:15 82 18 133/76 95 11/08/24 17:40 86 18 146/88 96 11/08/24 15:04 97.8 F 93 20 106/73 98 Intake and Output 11/08/24 11/09/24 11/09/24 22:59 06:59 14:59 Other: Voiding Method Toilet Toilet # Voids 3 Weight 47.627 kg GENERAL EXAM: Alert, pleasant 54-year-old female, on room air, comfortable in no apparent distress. HEAD: Normocephalic. EYES: Normal reaction of pupils, equal size. NOSE: Clear with pink turbinates. THROAT: No erythema or exudates. NECK: No masses, no JVD. CHEST: No chest wall deformity. Healing wounds from recent left upper lobectomy. LUNGS: Equal air entry with diminished breath sounds over the left lung base. CVS: S1 and S2 normal with no audible murmur, regular rhythm. ABDOMEN: No hepatosplenomegaly, normal bowel sounds, no guarding or rigidity. SPINE: No scoliosis or deformity SKIN: No rashes CENTRAL NERVOUS SYSTEM: No focal deficits, tone is normal in all 4 extremities. EXTREMITIES: There is no peripheral edema. No clubbing, no cyanosis. Peripheral pulses are intact. Results - Laboratory Findings CBC and BMP: 11/09/24 06:03 11/09/24 06:03 PT/INR, D-dimer PT 9.7 sec (10.0-12.5) L 11/08/24 15:50 INR 0.8 (<1.2) 11/08/24 15:50 Abnormal lab findings: Abnormal Labs 11/08/24 11/08/24 11/08/24 15:50 15:50 15:50 WBC 11.5 H RBC 3.62 L Hgb 10.3 L Hct 32.0 L MCHC Plt Count 740 H D MPV Neutrophils # 8.1 H Eosinophils # PT 9.7 L Sodium 136 L Creatinine BUN/Creatinine Ratio Glucose 106 H ALT Total Protein Albumin 11/09/24 11/09/24 06:03 06:03 WBC RBC 3.31 L Hgb 9.3 L Hct 29.8 L MCHC 31.2 L Plt Count 657 H MPV 8.8 L Neutrophils # Eosinophils # 0.60 H PT Sodium Creatinine 0.5 L BUN/Creatinine Ratio 20.20 H Glucose ALT 7 L Total Protein 5.5 L Albumin 3.6 L - Diagnostic Findings Chest x-ray: image reviewed CT scan - chest: image reviewed Assessment and Plan Assessment: Left sided hemopneumothorax. Status post left-sided chest tube placement today Recent left upper lobectomy secondary to lung mass on October 25, 2023. Large cell neuroendocrine carcinoma Chronic obstructive pulmonary disease Former chronic tobacco dependence Anxiety Hypertension Plan: The patient was seen and evaluated Imaging, labs and medications reviewed Large hemopneumothorax on the left Left-sided chest tube placed by Dr. Cordova today Follow-up chest x-ray x-ray reveals improvement Currently stable and on room air Add incentive spirometer Bronchodilators as needed Increase her activity as tolerated We will continue to follow and make further recommendations based on her clinica l status I have personally seen and examined the patient, performed the documentation and the assessment and plan as written. Number of minutes spent on the visit: 20 Dictation was produced using [employer] dictation software. Please excuse any grammatical, word or spelling errors. Time with Patient: Greater than 30
[2024-11-09 14:30] VITALS: BMI 16.4
[2024-11-09] MEDS: PANTOPRAZOLE 40 MG TABLET PO SCH (14:53)
[2024-11-09] MEDS: HYDROmorphone 0.5 MG/0.5 ML SYRINGE IVP PRN (14:53)
[2024-11-09 17:53] LABS: Appearance,Urine Clear (Clear); Bilirubin,Urine Negative (Negative); Blood,Urine Trace (Negative); Color,Urine Light Yellow; Glucose,Urine (UA) Negative (Negative); Ketones,Urine 1+ (Negative); Leukocyte Esterase,Urine Negative (Negative); Mucus,Urine Occasional /hpf; Nitrite,Urine Negative (Negative); Protein,Urine Negative (Negative); RBC,Urine 1 /hpf (0-5); Specific Gravity,Urine 1.018 (1.001-1.035); Squamous Epithelial Cell,Urine <1 /hpf (0-4); Urobilinogen,Urine <2.0 mg/dL (<2.0); WBC,Urine 3 /hpf (0-5)
[2024-11-09] MEDS: HEPARIN SODIUM,PORCINE 5,000 UNIT/ML 1 ML VIAL SQ SCH (20:34)
--- NOTE | 2024-11-09 23:09 | HP ---
HISTORY AND PHYSICAL CHIEF COMPLAINT: Chest pain, and shortness of breath. HISTORY OF PRESENT ILLNESS: This is a 54-year-old woman with a past medical history of recent robotic-assisted lung surgery for possible lung cancer, neuroendocrine tumor, was complaining of increased shortness of breath with pain. The patient was noted to have left hydropneumothorax. Chest tube drainage was administered by Dr. Cordova. There is no history of any fever, rigors, or chills at this time. PAST MEDICAL HISTORY: Recent lung surgery for lung cancer, history of COPD, hyperlipidemia, large cell neuroendocrine carcinoma. Rest of the history and rest of the chart is also reviewed. HOME MEDICATIONS: Reviewed include metoprolol. Dose and rest of medications reviewed. ALLERGIES: None. FAMILY HISTORY: History of colon cancer. SOCIAL HISTORY: Previous history of smoking. REVIEW OF SYSTEMS: Fourteen-point review of systems is negative except as mentioned earlier. PHYSICAL EXAMINATION: VITAL SIGNS: Pulse 78, blood pressure 132/70, respirations 19. HEENT: Conjunctivae normal. NECK: No JVD. CARDIOVASCULAR: S1, S2. RESPIRATIONS: Breath sounds diminished at the bases. A few scattered rhonchi and crackles. ABDOMEN: Soft. NERVOUS SYSTEM: Nonfocal. LABORATORY DATA: WBC 8.3, hemoglobin is 9.3. ASSESSMENT: 1. Large left hydropneumothorax, status post chest tube drainage. 2. History of recent left upper lobe resection, robotic-assisted with large cell neuroendocrine carcinoma. 3. Chronic obstructive pulmonary disease. 4. Hyperlipidemia. 5. Multiple complex medical issues. RECOMMENDATIONS AND DISCUSSION: This is a 54-year-old woman, who presented with multiple complex medical issues, we will monitor the patient closely. Continue the current management and continue symptomatic treatment. Continue the bronchodilators. Otherwise, I would recommend pain management. Resume the home medications. DVT prophylaxis. Closely follow with Pulmonary and Cardiothoracic Surgery. Prognosis guarded. Further recommendations to follow. MMODL / IJN: [id number] /
--- NOTE | 2024-11-10 07:22 | XR ---
EXAMINATION TYPE: XR chest 1V portable DATE OF EXAM: 11/10/2024 COMPARISON: 11/09/2024 CLINICAL INDICATION: Female, 54 years old with history of Left pneumothorax; TECHNIQUE: Single frontal view of the chest is obtained. FINDINGS: No change in the left chest tube. There is a moderate left apical pneumothorax. The right lung is clear. The pulmonary vasculature is not congested. The heart size is normal. The osseous structures are intact. IMPRESSION: No significant interval change in moderate left apical pneumothorax. Continued follow-up is recommend ed. [facility], , 11/10/2024 7:20 AM
[2024-11-10 09:51] LABS: Basophils # (A) 0.07 X 10*3/uL (0.00-0.10); Basophils % (A) 0.7 %; Eosinophils # (A) 0.28 X 10*3/uL (0.04-0.35); Eosinophils % (A) 2.8 %; HCT 30.4 % (37.2-46.3); HGB 9.7 g/dL (12.0-15.0); Lymphocytes # (A) 1.12 X 10*3/uL (0.90-5.00); Lymphocytes % (A) 11.2 %; MCH 28.7 pg (27.0-32.0); MCHC 31.9 g/dL (32.0-37.0); MCV 89.9 FL (80.0-97.0); Mean Platelet Volume 8.8 FL (9.5-12.2); Monocytes # (A) 0.76 X 10*3/uL (0.20-1.00); Monocytes % (A) 7.6 %; NRBC Per 100 WBC 0 X 10*3/uL (0.00-0.01); Neutrophils # (A) 7.74 X 10*3/uL (1.80-7.70); Neutrophils % (A) 77.2 %; Platelet Count 600 X 10*3/uL (140-440); RBC 3.38 X 10*6/uL (4.10-5.20); RDW 14.4 % (11.5-14.5); WBC 10.02 X 10*3/uL (4.50-10.00)
--- NOTE | 2024-11-10 09:53 | P.PN ---
Subjective Progress Note Date: 11/10/24 Principal diagnosis: Left pneumothorax status post chest tube placement. 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 Remains free from shortness of breath, does have some expected pain at chest tube site. Does complain of continued nausea which is common for this patient. Left-sided chest tube remains present to continuous wall suction, no airleak noticed this morning, 1100 mL drainage present in atrium. Remains on room air, currently sinus rhythm and hemodynamically stable. Discussed with Dr. Cummings. No other new concerns. Objective - Vital Signs Vital signs: Vital Signs Temp 98.7 F 11/10/24 07:25 Pulse 91 11/10/24 07:25 Resp 17 11/10/24 07:25 BP 127/69 11/10/24 07:25 Pulse Ox 96 11/10/24 07:25 FiO2 Intake & Output 11/09/24 11/10/24 11/10/24 18:59 06:59 18:59 Intake Total 1500 590 Output Total 1600 1000 Balance -100 -410 Weight 47.627 kg Intake: Intake, IV Titration 900 Amount Sodium Chloride 0.9% 1, 900 000 ml @ 75 mls/hr IV . [id number] [facility] Rx#:[id number] Oral 600 590 Output: Chest Tube Drainage 1600 1000 Chest Tube Left Posterior 1600 1000 Chest Other: Voiding Method Toilet Toilet # Voids 3 2 - Exam CONSTITUTIONAL: Appears somewhat comfortable, cooperative, no acute distress RESPIRATORY: Lungs sounds diminished on the left. Respirations even, nonlabored. Currently on room air with oxygen saturation 95% CARDIOVASCULAR: S1, S2 present. Regular rate and rhythm, sinus rhythm on telemetry. Palpable peripheral pulses bilaterally. No edema present GASTROINTESTINAL: Abdomen soft, nontender, nondistended. Active bowel sounds present 4 quadrants. Positive nausea GENITOURINARY: Continues to void INTEGUMENTARY: Skin is warm and dry NEUROLOGIC: Cranial nerves II through XII intact MUSKULOSKELETAL: Able to move all extremities, strength equal bilaterally, gait normal PSYCHIATRIC: Alert and oriented to person place and time, appropriate affect, intact judgment and insight INVASIVE LINES AND TUBES: Left pleural chest tube present to continuous wall suction, no airleak noticed this morning, 1100 mL serous output since insertion yesterday - Allied health notes Allied health notes reviewed: nursing - Labs CBC & Chem 7: 11/09/24 06:03 11/09/24 06:03 Labs: Abnormal Lab Results - Last 24 Hours (Table) 11/09/24 Range/Units 17:30 Urine Ketones 1+ H (Negative) Urine Blood Trace H (Negative) Urine Mucus Occasional H (None) /hpf - Imaging and Cardiology Chest x-ray: report reviewed, image reviewed Assessment and Plan Assessment: Left pneumothorax, status post chest tube placement by Dr. 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
--- NOTE | 2024-11-10 10:23 | P.PN ---
Subjective Progress Note Date: 11/10/24 This is a pleasant 54-year-old female patient with a known history of hypertension, chronic obstructive pulmonary disease from chronic tobacco dependence who had recently been found to have a left upper lobe lesion and had undergone a left upper lobectomy on October 25, 2024. She subsequently recovered and was discharged to home on postoperative day #3. She was seen by Dr. White in our office yesterday who performed a chest x-ray that revealed a left-sided pneumothorax and was sent to the emergency department. A CT scan of the chest revealed a left-sided pneumothorax, moderate left-sided pleural effusion and left lung base atelectasis. White count 8.1. Hemoglobin 9.3. Platelets 657. Sodium 139. Potassium 4.0. Bicarb 28. BUN 10. Creatinine 0.5. Glucose 86. She is seen today in consultation on the regular medical floor. She is currently sitting up in bed. Awake and alert in no acute distress. She did have some episodes of nausea secondary to morphine that was given for pain earlier this morning. She is maintaining good O2 saturations in the 90s on room air. She has been afebrile. Hemodynamically stable. She has no pulmonary complaints. The patient is seen today November 10, 2024 in follow-up on the regular medical floor. She is awake and alert in no acute distress. Sitting up in bed. Maintaining good O2 saturations in the mid 90s on room air. She is afebrile. Hemodynamically stable. Follow-up chest x-ray reveals continued moderate left apical pneumothorax. Chest tube remains in place. Positive leak. Continued to Pleur-evac and wall suction. White count 10.0. Hemoglobin 9.7. Platelets 600,000. She remains on DuoNeb inhalations. Heparin for DVT prophylaxis. Pain managed with Dilaudid and Toradol. Normal saline at 75 mL/h. Objective - Vital Signs Vital signs: Vital Signs Temp 98.7 F 11/10/24 07:25 Pulse 91 11/10/24 07:25 Resp 17 11/10/24 07:25 BP 127/69 11/10/24 07:25 Pulse Ox 96 11/10/24 07:25 FiO2 Intake & Output 11/09/24 11/10/24 11/10/24 18:59 06:59 18:59 Intake Total 1500 590 Output Total 1600 1000 Balance -100 -410 Weight 47.627 kg Intake: Intake, IV Titration 900 Amount Sodium Chloride 0.9% 1, 900 000 ml @ 75 mls/hr IV . [id number] [facility] Rx#:[id number] Oral 600 590 Output: Chest Tube Drainage 1600 1000 Chest Tube Left Posterior 1600 1000 Chest Other: Voiding Method Toilet Toilet # Voids 3 2 - Exam GENERAL EXAM: Alert, very thin 54-year-old female, resting in bed, on room air, in no apparent distress. HEAD: Normocephalic. EYES: Normal reaction of pupils, equal size. NOSE: Clear with pink turbinates. THROAT: No erythema or exudates. NECK: No masses, no JVD. CHEST: Left-sided chest tube remains in place to Pleur-evac. Positive leak. Healing wounds from recent left upper lobectomy. LUNGS: Equal air entry with diminished breath sounds over the left lung base. CVS: S1 and S2 normal with no audible murmur, regular rhythm. ABDOMEN: No hepatosplenomegaly, normal bowel sounds, no guarding or rigidity. SPINE: No scoliosis or deformity SKIN: No rashes CENTRAL NERVOUS SYSTEM: No focal deficits, tone is normal in all 4 extremities. EXTREMITIES: There is no peripheral edema. No clubbing, no cyanosis. Peripheral pulses are intact. - Labs CBC & Chem 7: 11/10/24 05:02 11/09/24 06:03 Labs: Abnormal Lab Results - Last 24 Hours (Table) 11/09/24 11/10/24 Range/Units 17:30 05:02 WBC 10.02 H (4.50-10.00) X 10*3/uL RBC 3.38 L (4.10-5.20) X 10*6/uL Hgb 9.7 L (12.0-15.0) g/dL Hct 30.4 L (37.2-46.3) % MCHC 31.9 L (32.0-37.0) g/dL Plt Count 600 H (140-440) X 10*3/uL MPV 8.8 L (9.5-12.2) FL Immature Gran # 0.05 H (0.00-0.04) X 10*3/uL Neutrophils # 7.74 H (1.80-7.70) X 10*3/uL Urine Ketones 1+ H (Negative) Urine Blood Trace H (Negative) Urine Mucus Occasional H (None) /hpf Assessment and Plan Assessment: Left sided hemopneumothorax. Status post left-sided chest tube placement November 09, 2024. Remains to Pleur-evac and wall suction. Positive leak. Still with left apical pneumothorax on today's chest x-ray Recent left upper lobectomy secondary to lung mass on October 25, 2023. Large cell neuroendocrine carcinoma Chronic obstructive pulmonary disease Former chronic tobacco dependence Anxiety Hypertension Plan: The patient was seen and evaluated Chest x-ray, labs and medications reviewed Left apical pneumothorax continues, positive leak Left-sided chest tube placed yesterday CT service following as well Stable and on room air Continue incentive spirometer Bronchodilators as needed Increase her activity as tolerated This patient was seen independently by the pulmonary nurse practitioner addressing pulmonary issues I have personally seen and examined the patient, performed the documentation and the assessment and plan as written. Number of minutes spent on the visit: 25 Dictation was produced using [employer] dictation software. Please excuse any grammatical, word or spelling errors.
[2024-11-10 12:29] LABS: Calcium 8.6 mg/dL (8.7-10.3); Carbon Dioxide 21.8 mmol/L (21.6-31.8); Chloride 105 mmol/L (96-109); Glucose 84 mg/dL (70-110); Potassium 4.3 mmol/L (3.5-5.5); Sodium 137 mmol/L (135-145)
[2024-11-10] MEDS: HYDROcodone/APAP 5-325MG 1 EACH TAB PO PRN (12:37)
[2024-11-10] MEDS: METOCLOPRAMIDE 5 MG/ML 2 ML VIAL IVP PRN (12:38)
[2024-11-10] MEDS: SYMBICORT 160-4.5 MCG INHALER INHALATION SCH (16:09)
[2024-11-10] MEDS: IPRATROPIUM-ALBUTEROL 3 ML NEB INHALATION SCH (16:09)
--- NOTE | 2024-11-11 07:14 | XR ---
Chest, 2 view. HISTORY: Pneumothorax follow-up post left lung lobectomy. COMPARISON: 11/09/2024 TECHNIQUE: PA and lateral views the chest are obtained. FINDINGS: The left hydropneumothorax has resolved. There is a left chest tube the tip of which is in the left m id lung zone. There is stable focal bandlike atelectasis in the left upper lung zone. There is mild e levation of the left hilum and left hemidiaphragm indicating volume loss secondary to the lobectomy. The right lung remains clear. There is no right lung pneumothorax or pleural effusion. The heart and pulmonary vasculature appear normal. The osseous structures are intact. IMPRESSION: 1. Left chest tube and resolution of the previously identified left hydropneumothorax 2. volume loss in the left hemithorax secondary to left lobectomy. 3. No abnormality in the right hemithorax. [facility], , 11/11/2024 7:12 AM
--- NOTE | 2024-11-11 08:08 | P.PN ---
Subjective Progress Note Date: 11/11/24 Principal diagnosis: Left pneumothorax status post chest tube placement. 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 Remains free from shortness of breath, does have some expected pain at chest tube site. Does complain of continued nausea which is common for this patient although better since introduction of Reglan, states that she was able to eat a bit of food yesterday. Left-sided chest tube remains present to continuous wall suction, no airleak noticed this morning when laying flat or sitting up, 300 mL drainage in the last 24 hours. Remains on room air, currently sinus rhythm and hemodynamically stable. Reviewed chest x-ray this morning which was done [facility]. No other new concerns. Objective - Vital Signs Vital signs: Vital Signs Temp 98.3 F 11/11/24 07:22 Pulse 89 11/11/24 07:22 Resp 20 11/11/24 07:22 BP 132/73 11/11/24 07:22 Pulse Ox 97 11/11/24 07:22 FiO2 Intake & Output 11/10/24 11/11/24 11/11/24 18:59 06:59 18:59 Intake Total 900 Output Total 250 Balance -250 900 Intake: Intake, IV Titration 900 Amount Sodium Chloride 0.9% 1, 900 000 ml @ 75 mls/hr IV . [id number] [facility] Rx#:[id number] Output: Chest Tube Drainage 250 Chest Tube Left Posterior 250 Chest Other: Voiding Method Toilet # Voids 2 - Exam CONSTITUTIONAL: Appears somewhat comfortable, cooperative, no acute distress RESPIRATORY: Lungs sounds diminished on the left. Respirations even, nonlabored. Currently on room air with oxygen saturation 95% CARDIOVASCULAR: S1, S2 present. Regular rate and rhythm, sinus rhythm on telemetry. Palpable peripheral pulses bilaterally. No edema present GASTROINTESTINAL: Abdomen soft, nontender, nondistended. Active bowel sounds present 4 quadrants. Positive nausea GENITOURINARY: Continues to void INTEGUMENTARY: Skin is warm and dry NEUROLOGIC: Cranial nerves II through XII intact MUSKULOSKELETAL: Able to move all extremities, strength equal bilaterally, gait normal PSYCHIATRIC: Alert and oriented to person place and time, appropriate affect, intact judgment and insight INVASIVE LINES AND TUBES: Left pleural chest tube present to continuous wall suction, no airleak noticed this morning, 300 mL serous output in the last 24 hours - Allied health notes Allied health notes reviewed: nursing - Labs CBC & Chem 7: 11/10/24 05:02 11/10/24 05:02 Labs: Abnormal Lab Results - Last 24 Hours (Table) 11/10/24 11/10/24 Range/Units 05:02 05:02 WBC 10.02 H (4.50-10.00) X 10*3/uL RBC 3.38 L (4.10-5.20) X 10*6/uL Hgb 9.7 L (12.0-15.0) g/dL Hct 30.4 L (37.2-46.3) % MCHC 31.9 L (32.0-37.0) g/dL Plt Count 600 H (140-440) X 10*3/uL MPV 8.8 L (9.5-12.2) FL Immature Gran # 0.05 H (0.00-0.04) X 10*3/uL Neutrophils # 7.74 H (1.80-7.70) X 10*3/uL Creatinine 0.5 L (0.6-1.5) mg/dL BUN/Creatinine Ratio 28.00 H (12.00-20.00) Ratio Calcium 8.6 L (8.7-10.3) mg/dL - Imaging and Cardiology Chest x-ray: report reviewed, image reviewed Assessment and Plan Assessment: Left pneumothorax, status post chest tube placement by Dr. 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
--- NOTE | 2024-11-11 08:16 | P.PN ---
Subjective Progress Note Date: 11/11/24 This is a pleasant 54-year-old female patient with a known history of hypertension, chronic obstructive pulmonary disease from chronic tobacco dependence who had recently been found to have a left upper lobe lesion and had undergone a left upper lobectomy on October 25, 2024. She subsequently recovered and was discharged to home on postoperative day #3. She was seen by Dr. White in our office yesterday who performed a chest x-ray that revealed a left-sided pneumothorax and was sent to the emergency department. A CT scan of the chest revealed a left-sided pneumothorax, moderate left-sided pleural effusion and left lung base atelectasis. White count 8.1. Hemoglobin 9.3. Platelets 657. Sodium 139. Potassium 4.0. Bicarb 28. BUN 10. Creatinine 0.5. Glucose 86. She is seen today in consultation on the regular medical floor. She is currently sitting up in bed. Awake and alert in no acute distress. She did have some episodes of nausea secondary to morphine that was given for pain earlier this morning. She is maintaining good O2 saturations in the 90s on room air. She has been afebrile. Hemodynamically stable. She has no pulmonary complaints. The patient is seen today November 10, 2024 in follow-up on the regular medical floor. She is awake and alert in no acute distress. Sitting up in bed. Maintaining good O2 saturations in the mid 90s on room air. She is afebrile. Hemodynamically stable. Follow-up chest x-ray reveals continued moderate left apical pneumothorax. Chest tube remains in place. Positive leak. Continued to Pleur-evac and wall suction. White count 10.0. Hemoglobin 9.7. Platelets 600,000. She remains on DuoNeb inhalations. Heparin for DVT prophylaxis. Pain managed with Dilaudid and Toradol. Normal saline at 75 mL/h. The patient is seen today November 11, 2024 in follow-up on the regular medical floor. She is currently resting comfortably in bed. Awake and alert in no acute distress. Maintaining good O2 saturations in the 90s on room air. Today's chest x-ray shows near complete expansion of the left chest pneumothorax. The chest tube has been taken off wall suction and remains to Pleur-evac. No noted leak. She is continued on DuoNeb and elations, Symbicort. Antibiotics in the form of ceftriaxone. Heparin for DVT prophylaxis. Her pain is well-managed. She has 0.9% normal saline at 75 mL/h. Today's labs are pending. Objective - Vital Signs Vital signs: Vital Signs Temp 98.3 F 11/11/24 07:22 Pulse 89 11/11/24 07:22 Resp 20 11/11/24 07:22 BP 132/73 11/11/24 07:22 Pulse Ox 97 11/11/24 07:22 FiO2 Intake & Output 11/10/24 11/11/24 11/11/24 18:59 06:59 18:59 Intake Total 900 Output Total 250 Balance -250 900 Intake: Intake, IV Titration 900 Amount Sodium Chloride 0.9% 1, 900 000 ml @ 75 mls/hr IV . [id number] [facility] Rx#:[id number] Output: Chest Tube Drainage 250 Chest Tube Left Posterior 250 Chest Other: Voiding Method Toilet # Voids 2 - Exam GENERAL EXAM: Alert, thin, pleasant 54-year-old female, on room air, in no apparent distress. HEAD: Normocephalic. EYES: Normal reaction of pupils, equal size. NOSE: Clear with pink turbinates. THROAT: No erythema or exudates. NECK: No masses, no JVD. CHEST: Left-sided chest tube remains in place to Pleur-evac. Currently to waterseal. No noted leak. Healing wounds from recent left upper lobectomy. LUNGS: Equal air entry with diminished breath sounds over the left lung base. CVS: S1 and S2 normal with no audible murmur, regular rhythm. ABDOMEN: No hepatosplenomegaly, normal bowel sounds, no guarding or rigidity. SPINE: No scoliosis or deformity SKIN: No rashes CENTRAL NERVOUS SYSTEM: No focal deficits, tone is normal in all 4 extremities. EXTREMITIES: There is no peripheral edema. No clubbing, no cyanosis. Peripheral pulses are intact. - Labs CBC & Chem 7: 11/10/24 05:02 11/10/24 05:02 Labs: Abnormal Lab Results - Last 24 Hours (Table) 11/10/24 11/10/24 Range/Units 05:02 05:02 WBC 10.02 H (4.50-10.00) X 10*3/uL RBC 3.38 L (4.10-5.20) X 10*6/uL Hgb 9.7 L (12.0-15.0) g/dL Hct 30.4 L (37.2-46.3) % MCHC 31.9 L (32.0-37.0) g/dL Plt Count 600 H (140-440) X 10*3/uL MPV 8.8 L (9.5-12.2) FL Immature Gran # 0.05 H (0.00-0.04) X 10*3/uL Neutrophils # 7.74 H (1.80-7.70) X 10*3/uL Creatinine 0.5 L (0.6-1.5) mg/dL BUN/Creatinine Ratio 28.00 H (12.00-20.00) Ratio Calcium 8.6 L (8.7-10.3) mg/dL Assessment and Plan Assessment: Left sided hemopneumothorax. Status post left-sided chest tube placement November 09, 2024. Today's chest x-ray reveals near complete expansion of the left lung. Chest tube remains to Pleur-evac and now to waterseal. No noted leak. Follow-up chest x-ray pending Recent left upper lobectomy secondary to lung mass on October 25, 2023. Large cell neuroendocrine carcinoma Chronic obstructive pulmonary disease Former chronic tobacco dependence Anxiety Hypertension Plan: The patient was seen and evaluated Chest x-ray and medications reviewed Left chest with near complete resolution, no noted leak Chest tube to wall suction Follow-up chest x-ray pending CT service following Stable and on room air Continue incentive spirometer Bronchodilators as needed This patient was seen independently by the pulmonary nurse practitioner addressing pulmonary issues I have personally seen and examined the patient, performed the documentation and the assessment and plan as written. Number of minutes spent on the visit: 24 Dictation was produced using [employer] dictation software. Please excuse any gra mmatical, word or spelling errors.
--- NOTE | 2024-11-11 09:29 | P.CONS ---
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 and did have an x-ray we did shows left-sided pneumothorax for the patient was sent to the ER patient did have a CT completed in the emergency room with evidence of moderate left-sided effusion and pneumothorax patient on presentation to the hospital was afebrile and no fever have been recorded subsequently patient was nontachycardic hypotensive or hypoxic no need for supplemental oxygen he did have white count of 11.5 with a left shift creatinine 0.72 electrolytes has been normal liver isms are normal urine has been negative patient did have a chest tube placement however no fluid has been sent for culture patient had been complaining of left-sided chest pain mostly dull aching to sharp mild to moderate intensity she also have a cough which is moderate intensity bring up some yellow sputum and did have an episode of vomiting patient was started on ceftriaxone infectious he was consulted today for further management of antibiotic therapy Review of Systems Positive point and negatives has been mentioned in the HPI, complete review of systems was performed and all other systems are negative Past Medical History Past Medical History: Cancer, COPD, Hyperlipidemia, Osteoarthritis (OA) Additional Past Medical History / Comment(s): History of Mobitz type I heart block; 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 Left upper lobectomy on October 25, 2024 Past Anesthesia/Blood Transfusion Reactions: No Reported Reaction Additional Past Anesthesia/Blood Transfusion Reaction / Comm: no hx. of transfusions Past Psychological History: Anxiety Smoking Status: Former smoker Past Alcohol Use History: None Reported Past Drug Use History: None Reported - Past Family History Mother Family Medical History: Cancer Additional Family Medical History / Comment(s): Colon cancer w/ mets. Father Family Medical History: Myocardial Infarction ([place]) Additional Family Medical History / Comment(s): Cerebral Palsy. Medications and Allergies Home Medications Medication Instructions Recorded Confirmed Type Aspirin EC [Ecotrin Low Dose] 81 mg PO DAILY #0 10/28/24 11/08/24 Rx Ibuprofen [Motrin] 600 mg PO BID-W/MEALS PRN 11/08/24 11/08/24 History Metoprolol Tartrate [Lopressor] 12.5 mg PO BID 11/08/24 11/08/24 History Sennosides-Docusate Sodium 1 tab PO BID PRN 11/08/24 11/08/24 History [Senokot-S] Allergies Allergy/AdvReac Type Severity Reaction Status Date / Time No Known Allergies Allergy Verified 11/08/24 15:29 Physical Exam Vitals: Vital Signs Temp Pulse Resp BP Pulse Ox 11/10/24 13:16 98.4 F 94 16 133/68 97 11/10/24 07:25 98.7 F 91 17 127/69 96 11/10/24 01:43 97.9 F 84 16 135/71 95 11/09/24 19:30 97.7 F 87 18 128/77 94 L 11/09/24 14:35 98.6 F 84 16 127/73 Intake and Output 11/09/24 11/10/24 11/10/24 22:59 06:59 14:59 Intake Total 1500 590 Output Total 1050 1000 Balance 450 -410 Intake: Intake, IV Titration 900 Amount Sodium Chloride 0.9% 1, 900 000 ml @ 75 mls/hr IV . [id number] [facility] Rx#:[id number] Oral 600 590 Output: Chest Tube Drainage 1050 1000 Chest Tube Left Posterior 1050 1000 Chest Other: Voiding Method Toilet # Voids 3 2 GENERAL DESCRIPTION: Middle-aged female lying in bed, no distress. No tachypnea or accessory muscle of respiration use. HEENT: Shows Pallor , no scleral icterus. Oral mucous membrane is dry. NECK: Trachea central, no thyromegaly. LUNGS: Unlabored breathing. Decreased breath sounds left base HEART: S1, S2, regular rate and rhythm. No loud murmur ABDOMEN: Soft, no tenderness EXTREMITIES: No edema of feet. SKIN: No rash, no masses palpable. NEUROLOGICAL: The patient is awake, alert, oriented x3, mood and affect normal. Results CBC & Chem 7: 11/10/24 05:02 11/10/24 05:02 Labs: Abnormal Lab Results - Last 24 Hours (Table) 11/09/24 11/10/24 11/10/24 Range/Units 17:30 05:02 05:02 WBC 10.02 H (4.50-10.00) X 10*3/uL RBC 3.38 L (4.10-5.20) X 10*6/uL Hgb 9.7 L (12.0-15.0) g/dL Hct 30.4 L (37.2-46.3) % MCHC 31.9 L (32.0-37.0) g/dL Plt Count 600 H (140-440) X 10*3/uL MPV 8.8 L (9.5-12.2) FL Immature Gran # 0.05 H (0.00-0.04) X 10*3/uL Neutrophils # 7.74 H (1.80-7.70) X 10*3/uL Creatinine 0.5 L (0.6-1.5) mg/dL BUN/Creatinine Ratio 28.00 H (12.00-20.00) Ratio Calcium 8.6 L (8.7-10.3) mg/dL Urine Ketones 1+ H (Negative) Urine Blood Trace H (Negative) Urine Mucus Occasional H (None) /hpf Assessment and Plan (1) Tracheobronchitis Current Visit: Yes Status: Acute Code(s): J40 - BRONCHITIS, NOT SPECIFIED ACUTE OR CHRONIC SNOMED Code(s): 24451413 (2) Leukocytosis Current Visit: Yes Status: Acute Code(s): D72.829 - ELEVATED WHITE BLOOD CELL COUNT, UNSPECIFIED SNOMED Code(s): 299092734 Plan: 1patient presented to hospital with abnormal x-ray concerning for left-sided pneumothorax in this patient who recently did have robotic assisted left upper lobe lobectomy and mediastinal node biopsy now with evidence of left-sided effusion status post left chest tube placement but no culture were done patient has been complaining of cough and is bringing some purulent sputum concerning for purulent tracheobronchitis/pneumonia 2-we will try to obtain sputum for Gram stain and culture 3-continue with Rocephin while waiting for the culture to finalize We will follow on clinical condition and cultures to further adjust medication if needed Thank you for this consultation we will follow the patient along with you Dictation was produced using [employer] dictation software. please excuse any grammatical, word or spelling errors. Time with Patient: Greater than 30
--- NOTE | 2024-11-11 09:30 | PN ---
PROGRESS NOTE DATE OF SERVICE: 11/10/2024 SUBJECTIVE: This 54-year-old woman was admitted after large left hydropneumothorax after surgery, had a chest tube drainage. The patient has significant amount of copious mucopurulent expectoration at this time. The white count is mildly elevated. I would recommend a short course of antibiotics at this time. PAST MEDICAL HISTORY: Reviewed. REVIEW OF SYSTEMS: 14-point review is done. CURRENT MEDICATIONS: Reviewed. PHYSICAL EXAMINATION: VITAL SIGNS: Pulse 94, blood pressure 130/60, respirations 16. CHEST: Few scattered rhonchi. Chest tube present. ABDOMEN: Soft. LABORATORY DATA: WBC 10.02. ASSESSMENT: 1. Large left hydropneumothorax, status post chest tube drainage. 2. Severe acute tracheobronchitis, rule out pneumonia. 3. History of recent left upper lobe resection, robotic-assisted, with large cell neuroendocrine carcinoma. 4. Chronic obstructive pulmonary disease. 5. Hyperlipidemia. 6. Multiple complex medical issues. RECOMMENDATIONS: Continue current medications and continue symptomatic treatment. Otherwise, I would also recommend a short course of antibiotics, Infectious Disease evaluation, and continue to monitor. Prognosis guarded because of multiple complex medical issues, and further recommendations to follow. See order for details. We will obtain the blood and urine culture. Repeat labs will be ordered, and the patient will be given bronchodilators also. Recommendations to follow. MMODL / IJN: [id number] /
[2024-11-11 09:39] LABS: Basophils # (A) 0.08 X 10*3/uL (0.00-0.10); Basophils % (A) 1.1 %; Eosinophils # (A) 0.23 X 10*3/uL (0.04-0.35); Eosinophils % (A) 3.1 %; HGB 9.7 g/dL (12.0-15.0); Lymphocytes # (A) 1.34 X 10*3/uL (0.90-5.00); Lymphocytes % (A) 17.8 %; MCHC 32.3 g/dL (32.0-37.0); MCV 89.6 FL (80.0-97.0); Monocytes # (A) 0.68 X 10*3/uL (0.20-1.00); NRBC Per 100 WBC 0 X 10*3/uL (0.00-0.01); Neutrophils # (A) 5.19 X 10*3/uL (1.80-7.70); Neutrophils % (A) 68.7 %; Platelet Count 578 X 10*3/uL (140-440); RBC 3.35 X 10*6/uL (4.10-5.20); RDW 14.2 % (11.5-14.5); WBC 7.54 X 10*3/uL (4.50-10.00)
[2024-11-11 09:45] LABS: Blood Urea Nitrogen 13.4 mg/dL (9.0-27.0); Calcium 8.6 mg/dL (8.7-10.3); Carbon Dioxide 22.9 mmol/L (21.6-31.8); Chloride 105 mmol/L (96-109); Glucose 65 mg/dL (70-110); Sodium 139 mmol/L (135-145)
--- NOTE | 2024-11-11 15:31 | P.PN ---
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 On today's evaluation that is 11/11/2024, Patient is afebrile patient is currently on room air and denies having any shortness of breath, the patient chest pain is currently controlled she did have a cough but not bringing up any sputum no nausea vomiting abdominal pain or diarrhea wbc 7.54. Cr 0.5 Objective - Vital Signs Vital signs: Vital Signs Temp 98.3 F 11/11/24 07:22 Pulse 89 11/11/24 07:22 Resp 20 11/11/24 07:22 BP 132/73 11/11/24 07:22 Pulse Ox 97 11/11/24 07:22 FiO2 Intake & Output 11/10/24 11/11/24 11/11/24 18:59 06:59 18:59 Intake Total 900 Output Total 250 Balance -250 900 Intake: Intake, IV Titration 900 Amount Sodium Chloride 0.9% 1, 900 000 ml @ 75 mls/hr IV . [id number] [facility] Rx#:[id number] Output: Chest Tube Drainage 250 Chest Tube Left Posterior 250 Chest Other: Voiding Method Toilet # Voids 2 - Exam GENERAL DESCRIPTION: middle age female lying in bed in no distress RESPIRATORY SYSTEM: Unlabored breathing , decreased breath sounds at bases HEART: S1 S2 regular rate and rhythm , ABDOMEN: Soft , no tenderness EXTREMITIES: No edema feet - Labs CBC & Chem 7: 11/11/24 05:02 11/11/24 05:02 Labs: Abnormal Lab Results - Last 24 Hours (Table) 11/10/24 11/10/24 Range/Units 05:02 05:02 WBC 10.02 H (4.50-10.00) X 10*3/uL RBC 3.38 L (4.10-5.20) X 10*6/uL Hgb 9.7 L (12.0-15.0) g/dL Hct 30.4 L (37.2-46.3) % MCHC 31.9 L (32.0-37.0) g/dL Plt Count 600 H (140-440) X 10*3/uL MPV 8.8 L (9.5-12.2) FL Immature Gran # 0.05 H (0.00-0.04) X 10*3/uL Neutrophils # 7.74 H (1.80-7.70) X 10*3/uL Creatinine 0.5 L (0.6-1.5) mg/dL BUN/Creatinine Ratio 28.00 H (12.00-20.00) Ratio Calcium 8.6 L (8.7-10.3) mg/dL Assessment and Plan (1) Tracheobronchitis Current Visit: Yes Status: Acute Code(s): J40 - BRONCHITIS, NOT SPECIFIED ACUTE OR CHRONIC SNOMED Code(s): 52422617 (2) Leukocytosis Current Visit: Yes Status: Acute Code(s): D72.829 - ELEVATED WHITE BLOOD CELL COUNT, UNSPECIFIED SNOMED Code(s): 402737403 Plan: 1patient presented to hospital with abnormal x-ray concerning for left-sided pneumothorax in this patient who recently did have robotic assisted left upper lobe lobectomy and mediastinal node biopsy now with evidence of left-sided effusion status post left chest tube placement but no culture were done patient has been complaining of cough and is bringing some purulent sputum concerning for purulent tracheobronchitis/pneumonia 2-we will try to obtain sputum for Gram stain and culture 3-Pt wbc normalized , will continue with Rocephin while waiting for the culture to finalize Dictation was produced using [employer] dictation software. please excuse any grammatical, word or spelling errors. Time with Patient: Less than 30
[2024-11-11] MEDS: polyethylene glycoL 3350 17 GM POWD.PACK PO STA (18:27)
--- NOTE | 2024-11-12 04:42 | PN ---
PROGRESS NOTE DATE OF SERVICE: 11/11/2024 SUBJECTIVE: This is a 54-year-old woman, who was admitted with large left hydropneumothorax, had a chest tube drainage. The patient also had tracheobronchitis also. Most recent chest x- ray was noted. Procalcitonin is normal. The patient has cough and pamella blood in sputum. Sputum cultures are pending. PAST MEDICAL HISTORY: Reviewed. REVIEW OF SYSTEMS: A 14-point review of systems is negative except as mentioned earlier CURRENT MEDICATIONS: Reviewed. PHYSICAL EXAMINATION: VITAL SIGNS: Pulse is 96, blood pressure 110/77, respirations 18. CHEST: A few scattered rhonchi and crackles. ABDOMEN: Soft. NERVOUS SYSTEM: Nonfocal. LUNGS: Chest tube present. LABORATORY DATA: Hemoglobin 9.7, white count is 7.5 for today. ASSESSMENT: 1. Large left hydropneumothorax, status post chest tube drainage. 2. Severe acute tracheobronchitis purulent, pneumonia ruled out. 3. History of recent left upper lobe resection, robotic-assisted with large cell neuroendocrine carcinoma. 4. Chronic obstructive pulmonary disease. 5. Hyperlipidemia. 6. Multiple complex medical issues. RECOMMENDATIONS: Recommend to continue current medications and continue symptomatic treatment. Continue with chest tube drainage. Continue empiric antibiotics. Continue with repeat labs. Closely monitor. Prognosis guarded. Further recommendations to follow. MMODL / IJN: [id number] /
--- NOTE | 2024-11-12 07:00 | XR ---
EXAMINATION TYPE: XR chest 2V DATE OF EXAM: 11/12/2024 6:33 AM COMPARISON: Chest radiographs from 11/11/2024 TECHNIQUE: XR chest 2V Frontal and lateral views of the chest. CLINICAL INDICATION:Female, 54 years old with history of Volume loss after lobectomy; FINDINGS: Lungs/Pleura: Postsurgical changes from left lobectomy with stable position of chest tube in similar volume loss. Stable focal bandlike atelectasis within the left upper lung zone. No sizable pneumothor ax identified. No pleural effusion. Right apical pleural-parenchymal scarring. Pulmonary vascularity: Unremarkable. Heart/mediastinum: Cardiomediastinal silhouette is stable. Atherosclerotic calcifications are seen i n the aorta. Musculoskeletal: No acute osseous pathology. IMPRESSION: Overall stable examination from left lobectomy with no sizable pneumothorax or hydronephrosis. Left c hest tube is in stable position. [facility], , 11/12/2024 6:58 AM
--- NOTE | 2024-11-12 08:32 | P.PN ---
Subjective Progress Note Date: 11/12/24 Principal diagnosis: Left pneumothorax status post chest tube placement. 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 Remains free from shortness of breath, does have some expected pain at chest tube site. States nausea has gotten better and has used last antiemetics. Left-sided chest tube remains present to [facility] for 24 hours, no airleak noticed this morning when laying flat or sitting up. Remains on room air, currently sinus rhythm and hemodynamically stable. Reviewed chest x-ray this morning, lung appears expanded. No other new concerns. Objective - Vital Signs Vital signs: Vital Signs Temp 98.3 F 11/12/24 01:15 Pulse 84 11/12/24 01:15 Resp 17 11/12/24 01:15 BP 133/65 11/12/24 01:15 Pulse Ox 97 11/12/24 01:15 FiO2 Intake & Output 11/11/24 11/12/24 11/12/24 18:59 06:59 18:59 Intake Total 540 Output Total 0 0 Balance 540 0 Intake: Oral 540 Output: Chest Tube Drainage 0 Chest Tube Left Posterior 0 Chest Stool 0 Other: Voiding Method Toilet # Voids 3 0 - Exam CONSTITUTIONAL: Appears comfortable, cooperative, no acute distress RESPIRATORY: Lungs sounds diminished in the bases bilaterally. Respirations even, nonlabored. Currently on room air with oxygen saturation 97% CARDIOVASCULAR: S1, S2 present. Regular rate and rhythm, sinus rhythm on telemetry. Palpable peripheral pulses bilaterally. No edema present GASTROINTESTINAL: Abdomen soft, nontender, nondistended. Active bowel sounds present 4 quadrants. Positive nausea GENITOURINARY: Continues to void INTEGUMENTARY: Skin is warm and dry NEUROLOGIC: Cranial nerves II through XII intact MUSKULOSKELETAL: Able to move all extremities, strength equal bilaterally, gait normal PSYCHIATRIC: Alert and oriented to person place and time, appropriate affect, intact judgment and insight INVASIVE LINES AND TUBES: Left pleural chest tube present to water seal, no airleak noticed this morning - Allied health notes Allied health notes reviewed: nursing - Labs CBC & Chem 7: 11/11/24 05:02 11/11/24 05:02 Labs: Abnormal Lab Results - Last 24 Hours (Table) 11/11/24 11/11/24 Range/Units 05:02 05:02 RBC 3.35 L (4.10-5.20) X 10*6/uL Hgb 9.7 L (12.0-15.0) g/dL Hct 30.0 L (37.2-46.3) % Plt Count 578 H (140-440) X 10*3/uL MPV 9.0 L (9.5-12.2) FL Creatinine 0.5 L (0.6-1.5) mg/dL BUN/Creatinine Ratio 26.80 H (12.00-20.00) Ratio Glucose 65 L (70-110) mg/dL Calcium 8.6 L (8.7-10.3) mg/dL Microbiology - Last 24 Hours (Table) 11/10/24 13:19 Blood Culture - Preliminary Blood - Imaging and Cardiology Chest x-ray: report reviewed, image reviewed Assessment and Plan Assessment: Left pneumothorax, status post chest tube placement by Dr. Cordova History of left sided lung cancer consistent with large cell neuroendocrine carcinoma, status post left upper lobectomy 10/25/2024 Tobacco dependence with recent cessation COPD Hyperlipidemia Mobitz type I heart block Osteoarthritis Plan: Continue chest tube. Repeat chest x-ray in the couple of hours. If stable patient may be discharged to home from cardiothoracic surgery standpoint. Patient already has a follow-up appointment with Dr. Llanos November 22. Will place on discharge plan Encourage incentive spirometry use Increase activity as tolerated Medical management of other comorbidities per internal medicine, pulmonology More recommendations to follow
[2024-11-12 08:47] LABS: Blood Urea Nitrogen 13.8 mg/dL (9.0-27.0); Carbon Dioxide 18.6 mmol/L (21.6-31.8); Chloride 105 mmol/L (96-109); Glucose 54 mg/dL (70-110); Potassium 4.1 mmol/L (3.5-5.5); Sodium 139 mmol/L (135-145)
[2024-11-12 08:48] LABS: Calcium 8.7 mg/dL (8.7-10.3)
--- NOTE | 2024-11-12 09:10 | P.CONS ---
History of Present Illness - Reason for Consult Consult date: 11/11/24 malignancy Requesting physician: Julian Corbett - Chief Complaint pneumothorax - History of Present Illness Ms August is a 54 year old female who follows with Dr. Dobson. She has a long- standing history of smoking. The patient had low-dose screening chest CT done on 07/17/24. This showed a lobulated mass in the left upper lobe, measuring proximity to my 1.5 cm. There was another indeterminate 3 mm nodule seen in the lingula. The patient therefore had a PET scan on 08/05/24. This showed suspicious uptake in this area. The mass was felt to be either bilobed, or very close addition masses. Upper portion measured 1.15 x 2 cm, where the lower component measured 1.2 x 1.6 cm. Mean SUV was 8.4 for the upper portion and 5.6 for the lower portion. The patient was initially referred for a biopsy with interventional radiology but states that that was canceled and she was subsequently referred to pulmonary medicine and to our clinic. The patient was referred to thoracic surgery, as she appeared to be a candidate for resection upfront, without a biopsy. She had MRI of the brain done, that was negative. The patient was felt to be an appropriate candidate for surgery and had left upper lobectomy with lymph node sampling on 10/25/24. She tolerated surgery well without any untoward postoperative complications. It was discussed with the patient that based on the surgical stage, a decision regarding the need for adjuvant therapy will be made. Typically if the tumor is non-small cell type, less than 4 cm, without visceral pleural or lymph node involvement, with clear margins, then adjuvant therapy would not provide additional benefit. 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 Patient was sent to the ER by Dr. Bush, after chest x-ray revealed left-sided pneumothorax. Pt denies SOB, or chest pain. Chest CT was completed in the emergency room revealing left-sided pneumothorax, moderate left-sided pleural effusion, and left lung base density consistent with atelectasis. CTS was consulted and chest tube was placed. Repeat CXR showing resolution of left hydropneumothorax. At todays visit, pt reporting she is feeling well, denies SOB and chest pain. 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 Left upper lobectomy on October 25, 2024 Past Anesthesia/Blood Transfusion Reactions: No Reported Reaction Additional Past Anesthesia/Blood Transfusion Reaction / Comm: no hx. of transfusions Past Psychological History: Anxiety Smoking Status: Former smoker Past Alcohol Use History: None Reported Past Drug Use History: None Reported - Past Family History Mother Family Medical History: Cancer Additional Family Medical History / Comment(s): Colon cancer w/ mets. Father Family Medical History: Myocardial Infarction (CA) Additional Family Medical History / Comment(s): Cerebral Palsy. Medications and Allergies Home Medications Medication Instructions Recorded Confirmed Type Aspirin EC [Ecotrin Low Dose] 81 mg PO DAILY #0 10/28/24 11/08/24 Rx Ibuprofen [Motrin] 600 mg PO BID-W/MEALS PRN 11/08/24 11/08/24 History Metoprolol Tartrate [Lopressor] 12.5 mg PO BID 11/08/24 11/08/24 History Sennosides-Docusate Sodium 1 tab PO BID PRN 11/08/24 11/08/24 History [Senokot-S] Allergies Allergy/AdvReac Type Severity Reaction Status Date / Time No Known Allergies Allergy Verified 11/08/24 15:29 Physical Exam Vitals: Vital Signs Temp Pulse Resp BP BP Pulse Ox 11/11/24 12:54 98.4 F 86 16 135/71 98 11/11/24 07:22 98.3 F 89 20 132/73 97 11/11/24 02:00 98.1 F 96 18 127/76 95 11/10/24 19:25 98.3 F 86 20 139/80 97 Intake and Output 11/10/24 11/11/24 11/11/24 22:59 06:59 14:59 Intake Total 900 Output Total 250 Balance -250 900 Intake: Intake, IV Titration 900 Amount Sodium Chloride 0.9% 1, 900 000 ml @ 75 mls/hr IV . [id number] [facility] Rx#:[id number] Output: Chest Tube Drainage 250 Chest Tube Left Posterior 250 Chest Other: Voiding Method Toilet # Voids 2 - Constitutional General appearance: no acute distress - EENT Eyes: anicteric sclerae, EOMI ENT: hearing grossly normal - Respiratory diminished lung sounds left mid and lower lung - Cardiovascular Rhythm: regular - Gastrointestinal General gastrointestinal: soft - Integumentary Integumentary: no cyanotic, no jaundiced - Neurologic Neurologic: CNII-XII intact - Musculoskeletal Musculoskeletal: strength equal bilaterally - Psychiatric Psychiatric: A&O x's 3 Results CBC & Chem 7: 11/11/24 05:02 11/12/24 04:41 Labs: Abnormal Lab Results - Last 24 Hours (Table) 11/11/24 11/11/24 Range/Units 05:02 05:02 RBC 3.35 L (4.10-5.20) X 10*6/uL Hgb 9.7 L (12.0-15.0) g/dL Hct 30.0 L (37.2-46.3) % Plt Count 578 H (140-440) X 10*3/uL MPV 9.0 L (9.5-12.2) FL Creatinine 0.5 L (0.6-1.5) mg/dL BUN/Creatinine Ratio 26.80 H (12.00-20.00) Ratio Glucose 65 L (70-110) mg/dL Calcium 8.6 L (8.7-10.3) mg/dL Chest x-ray: report reviewed CT scan - chest: report reviewed Assessment and Plan (1) Large cell neuroendocrine carcinoma Current Visit: Yes Status: Acute Priority: High Code(s): C7A.1 - MALIGNANT POORLY DIFFERENTIATED NEUROENDOCRINE TUMORS SNOMED Code(s): 063837628 (2) Pleural effusion Current Visit: Yes Status: Acute Priority: High Code(s): J90 - PLEURAL EFFUSION, NOT ELSEWHERE CLASSIFIED SNOMED Code(s): 48942083 (3) Postoperative pneumothorax Current Visit: Yes Status: Acute Priority: High Code(s): J95.811 - POSTPROCEDURAL PNEUMOTHORAX SNOMED Code(s): 85254058 Plan: Pneumothorax: Patient was sent to the ER by Dr. Bush, after chest x-ray revealed left-sided pneumothorax. S/p left upper lobectomy on 10/25/24. -Chest CT was completed in the emergency room revealing left-sided pneumothorax, moderate left-sided pleural effusion, and left lung base density consistent with atelectasis. -CTS was consulted and chest tube was placed. Repeat CXR showing resolution of left hydropneumothorax -Defer management to cardiothoracic surgery Large cell neuroendocrine carcinoma: -Oncology history as dictated in the HPI -The patient was referred to thoracic surgery, as she appeared to be a candidate for resection upfront, without a biopsy. The patient was felt to be an appropriate candidate for surgery and had left upper lobectomy with lymph node sampling on 10/25/24. 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 Dobson. Will further discuss findings and treatment recommendations
[2024-11-12 10:01] LABS: Basophils # (A) 0.07 X 10*3/uL (0.00-0.10); Basophils % (A) 1.2 %; Eosinophils # (A) 0.15 X 10*3/uL (0.04-0.35); Eosinophils % (A) 2.5 %; HCT 33.1 % (37.2-46.3); HGB 10.2 g/dL (12.0-15.0); Lymphocytes # (A) 1.11 X 10*3/uL (0.90-5.00); Lymphocytes % (A) 18.8 %; MCH 28.2 pg (27.0-32.0); MCHC 30.8 g/dL (32.0-37.0); MCV 91.4 FL (80.0-97.0); Mean Platelet Volume 9.5 FL (9.5-12.2); Monocytes % (A) 10.2 %; NRBC Per 100 WBC 0 X 10*3/uL (0.00-0.01); Neutrophils # (A) 3.94 X 10*3/uL (1.80-7.70); Platelet Count 615 X 10*3/uL (140-440); RBC 3.62 X 10*6/uL (4.10-5.20); RDW 14.2 % (11.5-14.5); WBC 5.89 X 10*3/uL (4.50-10.00)
--- NOTE | 2024-11-12 12:48 | XR ---
EXAMINATION TYPE: XR chest 2V DATE OF EXAM: 11/12/2024 12:42 PM COMPARISON: Chest radiographs from earlier today. TECHNIQUE: XR chest 2V Frontal and lateral views of the chest. CLINICAL INDICATION:Female, 54 years old with history of post chest tube removal; FINDINGS: Lungs/Pleura: Post surgical changes from left lobectomy with volume loss and elevation of the left he midiaphragm. Interval removal left chest tube. No sizable pneumothorax identified. No pleural effusio n. Similar bandlike atelectasis within the left upper lung. Pulmonary vascularity: Unremarkable. Heart/mediastinum: Cardiomediastinal silhouette is unremarkable. Atherosclerotic calcifications are seen in the aorta. Musculoskeletal: No acute osseous pathology. IMPRESSION: Postsurgical changes from left lobectomy with interval removal of chest tube without sizable pneumoth orax. Similar left upper lung bandlike atelectasis. [facility], , 11/12/2024 12:46 PM
--- NOTE | 2024-11-12 16:25 | P.PN ---
Subjective Progress Note Date: 11/12/24 This is a pleasant 54-year-old female patient with a known history of hypertension, chronic obstructive pulmonary disease from chronic tobacco dependence who had recently been found to have a left upper lobe lesion and had undergone a left upper lobectomy on October 25, 2024. She subsequently recovered and was discharged to home on postoperative day #3. She was seen by Dr. White in our office yesterday who performed a chest x-ray that revealed a left-sided pneumothorax and was sent to the emergency department. A CT scan of the chest revealed a left-sided pneumothorax, moderate left-sided pleural effusion and left lung base atelectasis. White count 8.1. Hemoglobin 9.3. Platelets 657. Sodium 139. Potassium 4.0. Bicarb 28. BUN 10. Creatinine 0.5. Glucose 86. She is seen today in consultation on the regular medical floor. She is currently sitting up in bed. Awake and alert in no acute distress. She did have some episodes of nausea secondary to morphine that was given for pain earlier this morning. She is maintaining good O2 saturations in the 90s on room air. She has been afebrile. Hemodynamically stable. She has no pulmonary complaints. The patient is seen today November 10, 2024 in follow-up on the regular medical floor. She is awake and alert in no acute distress. Sitting up in bed. Maintaining good O2 saturations in the mid 90s on room air. She is afebrile. Hemodynamically stable. Follow-up chest x-ray reveals continued moderate left apical pneumothorax. Chest tube remains in place. Positive leak. Continued to Pleur-evac and wall suction. White count 10.0. Hemoglobin 9.7. Platelets 600,000. She remains on DuoNeb inhalations. Heparin for DVT prophylaxis. Pain managed with Dilaudid and Toradol. Normal saline at 75 mL/h. The patient is seen today November 11, 2024 in follow-up on the regular medical floor. She is currently resting comfortably in bed. Awake and alert in no acute distress. Maintaining good O2 saturations in the 90s on room air. Today's chest x-ray shows near complete expansion of the left chest pneumothorax. The chest tube has been taken off wall suction and remains to Pleur-evac. No noted leak. She is continued on DuoNeb and elations, Symbicort. Antibiotics in the form of ceftriaxone. Heparin for DVT prophylaxis. Her pain is well-managed. She has 0.9% normal saline at 75 mL/h. Today's labs are pending. On 11/12/2024 for a follow-up. The patient presented to us with a left-sided hydropneumothorax and the patient had a left-sided chest tube inserted with successful reexpansion of the left lung. Earlier this morning, left-sided chest tube was removed. Subsequent chest x-ray that was done at around noontime shows no evidence of any pneumothorax. Some atelectatic changes in the left upper lung field area and no residual pneumothorax. She is on room air oxygen. Denies having any significant shortness of breath. Noted the patient had a left upper lobectomy on 10/25/2024. She is known to have COPD. Final pathology was consistent with large cell neuroendocrine carcinoma T2 a N0 M0 disease. She is a chronic smoker. No new complaints otherwise for now. Labs from today shows a white cell count of 5.8, hemoglobin of 10 and sodium of 139, BUN is 13 with a creatinine of 0.5. Procalcitonin level is at 0.05 Objective - Vital Signs Vital signs: Vital Signs Temp 98.3 F 11/12/24 12:39 Pulse 86 11/12/24 12:39 Resp 19 11/12/24 12:39 BP 149/73 11/12/24 12:39 Pulse Ox 97 11/12/24 12:39 FiO2 Intake & Output 11/11/24 11/12/24 11/12/24 18:59 06:59 18:59 Intake Total 540 900 Output Total 0 0 Balance 540 900 Intake: Intake, IV Titration 900 Amount Sodium Chloride 0.9% 1, 900 000 ml @ 75 mls/hr IV . [id number] [facility] Rx#:[id number] Oral 540 Output: Chest Tube Drainage 0 Chest Tube Left Posterior 0 Chest Stool 0 Other: Voiding Method Toilet # Voids 3 0 - Exam GENERAL EXAM: Alert, thin, pleasant 54-year-old female, on room air, in no apparent distress. HEAD: Normocephalic. EYES: Normal reaction of pupils, equal size. NOSE: Clear with pink turbinates. THROAT: No erythema or exudates. NECK: No masses, no JVD. CHEST:No noted leak. Healing wounds from recent left upper lobectomy. LUNGS: Equal air entry with diminished breath sounds over the left lung base. CVS: S1 and S2 normal with no audible murmur, regular rhythm. ABDOMEN: No hepatosplenomegaly, normal bowel sounds, no guarding or rigidity. SPINE: No scoliosis or deformity SKIN: No rashes CENTRAL NERVOUS SYSTEM: No focal deficits, tone is normal in all 4 extremities. EXTREMITIES: There is no peripheral edema. No clubbing, no cyanosis. Peripheral pulses are intact. - Labs CBC & Chem 7: 11/12/24 04:41 11/12/24 04:41 Labs: Abnormal Lab Results - Last 24 Hours (Table) 11/12/24 11/12/24 Range/Units 04:41 04:41 RBC 3.62 L (4.10-5.20) X 10*6/uL Hgb 10.2 L (12.0-15.0) g/dL Hct 33.1 L (37.2-46.3) % MCHC 30.8 L (32.0-37.0) g/dL Plt Count 615 H (140-440) X 10*3/uL Carbon Dioxide 18.6 L (21.6-31.8) mmol/L Anion Gap 15.40 H (4.00-12.00) mmol/L Creatinine 0.5 L (0.6-1.5) mg/dL BUN/Creatinine Ratio 27.60 H (12.00-20.00) Ratio Glucose 54 L (70-110) mg/dL Microbiology - Last 24 Hours (Table) 11/10/24 13:19 Blood Culture - Preliminary Blood Assessment and Plan Plan: Left sided hemopneumothorax. Status post left-sided chest tube placement November 09, 2024. Today's chest x-ray reveals near complete expansion of the left lung. Chest tube removed and follow-up chest x-ray showed no residual pneumothorax post chest tube removal left upper lobectomy secondary to lung mass on October 25, 2023. Large cell neuroendocrine carcinoma, stage T2a N0 M0 Chronic obstructive pulmonary disease Former chronic tobacco dependence Anxiety Hypertension Plan: Chest tube removed Follow-up chest x-ray, no PTX Stable and on room air Continue incentive spirometer Bronchodilators as needed possible home today to be followed up on outpatient basis
[2024-11-12 19:57] VITALS: RESP 16
[2024-11-13 07:35] VITALS: BP 130/71; PULSE 93; TEMP 98
--- NOTE | 2024-11-13 14:24 | P.PN ---
Subjective Progress Note Date: 11/12/24 Principal diagnosis: reason for follow up Pneumonia Patient is a 54-year-old female with a past medical history significant for COPD hyperlipidemia osteoarthritis left upper lobe cancer/large cell neuroendocrine carcinoma, in this patient who is status post left upper lobe lobectomy on 10/25/2024 along with mediastinal lymph node dissection presented back to the hospital with evidence of left-sided hydropneumothorax status post chest tube placement. On today's evaluation that is 11/12/2024, patient has been afebrile, patient is breathing comfortably and is currently on room air, patient denies having any significant cough no chest pain and the chest tube is out, patient denies nausea vomiting or diarrhea and no abdominal pain. Patient white count is 5.89, creatinine 0.5 blood and sputum cultures currently pending Objective - Vital Signs Vital signs: Vital Signs Temp 98.3 F 11/12/24 12:39 Pulse 86 11/12/24 12:39 Resp 19 11/12/24 12:39 BP 149/73 11/12/24 12:39 Pulse Ox 97 11/12/24 12:39 FiO2 Intake & Output 11/11/24 11/12/24 11/12/24 18:59 06:59 18:59 Intake Total 540 900 Output Total 0 0 Balance 540 900 Intake: Intake, IV Titration 900 Amount Sodium Chloride 0.9% 1, 900 000 ml @ 75 mls/hr IV . [id number] [facility] Rx#:[id number] Oral 540 Output: Chest Tube Drainage 0 Chest Tube Left Posterior 0 Chest Stool 0 Other: Voiding Method Toilet # Voids 3 0 - Exam GENERAL DESCRIPTION: middle age female lying in bed in no distress RESPIRATORY SYSTEM: Unlabored breathing , decreased breath sounds at bases HEART: S1 S2 regular rate and rhythm , ABDOMEN: Soft , no tenderness EXTREMITIES: No edema feet - Labs CBC & Chem 7: 11/12/24 04:41 11/12/24 04:41 Labs: Abnormal Lab Results - Last 24 Hours (Table) 11/12/24 11/12/24 Range/Units 04:41 04:41 RBC 3.62 L (4.10-5.20) X 10*6/uL Hgb 10.2 L (12.0-15.0) g/dL Hct 33.1 L (37.2-46.3) % MCHC 30.8 L (32.0-37.0) g/dL Plt Count 615 H (140-440) X 10*3/uL Carbon Dioxide 18.6 L (21.6-31.8) mmol/L Anion Gap 15.40 H (4.00-12.00) mmol/L Creatinine 0.5 L (0.6-1.5) mg/dL BUN/Creatinine Ratio 27.60 H (12.00-20.00) Ratio Glucose 54 L (70-110) mg/dL Microbiology - Last 24 Hours (Table) 11/10/24 13:19 Blood Culture - Preliminary Blood Assessment and Plan (1) Tracheobronchitis Status: Acute Code(s): J40 - BRONCHITIS, NOT SPECIFIED ACUTE OR CHRONIC SNOMED Code(s): 18907606 (2) Leukocytosis Status: Acute Code(s): D72.829 - ELEVATED WHITE BLOOD CELL COUNT, UNSPECIFIED SNOMED Code(s): 924699833 Plan: 1patient presented to hospital with abnormal x-ray concerning for left-sided pneumothorax in this patient who recently did have robotic assisted left upper lobe lobectomy and mediastinal node biopsy now with evidence of left-sided effusion status post left chest tube placement but no culture were done patient has been complaining of cough and is bringing some purulent sputum concerning for purulent tracheobronchitis/pneumonia 2-patient blood and urine culture currently pending seem to have shown some clinical improvement white count is normalized, will continue with Rocephin while waiting for the culture to finalize to determine discharge antibiotics Dictation was produced using [employer] dictation software. please excuse any grammatical, word or spelling errors. Time with Patient: Less than 30
--- NOTE | 2024-11-14 03:39 | DS ---
DISCHARGE SUMMARY CHIEF COMPLAINT: Left-sided pneumothorax. HISTORY OF PRESENT ILLNESS AND PHYSICAL EXAMINATION: Details of this lady's history and physical can be found in the initial workup. LABORATORY STUDIES: White she was in the hospital, she had laboratory studies, details of which can be found in the laboratory section of her chart. COURSE IN THE HOSPITAL: After admission, she was placed on bedrest, started on intravenous fluids and seen by Pulmonology. Chest tube was placed in the left chest. Several days later, there was no air leak. Chest tube was removed and her left lung remained inflated and it was felt that she could go home on the . FINAL DIAGNOSES: 1. Left-sided pneumothorax. 2. Status post left upper lobectomy for carcinoma of the lung. OPERATIONS: Chest tube placement. CONSULTATIONS: Pulmonology. JUANA / ARACELI: [id number] /
--- NOTE | 2024-11-14 06:33 | PN ---
PROGRESS NOTE DATE OF SERVICE: 11/12/2024 CHIEF COMPLAINT: Left-sided pneumothorax. HISTORY OF PRESENT ILLNESS: This lady is doing well. It seems that there is no further leak at this time. It is planned that her chest tube will come out tomorrow and she will be discharged if lung remained inflated. PHYSICAL EXAMINATION: LUNGS: She has good breath sounds bilaterally. CARDIAC: Normal. IMPRESSION: 1. Left-sided pneumothorax. 2. Chronic obstructive pulmonary disease. 3. Status post recent left upper lobectomy for carcinoma. PLAN: Await removal of chest tube probably tomorrow. MMODL / IJN: [id number] /
== END 2024-11-13 11:34 | disposition home or self-care (01) | DRG 143 ==
LOC: EC 14:57 → 5NMEDONC 17:24 → OBSVTOIN 17:25 → 5NMEDONC 18:08
PROVIDERS: ADMIT Family Medicine; ATTEND Family Medicine
PROC: 0W9B30Z Drainage of Left Pleural Cavity with Drainage Device, Percutaneous Approach (ICD-10-PCS; principal; 2024-11-09)
DX: J95.811 Postprocedural pneumothorax (principal); J94.8 Other specified pleural conditions; J91.8 Pleural effusion in other conditions classified elsewhere; J44.0 Chronic obstructive pulmonary disease with (acute) lower respiratory infection; I44.1 Atrioventricular block, second degree; C7A.8 Other malignant neuroendocrine tumors; I10 Essential (primary) hypertension; I25.10 Atherosclerotic heart disease of native coronary artery without angina pectoris; M19.90 Unspecified osteoarthritis, unspecified site; J20.9 Acute bronchitis, unspecified; F41.9 Anxiety disorder, unspecified; E78.5 Hyperlipidemia, unspecified; Z90.2 Acquired absence of lung [part of]; Z79.82 Long term (current) use of aspirin; Z79.899 Other long term (current) drug therapy; Z87.891 Personal history of nicotine dependence; Z86.018 Personal history of other benign neoplasm
CPT/HCPCS: 36415; 71045; 71046; 71260; 80048; 80053; 81001; 83735; 84145; 85025; 85610; 85730; 87040; 87070; 87205; 93005; 96361; 96374; 99291

== ENCOUNTER → 2025-02-28 | Outpatient (CLI) | payer OTHER ==
--- NOTE | 2025-02-28 07:55 | BD ---
EXAMINATION TYPE: Axial Bone Density DATE OF EXAM: 02/28/2025 CLINICAL HISTORY: 54 years old Female. ICD-10 CODE: M81.0 OSTEOPOROSIS , Additional History: Height: 65.5 Weight: 113 FRAX RISK QUESTIONS: Glucocorticoids (More than 3mos): yes, for copd, lung ca (Ex: prednisone, prednisolone, methylprednisolone, dexamethasone, and hydrocortisone). History of Fracture in Adulthood: yes 3. Menopause before 45: no at 47 Current Tobacco Use: stopped oct 25, day of lung surgery RISK FACTORS HISTORY OF: hx of coccyx and toe fxs MEDICATIONS: bp meds, chemo lung cancer, EXAM MEASUREMENTS: Bone mineral densitometry was performed using the [employer] System. Bone mineral density as measured about the Lumbar spine is: ----- L1-L4(G/cm2): 0.721 T Score Values are as follows: ----- L1: -3.5 ----- L2: -3.6 ----- L3: -3.6 ----- L4: -4.8 ----- L1-L4: -3.8 Z Score Values are as follows: ----- L1: -2.1 ----- L2: -2.2 ----- L3: -2.2 ----- L4: -3.4 ----- L1-L4: -2.4 Bone mineral density is her first bone density scan, baseline study today. Bone mineral density about the R hip (g/cm2): 0.549 Bone mineral density about the L hip (g/cm2): 0.527 T Score values are as follows: -----R Neck: -2.9 -----L Neck: -2.8 -----R Total: -3.6 -----L Total: -3.8 Z Score values are as follows: -----R Neck: -1.5 -----L Neck: -1.4 -----R Total: -2.6 -----L Total: -2.7 Bone mineral density is a baseline study for her today. FRAX%s: The graph provided illustrates a 21.3% chance for a major osteoporotic fx and a 9.7% chance f or the hips probability for fx in 10 years time. IMPRESSION: Osteoporosis (T Score less than -2.5). There is increased fracture risk and therapy is usually indicated based on age. Re-Screen 1-2 years. NOTE: T-SCORE=SD OF THE YOUNG ADULT MEAN. [facility], , 02/28/2025 7:52 AM
== END | disposition home or self-care (01) ==
LOC: RADBDWWP 06:59
PROVIDERS: ATTEND Family Medicine
DX: M81.0 Age-related osteoporosis without current pathological fracture (principal); Z78.0 Asymptomatic menopausal state
CPT/HCPCS: 77080

== ENCOUNTER → 2025-04-30 | Outpatient (CLI) | payer OTHER ==
--- NOTE | 2025-04-30 08:19 | US ---
EXAMINATION TYPE: US abdomen complete DATE OF EXAM: 04/30/2025 COMPARISON: NONE CLINICAL INDICATION: Female, 55 years old with history of R10.2 PELV PAIN R10.84 ABD PAIN R14.0 ABD D IST; patient just finsihed cancer treatment for breast CA, slightly distended abd, does take stool so fteners and has bowel movement every few days TECHNIQUE: Grayscale and color Doppler imaging of the abdomen was performed. FINDINGS: EXAM MEASUREMENTS: Liver Length: 16.1 cm Gallbladder Wall: 0.2 cm CBD: 0.6 cm, color Doppler imaging was utilized to isolate the common bile duct for measurement. Spleen: 8.7 cm Right Kidney: 10.0 x 4.0 x 5.3 cm Left Kidney: 9.9 x 4.0 x 5.3 cm Pancreas: wnl Liver: wnl, no dilated ducts, masses or cysts. Gallbladder: wnl Evidence for sonographic Bennett's sign: no CBD: wnl Spleen: wnl Right Kidney: wnl, No hydronephrosis, calculi or masses seen Left Kidney: wnl, No hydronephrosis, calculi or masses seen Upper IVC: wnl Abd Aorta: wnl The liver is homogenous. The intrahepatic portion of the IVC and proximal abdominal aorta are within normal limits. There is no evidence of cholelithiasis. Common bile duct is unremarkable. The visu alized portions of the pancreas are homogenous. The spleen is unremarkable. Kidneys are symmetric a nd free of hydronephrosis. No renal lesions are seen. IMPRESSION: No evidence for acute process. [facility], , 04/30/2025 8:17 AM
--- NOTE | 2025-04-30 08:21 | US ---
EXAMINATION TYPE: US pelvis complete transvag DATE OF EXAM: 04/30/2025 COMPARISON: NONE CLINICAL INDICATION: Female, 55 years old with history of R10.2 PELV PAIN R10.84 ABD PAIN R14.0 ABD D IST; finnished breast cancer treatments and having mild abd distention, is on stool softeners and has BM every few days, h/o right ovary and tub removal at age 16 for "mass" TECHNIQUE: TA/TV. Transabdominal grayscale sonographic images of the pelvis were acquired. Transvaginal sonographic im ages were medically necessary to better assess the following anatomy: UT and Lt OV Doppler imaging: Not performed. FINDINGS: Date of LMP: postmenopausal EXAM MEASUREMENTS: Uterus: 6.4 x 2.9 x 2.4 cm Endometrial Stripe: 0.4 cm Right Ovary: surgically absent Left Ovary: 1.6 x 1.4 x 1.4 cm 1. Uterus: Anteverted wnl 2. Endometrium: wnl 3. Right Ovary: surgically absent 4. Left Ovary: small anechoic area seen = 0.8 x 0.9 x 0.9cm 5. Bilateral Adnexa: wnl 6. Posterior cul-de-sac: wnl IMPRESSION: 1. No evidence for acute process. 2. Surgically absent right ovary. 3. Endometrium within normal limits for thickness. [facility], , 04/30/2025 8:18 AM
== END | disposition home or self-care (01) ==
LOC: RADUSWWP 07:02
PROVIDERS: ATTEND Family Medicine
DX: R10.2 Pelvic and perineal pain (principal); R10.84 Generalized abdominal pain; R14.0 Abdominal distension (gaseous); Z86.018 Personal history of other benign neoplasm; Z90.721 Acquired absence of ovaries, unilateral
CPT/HCPCS: 76700; 76830; 76856